=== PATIENT | female | born 1960 | race Caucasian/White ===

== ENCOUNTER → 2018-01-02 16:53 | Outpatient (CLI) | payer OTHER, SELFPAY | PROVIDERS: Family Provider Family Medicine; PCP Family Medicine; Visit Provider Physician Assistant Surgical | DX: R50.9 Fever, unspecified (principal) | CPT/HCPCS: 87081 ==

== ENCOUNTER → 2018-04-03 06:07 | Outpatient (CLI) | payer OTHER, SELFPAY ==
[2018-04-03 07:14] LABS: Hemoglobin A1c 5.9 % (4.2-6.3)
[2018-04-03 07:26] LABS: T4 Free Direct 1.14 ng/dL (0.76-1.46); Thyroid Stim Hormone (TSH) 2.07 uIU/mL (0.358-3.74)
== END ==
PROVIDERS: Family Provider Family Medicine; PCP Family Medicine; Visit Provider Family Medicine
DX: Z00.01 Encounter for general adult medical examination with abnormal findings (principal); E03.9 Hypothyroidism, unspecified; E78.5 Hyperlipidemia, unspecified; R73.01 Impaired fasting glucose
CPT/HCPCS: 36415; 83036; 84439; 84443

== ENCOUNTER 2018-04-16 18:30 | Outpatient (RCR) | payer OTHER, SELFPAY ==
--- NOTE | 2018-02-19 18:29 | HP.PTEVAL ---
Patient's Visit Information SUREKHA DOLAN is a 57 year old F referred to Physical Therapy by Brian Del Angel DO with a diagnosis of orthotics. Date of Evaluation: 02/19/18 Physical Therapist: Bk Phelps DPT, OC - Visit Plan Frequency: 2 visits total. Plan: Molded orthotics, call when they are in for dispensing. Pt does not want more therapy for knee or PFitis and not ordered. - Subjective Subjective: Has had orthotics in the past and now legs are cramping again as are feet. WEars a knee brace on R knee for OA. H/O plantarfasciitis whcih it helped with but that is getting worse again lately. Old orthotics are 3 yo and she wears them but does not have them on now. Has had orthotics for 15 years. R knee hurts daily to 7/10 with lots of WB anteriorly. Has bone spurs on R patella. 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 Has knee injections intermittently. B foot pain in am to 7/10 whcih gets better as the day goes on. Doing appropriate stretches and just needs orthotics. Cramps in the calves alot. Exercises. Sleep is OK except cramps. Basic ADLs are OK. Needs to exercise. Knows what to do, just wants orthotics. Nuclear meds on feet all day up and down. - Pain feet Pain Intensity (Out of 10): 1 Pain Intensity Range: 0, 7 R knee Pain Intensity (Out of 10): 2 Pain Intensity Range: 0, 8 - Objective Walks and transfers I, Tightness apparent in gastroc and soleus at 0 degrees DF. Otherwise Ankle aROM B WFL. Tender in R PF. Has moderate pes planus B, hindfoot are symmetrical. - Goals Goal 1:: Fit for and I in the use of custom orthotics. Goal Time Frame: 2-4 Weeks - Rehabilitation Potential Physical Therapy Diagnosis: orthotics. Rehabilitation Potential: Excellent - Anticipated Interventions Patient/Client Instruction: Educate patient on: Condition Comments: use orhtotics For the Purpose of:: To decrease pain Orthotics: Shoe insert For the Purpose of:: To decrease pain Thank you for the opportunity to evaluate your patient. For Medicare and Medicare HMO plans, please review the plan of care and approve it. It will need to be FAXED BACK to us at [phone] for Medicare purposes. Please let me know if there are questions or concerns regarding this plan of care. Physician Signature: Date:
--- NOTE | 2018-04-16 18:45 | HP.PTDCSUM ---
HP - PT D/C Summary It has been my pleasure to treat SUREKHA DOLAN under orders from Brian Del Angel DO, for the diagnosis of orthotics for a total of 2 visit(s). Discharge Date: 04/16/18 Please see the following information for a summary of their discharge status. - Subjective Subjective: Doing Ok. Ready for orthotics. - Pain feet Pain Intensity (Out of 10): 1 R knee Pain Intensity (Out of 10): 2 - Objective Objective/Function: good fit in shoe and patient walks comfortably in them today. - Goals Goal 1:: Fit for and I in the use of custom orthotics. Goal Progress: Goal Met - Plan Plan: D/C - D/C Information Discharge Comments: Patient orthotics fit well and will call if problems. If there are questions or concerns regarding this patient's physical therapy, please feel free to call me at [phone]. Thank you for the referral of this patient. Sincerely, Bk Phelps, DPT, OC
== END 2018-04-16 19:00 | disposition home or self-care (01) ==
LOC: PT 18:30
PROVIDERS: Family Provider Family Medicine; PCP Family Medicine; Visit Provider Family Medicine
DX: M72.2 Plantar fascial fibromatosis (principal)
CPT/HCPCS: 97161; 97760; 97763

== ENCOUNTER 2018-09-14 15:00 | Outpatient (RCR) | payer OTHER, SELFPAY ==
--- NOTE | 2018-08-21 15:56 | HP.PTEVAL_ITS ---
Patient's Visit Information SUREKHA DOLAN is a 57 year old F referred to Physical Therapy by Polo Herr MD with a diagnosis of OA RIGHT KNEE. Date of Evaluation: 08/21/18 Physical Therapist: Ekaterina Moore, PT, Cert MDT - Visit Plan Frequency: 2-3x /Week Duration: 4-6 Weeks Plan: *GETS DIZZINESS IN LYING*. AQUATIC THERAPY FOR PAIN RELEIF, POSTURE CORRECTION/STRENGTHENING, INSTRUCTION IN APPROPRIATE BODY MECHANICS AND ACTIVITY MODIFICATIONS. DLS STARTING WITH A NEUTRAL SPINE PROGRESSING ROM TOLERATED. THADDEUS LE ROM, STRETCHING AND STRENGTHENING. HEP INSTRUCTION. 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 HAS NOT TAKEN ANY TIME OFF WORK FOR THIS PER PATIENT REPORT. Disability: NO. Present symptoms: RIGHT KNEE PAIN. Present since: COUPLE OF YEARS. Pain Scale: WORST 10/10, LEAST 3/10. Currently: 5/10. Commenced as a result of: NO APPARENT REASON BUT SHE REPORTS SHE STOOD UP FROM A LOW CHAIR AT WORK BEGINNING OF JUNE AND HER RIGHT KNEE POPPED. SHE REPORTS HER KNEE GOT A LOT WORSE AFTER THAT. Symptoms at onset: KNEE CAP. Worse: PUSHING OFF RIGHT LEG, GOING UP AND DOWN STEPS IS MURDER, SQUATTING, GETTING IN/OUT OF CAR, GETTING OFF TOLIET, GETTING OUT OF A CHAIR, PROLONG STANDING. Better: RESTING IT WITH LEG ELEVATED, PRESCRIPTION CREAM, BRACE (MEDIAL TERRAZZO WORKER BRACE) BUT NO LONGER WEARING IT BECAUSE DR. HERR TOLD HER BEGINNING OF JUNE SHE DIDN'T KNEE IT. Disturbed sleep: YES. Previous history/Previous treatment: HISTORY OF RIGHT KNEE SURGERY IN LATE 70'S TO CLEAN THINGS OUT (BOTH KNEES ACTUALLY). THIS EPISODE SHE HAS HAD ABOUT [address] CLAYTON AND THEY HELPED SOME. DR. HERR ALSO GAVE HER A STEROID SHOT IN MAY 2018 AND ALSO RECEIVED A GEL SHOT BY DR. HERR BEGINNING OF JUN 2018 AND THAT SHOT DIDN'T HELP AND PATIENT THINKS IT MADE IT WORSE. NO PT FOR KNEE IN THE PAST. Gait: SINCE THE BEGINNING OF JUNE SHE HAS TO WALK VERY CAREFULLY AND WALKING IS VERY PAINFUL AND SHE LIMPS AND GIMPS SHE REPORTS SHE CAN NOT WALK FAST. Accidents: NO. NO FALLS. Unexplained weight loss: NO. Imaging: RIGHT KNEE X-RAY JUL 2017 - MILD DEGENERATIVE ARTHROSIS OF MEDIAL TIBIOFEMORAL COMPARTMENT. NO MRI. NO RECENT X-RAYS. STATES DR. HERR WILL NOT ORDER MRI. PMH: 2 BACK SURGERIES 2014 AND 1999. CERVICAL DISTONIA - TREATED WITH BOTOX, VESTIBULAR NEURITIS WITH VESTIBULAR SYSTEM DAMAGE AND BALANCE PROBLEMS. ALSO GETS DIZZINESS LYING DOWN. OTHER: LIVES UPSTAIRS SO HAS TO DO A LOT OF STEPS. PLOF (Prior Level of Function): PRIOR TO THE BEGINNING OF JUN 2018 SHE WAS ABLE TO DO EVERYTHING WITH LESS PAIN. - Objective Sitting/Standing Posture: POOR. Other Observations: INDEP ANTALGIC GAIT INTO PT WITHOUT ANY ASSISTIVE DEVICES WITH DECREASED CADANCE AND LIMPING ON RIGHT LE. Motor deficit: LLE STRENGTH 5/5 WITH MMT'ING EXCEPT HIP 4/5. RIGHT LE: HIP 4-/5, KNEE EXT 3-/5, KNEE FLEX 4-/5 IN AVAILABLE ROM, ANKLE 5/5. Sensory deficit: NO. ROM deficit: RIGHT KNE AROM IN SUPINE WITH A HEEL SLIDE -8 DEG EXT TO 106 DEG FLEX. Reflexes: NT. Dural Signs: NEGATIVE THADDEUS LE'S. Core strength: POOR. Palpation: RIGHT KNEE MILD EDEMA - LOCALIZED TO KNEE. HER RIGHT KNEE IS TENDER THROUGH OUT INCLUDING MEDIAL, LATERAL, ANTERIOR AND POSTERIOR. PATIENT IS EXPRESSING GREAT FRUSTRATION AND MAYBE EVEN DEPRESSION DUE TO THE PAIN AND NOT KNOWING WHAT IS CAUSEING IT - STATES SHE HAS BEEN PLANNING TO CALL DR. CLAYTON AND THIS PT ENCOURAGED HER TO DO SO AND TO TRY AQUATIC THERAPY. - Goals Goal 1:: DECREASE C/O RIGHT KNEE PAIN Goal Time Frame: 4-6 Weeks Goal 2:: IMPROVE ADL, STANDING, WALKING AND SLEEP FUNCTION Goal Time Frame: 4-6 Weeks Goal 3:: INDEP HEP Goal Time Frame: 4-6 Weeks - Rehabilitation Potential Rehabilitation Potential: Fair - Anticipated Interventions Patient/Client Instruction: Educate patient on: Condition, Plan of Care, Risk Factors, Benefits of Fitness Program For the Purpose of:: To improve self management Therapeutic Exercise to Include: Strength training, Body mechanics, Postural training, Flexibilty training, In an aquatic setting, Active ROM For the Purpose of:: To decrease pain, To increase ROM, To improve muscle performance and motor function, To increase tolerance to activity/condition/ position, To improve ability of physical actions for home/community/work/leisure TENS: Yes IF ES: Yes Cryotherapy (ice pack, ice massage): Yes Thermo therapy (hot pack): Yes Ultrasound (thermal/non thermal): Yes For the Purpose of:: To decrease pain, To decrease swelling/inflammation, To increase ROM, To improve nutrient delivery to tissue Thank you for the opportunity to evaluate your patient. For Medicare and Medicare HMO plans, please review the plan of care and approve it. It will need to be FAXED BACK to us at [phone] for Medicare purposes. For Medicare only, by signing this I certify the plan of care. Please let me know if there are questions or concerns regarding this plan of care. Physician Signature: Date:
--- NOTE | 2018-09-14 15:31 | HP.PTDCSUM ---
HP - PT D/C Summary It has been my pleasure to treat SUREKHA DOLAN under orders from Polo Herr MD, for the diagnosis of OA RIGHT KNEE for a total of 10 visit(s). Discharge Date: Please see the following information for a summary of their discharge status. - Subjective Subjective: PATIENT REPORTS SHE REALLY ISN'T BETTING BETTER BUT FOR THE MOST PART SHE COULD TOLERATED THE WATER EX'S. SHE REPORTS LIKING SOME INCREASED FREEDOM OF MVMT IN THE POOL THAT SHE DOESN'T HAVE ON LAND. STATES SHE DOESN'T THINK SHE CAN TOLERATED LAND EX'S. SHE REPORTS HER KNEE IS JUST SO SORE. JUST CAME FROM WORKING 7 HOURS. PATIENT REPORTS SHE JUST REALLY WANTS TO KNOW WHAT IS WRONG WITH HER KNEE AND SHE IS GOING TO GO BACK TO DR. CLAYTON NEXT WEEK. - Pain R knee Pain Intensity (Out of 10): 9 - Objective Objective/Function: PATIENT IS NOT MAKING SIGNIFICANT PROGRESS WITH HER KNEE HOWEVER SHE IS NOW INDEP WITH A POOL PROGRAM THAT SHE CAN TOLERATE WITHOUT INCREASED KNEE PAIN. INDEP ANTALGIC GAIT INTO PT WITHOUT ANY ASSISTIVE DEVICES WITH DECREASED CADANCE AND LIMPING ON RIGHT LE. Motor deficit: LLE STRENGTH 5/5 WITH MMT'ING EXCEPT HIP 4/5. RIGHT LE: HIP 4-/5, KNEE EXT 3-/5, KNEE FLEX 4-/5 IN AVAILABLE ROM, ANKLE 5/5. Sensory deficit: NO. ROM deficit: RIGHT KNEE AROM IN SUPINE WITH A HEEL SLIDE -7 DEG EXT TO 111 DEG FLEX. Reflexes: NT. Core strength: POOR. Palpation: RIGHT KNEE MILD EDEMA - LOCALIZED TO KNEE. HER RIGHT KNEE IS TENDER THROUGH OUT INCLUDING MEDIAL, LATERAL, ANTERIOR AND POSTERIOR. PATIENT IS AGAIN EXPRESSING GREAT FRUSTRATION WITH HER KNEE PAIN AND DYSFUNCTION LIMITING HER NORMAL ACTIVITES. APPOINTMENT WITH DR. CLAYTON PENDING SEP 23 2018. - Goals Goal 1:: DECREASE C/O RIGHT KNEE PAIN Goal Progress: Not Progressing Goal 2:: IMPROVE ADL, STANDING, WALKING AND SLEEP FUNCTION Goal Progress: Not Progressing Goal 3:: INDEP HEP Goal Progress: Not Progressing - Plan Plan: D/C DUE TO LACK OF IMPROVEMENT BUT ENCOURAGED PATIENT TO KEEP UP WITH THE POOL EX'S ON HER OWN TOLERATED. - D/C Information If there are questions or concerns regarding this patient's physical therapy, please feel free to call me at [phone]. Thank you for the referral of this patient. Sincerely, Ekaterina Moore, PT, Cert MDT
== END 2018-09-14 19:00 | disposition home or self-care (01) ==
LOC: PT 15:00
PROVIDERS: Family Provider Family Medicine; PCP Family Medicine; Referring Provider Orthopaedic Surgery; Visit Provider Orthopaedic Surgery
DX: M17.11 Unilateral primary osteoarthritis, right knee (principal)
CPT/HCPCS: 97110; 97113; 97162; 97530

== ENCOUNTER → 2018-10-08 12:04 | Outpatient (CLI) | payer OTHER, SELFPAY ==
--- NOTE | 2018-10-08 12:08 | MRI_ITS ---
STUDY: MRI RIGHT KNEE REASON FOR EXAM: Right knee pain increasing for 2 years, swelling, prior surgery. TECHNIQUE: Standardized fat and water weighted pulse sequences were obtained in all 3 orthogonal planes. COMPARISON: Radiographs 08/15/2017. FINDINGS: Normal medial meniscus. There is mild arthrosis of the medial femorotibial compartment with mild chondral thinning (T2 sagittal image 18). There is very mild subchondral bone edema of the medial tibial plateau (T2 sagittal images 16, 17), a stress phenomenon. Normal medial collateral ligamentous complex (MCL). Normal distal semimembranosus, gracilis and semitendinosus tendons. Normal lateral meniscus. Normal hyaline cartilage of the lateral femorotibial compartment. Normal lateral femoral condyle and tibial plateau. Normal proximal tibiofibular articulation. Normal lateral collateral (fibular) ligament. Normal popliteus tendon. Normal biceps femoris tendon. Normal anterior cruciate ligament (ACL). Normal posterior cruciate ligament (PCL). Normal congruent patellofemoral articulation. There is intermediate to high-grade chondromalacia of the medial patellar facet (T2 axial image 8) with very mild subchondral cystic change. Normal medial and lateral patellar retinaculum. There is distal quadriceps tendinosis and an intrasubstance partial tear of the distal quadriceps tendon measuring 0.6 cm in length (T2 sagittal image 13; T2 coronal image 28). Normal patellar tendon. Normal Hoffa's fat pad. There is no joint effusion. There is a small popliteal cyst (T2 sagittal images 18-22). There is edema in the anterior subcutis adipose space. The otherwise visualized osseous structures are unremarkable. MRI/Lower Ext Joint Only (Routine) IMPRESSION: Mild arthrosis of the medial femorotibial compartment. Chondromalacia patellae. Intrasubstance partial tear and tendinosis of the distal quadriceps tendon. Very mild subchondral bone edema of the medial tibial plateau, a stress phenomenon. Small popliteal cyst. Electronically Signed: José Miguel Irizarry MD at 14:14 EST Tel , Service support ,
== END ==
PROVIDERS: Family Provider Family Medicine; PCP Family Medicine; Referring Provider Family Medicine; Visit Provider Family Medicine
DX: M25.561 Pain in right knee (principal)
CPT/HCPCS: 73721

== ENCOUNTER 2018-12-18 19:04 | Inpatient (IN) | payer OTHER, SELFPAY ==
[2018-12-18 19:08] VITALS: BP 127/73; PULSE 86; RESP 18; TEMP 36.5; O2SAT 95
--- NOTE | 2018-12-18 19:38 | NURSING ---
Patient arrived from [facility], oriented to room and call light.
--- NOTE | 2018-12-18 19:45 | PCM.HP.STD ---
Problem List (1) Osteoarthritis of right knee Status: Chronic (2) Anxiety Status: Chronic (3) Muscle spasm Status: Chronic (4) Hypertension Status: Chronic (5) Allergic rhinitis Status: Chronic (6) Sleep apnea Status: Chronic (7) Coronary artery disease Status: Chronic (8) GERD (gastroesophageal reflux disease) Status: Chronic (9) Herpes zoster Status: Chronic (10) Carotid stenosis Status: Chronic (11) Depression Status: Chronic (12) Hypothyroidism Status: Chronic History of Present Illness Date of Admission: 12/18/18 Chief Complaint: Here for rehabilitation, strengthening, prior to discharge home with family. The patient is a 58 year old Female with below past medical history hospitalized at [facility] for right total knee replacement 12/16/[address] Polo Herr. Post-operative course uncomplicated. 12/18/2018 Hemoglobin 14.2. 12/18/2018 Admit to TCU with debility here for rehabilitation, strengthening, prior to discharge home with family. Past Medical History Past Medical History (Chronic Problems): Chronic Problems (Last Reviewed 01/02/18 @ 10:33 by Ara Merritt) Osteoarthritis of right knee (Chronic) Anxiety (Chronic) Muscle spasm (Chronic) Hypertension (Chronic) Allergic rhinitis (Chronic) Sleep apnea (Chronic) Coronary artery disease (Chronic) GERD (gastroesophageal reflux disease) (Chronic) Herpes zoster (Chronic) Carotid stenosis (Chronic) Depression (Chronic) Hypothyroidism (Chronic) Allergies atenolol Allergy (Verified 01/02/18 10:33) Other neuropathy in my legs butorphanol tartrate [From Stadol] Allergy (Verified 01/02/18 10:33) Anaphylaxis doxycycline Allergy (Verified 01/02/18 10:33) Unknown prochlorperazine edisylate [From Compazine] Allergy (Verified 01/02/18 10:33) Swelling prochlorperazine maleate [From Compazine] Allergy (Verified 01/02/18 10:33) Swelling tetracycline Allergy (Verified 01/02/18 10:33) Unknown Home Medications: Ambulatory Orders Medication Instructions Recorded Levothyroxine [Synthroid] 75 mcg PO DAILY 07/09/13 Amlodipine [Norvasc] 5 mg PO QHS 04/26/15 Esomeprazole Mag Trihydrate 40 mg PO QHS 04/28/15 [Nexium] Diazepam [Valium] 5 mg PO DAILY PRN PRN 09/25/16 Lorazepam [Ativan] 1 mg PO DAILY PRN PRN 09/25/16 Mometasone Furoate [Nasonex] 2 spray NASAL DAILY PRN 09/25/16 Surgical History: cholecystectomy, - - Breast reduction, BLTL, L wrist ganglion cyst removal, back surgery, knee arthroscopy, lumpectomy, bladder suspension. 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 Lives: With Family Smoking Status: Former smoker Tobacco Use: Non-smoker Alcohol: Occasional Drugs: None - *Family History Maternal History Items: No pertinent history Paternal History Items: No pertinent history Review of Systems Constitutional: Denies: Chills, Fever, Weight Change HEENT: Denies: Head Aches, Sinus Congestion, Sinus Drainage Cardiovascular: Denies: Chest Pain, Palpitations Respiratory: Denies: Cough, Shortness of breath at rest, Sputum production Gastrointestinal: Denies: Abdominal Pain, Nausea, Vomiting Genitourinary: Denies: Dysuria Musculoskeletal: Denies: Joint Pain, Joint Tenderness Skin: Denies: Rash, Wounds Neurological: Denies: Numbness, Tingling, Focal weakness Psychiatric: Denies: Anxiety, Depression, Homicidal Ideations, Suicidal Ideations Hematologic/ Lymphatic: Denies: Easy Bruising, Easy Bleeding VTE Information - Inpt Only VTE Present on Admission: No VTE Mechan Device Prophylaxis: Knee High MOR Hose VTE Pharm Prophylaxis ordered?: Yes - Physical Exam General: Alert, Oriented x3, Cooperative HEENT: Atraumatic, PERRLA, EOMI, Normocephalic Neck: Supple, No JVD, Negative Carotid Bruits Lungs: Clear to auscultation, Normal air movement Cardiovascular: Regular rate, No murmurs Abdomen: Bowel Sounds Present, Soft, Non Tender Extremities: No edema, Capillary Refill Less than 3 Seconds Skin: No rashes, No breakdown Musculoskeletal: No Tenderness to Palpation of Joints or Extremities Neurological: Cranial nerves II-XII grossly intact Psych/Mental Status: Normal Affect, Appropriate Vital Signs Temp Pulse Resp BP Pulse Ox 97.7 F L 86 18 127/73 H 95 12/18/18 19:08 12/18/18 19:08 12/18/18 19:08 12/18/18 19:08 12/18/18 19:08 Oxygen Delivery Method Room Air Assessment/Plan All Active Problems (Last Reviewed 01/02/18 @ 10:33 by Ara Merritt) Nausea (Acute) Otitis media (Acute) Sinusitis (Acute) Vestibular neuritis (Acute) Vertigo (Acute) 58 year old female with below past medical history hospitalized for right total knee replacement 12/16/[address] Polo Herr, postoperative course uncomplicated, admitted to TCU with debility, here for rehabilitation, strengthening, prior to discharge home with family. Debility - PT/OT. Pain - Tylenol 1000MG Q8H, Tramadol 50MG Q4H PRN moderate pain, Oxycodone 5MG Q4H PRN severe pain. Bowel - Miralax 17GM daily, Senokot 2 tablets BID, Dulcolax 10MG daily PRN. Pneumonia vaccination - Administer Prevnar 13 and/or Pneumovax 23 as necessary. DVT prophylaxis - Lovenox 40MG SC daily thru 01/02/2019. Hypertension - Amlodipine 5MG QHS. Vitamin D deficiency - D3 1000IU daily. Anxiety - Diazepam 5MG daily PRN. Allergic Rhinitis - Flonase 2 spray daily PRN. Hypothyroidism - Levothyroxine 75MCG daily. Dizziness - Meclizine 12.5MG TID PRN, Ativan 1MG daily PRN. Insomnia - Melatonin 5MG QHS. Nutrition - MVI daily. GERD - Pantoprazole 40MG QHS.
--- NOTE | 2018-12-18 20:01 | HP.PCM_ITS ---
Problem List (1) Osteoarthritis of right knee Status: Chronic (2) Anxiety Status: Chronic (3) Muscle spasm Status: Chronic (4) Hypertension Status: Chronic (5) Allergic rhinitis Status: Chronic (6) Sleep apnea Status: Chronic (7) Coronary artery disease Status: Chronic (8) GERD (gastroesophageal reflux disease) Status: Chronic (9) Herpes zoster Status: Chronic (10) Carotid stenosis Status: Chronic (11) Depression Status: Chronic (12) Hypothyroidism Status: Chronic History of Present Illness Date of Admission: 12/18/18 Chief Complaint: Here for rehabilitation, strengthening, prior to discharge home with family. The patient is a 58 year old Female with below past medical history hospitalized at [facility] for right total knee replacement 12/16/[address] Polo Herr. Post-operative course uncomplicated. 12/18/2018 Hemoglobin 14.2. 12/18/2018 Admit to TCU with debility here for rehabilitation, strengthening, prior to discharge home with family. Past Medical History Past Medical History (Chronic Problems): Chronic Problems (Last Reviewed 01/02/18 @ 10:33 by Ara Merritt) Osteoarthritis of right knee (Chronic) Anxiety (Chronic) Muscle spasm (Chronic) Hypertension (Chronic) Allergic rhinitis (Chronic) Sleep apnea (Chronic) Coronary artery disease (Chronic) GERD (gastroesophageal reflux disease) (Chronic) Herpes zoster (Chronic) Carotid stenosis (Chronic) Depression (Chronic) Hypothyroidism (Chronic) Allergies atenolol Allergy (Verified 01/02/18 10:33) Other neuropathy in my legs butorphanol tartrate [From Stadol] Allergy (Verified 01/02/18 10:33) Anaphylaxis doxycycline Allergy (Verified 01/02/18 10:33) Unknown prochlorperazine edisylate [From Compazine] Allergy (Verified 01/02/18 10:33) Swelling prochlorperazine maleate [From Compazine] Allergy (Verified 01/02/18 10:33) Swelling tetracycline Allergy (Verified 01/02/18 10:33) Unknown Home Medications: Ambulatory Orders Medication Instructions Recorded Levothyroxine [Synthroid] 75 mcg PO DAILY 07/09/13 Amlodipine [Norvasc] 5 mg PO QHS 04/26/15 Esomeprazole Mag Trihydrate 40 mg PO QHS 04/28/15 [Nexium] Diazepam [Valium] 5 mg PO DAILY PRN PRN 09/25/16 Lorazepam [Ativan] 1 mg PO DAILY PRN PRN 09/25/16 Mometasone Furoate [Nasonex] 2 spray NASAL DAILY PRN 09/25/16 Surgical History: cholecystectomy, - - Breast reduction, BLTL, L wrist ganglion cyst removal, back surgery, knee arthroscopy, lumpectomy, bladder suspension. 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 Lives: With Family Smoking Status: Former smoker Tobacco Use: Non-smoker Alcohol: Occasional Drugs: None - *Family History Maternal History Items: No pertinent history Paternal History Items: No pertinent history Review of Systems Constitutional: Denies: Chills, Fever, Weight Change HEENT: Denies: Head Aches, Sinus Congestion, Sinus Drainage Cardiovascular: Denies: Chest Pain, Palpitations Respiratory: Denies: Cough, Shortness of breath at rest, Sputum production Gastrointestinal: Denies: Abdominal Pain, Nausea, Vomiting Genitourinary: Denies: Dysuria Musculoskeletal: Denies: Joint Pain, Joint Tenderness Skin: Denies: Rash, Wounds Neurological: Denies: Numbness, Tingling, Focal weakness Psychiatric: Denies: Anxiety, Depression, Homicidal Ideations, Suicidal Ideations Hematologic/ Lymphatic: Denies: Easy Bruising, Easy Bleeding VTE Information - Inpt Only VTE Present on Admission: No VTE Mechan Device Prophylaxis: Knee High MOR Hose VTE Pharm Prophylaxis ordered?: Yes - Physical Exam General: Alert, Oriented x3, Cooperative HEENT: Atraumatic, PERRLA, EOMI, Normocephalic Neck: Supple, No JVD, Negative Carotid Bruits Lungs: Clear to auscultation, Normal air movement Cardiovascular: Regular rate, No murmurs Abdomen: Bowel Sounds Present, Soft, Non Tender Extremities: No edema, Capillary Refill Less than 3 Seconds Skin: No rashes, No breakdown Musculoskeletal: No Tenderness to Palpation of Joints or Extremities Neurological: Cranial nerves II-XII grossly intact Psych/Mental Status: Normal Affect, Appropriate Vital Signs Temp Pulse Resp BP Pulse Ox 97.7 F L 86 18 127/73 H 95 12/18/18 19:08 12/18/18 19:08 12/18/18 19:08 12/18/18 19:08 12/18/18 19:08 Oxygen Delivery Method Room Air Assessment/Plan All Active Problems (Last Reviewed 01/02/18 @ 10:33 by Ara Merritt) Nausea (Acute) Otitis media (Acute) Sinusitis (Acute) Vestibular neuritis (Acute) Vertigo (Acute) 58 year old female with below past medical history hospitalized for right total knee replacement 12/16/[address] Polo Herr, postoperative course uncomplicated, admitted to TCU with debility, here for rehabilitation, strengthening, prior to discharge home with family. * Debility - PT/OT. * Pain - Tylenol 1000MG Q8H, Tramadol 50MG Q4H PRN moderate pain, Oxycodone 5MG Q4H PRN severe pain. * Bowel - Miralax 17GM daily, Senokot 2 tablets BID, Dulcolax 10MG daily PRN. * Pneumonia vaccination - Administer Prevnar 13 and/or Pneumovax 23 as nec essary. * DVT prophylaxis - Lovenox 40MG SC daily thru 01/02/2019. * Hypertension - Amlodipine 5MG QHS. * Vitamin D deficiency - D3 1000IU daily. * Anxiety - Diazepam 5MG daily PRN. * Allergic Rhinitis - Flonase 2 spray daily PRN. * Hypothyroidism - Levothyroxine 75MCG daily. * Dizziness - Meclizine 12.5MG TID PRN, Ativan 1MG daily PRN. * Insomnia - Melatonin 5MG QHS. * Nutrition - MVI daily. * GERD - Pantoprazole 40MG QHS.
[2018-12-18 21:07] VITALS: BMI 41.9
[2018-12-18 21:12] VITALS: BMI 42.0
[2018-12-18] MEDS: traMADol 50 MG Tablet PO (21:21)
[2018-12-18] MEDS: LORazepam 1 MG Tablet PO (21:21)
[2018-12-18] MEDS: Pantoprazole Sodium 40 MG Tablet PO (21:23)
[2018-12-18] MEDS: amLODIPine 5 MG Tablet PO (21:23)
[2018-12-18] MEDS: MELATONIN 10 MG TABLET 5 MG PO (21:23)
[2018-12-19] MEDS: Acetaminophen 500 MG Tablet 1000 MG PO ×2 (05:15→13:24)
[2018-12-19] MEDS: Enoxaparin 40 MG/0.4 ML Syringe SC (05:16)
[2018-12-19] MEDS: Levothyroxine 75 MCG Tablet PO (05:16)
[2018-12-19] MEDS: Polyethylene Glycol 3350 17 GM PACKET PO (05:17)
[2018-12-19] MEDS: Senna Tablet 2 TABLET PO (05:17)
[2018-12-19] MEDS: Multivitamins,Therapeutic Tablet 1 TABLET PO (08:11)
[2018-12-19 08:45] LABS: Absolute Lymphocyte Count 2.02 X10^3/ul (0.83-4.51); Absolute Neutrophil Count 7.1 X10^3/uL (2.0-7.7); Basophil# 0.05 X10^3/uL; Basophil% 0.5 % (0-1); Eosinophil# 0.34 X10^3/uL; Eosinophils% 3.3 % (0-5); Hematocrit 41.9 % (37-47); Hemoglobin 13.9 g/dl (12.0-15.0); Lymphocyte # 2.02 X10^3/ul (4.0); Lymphocyte % 19.7 % (19-41); Mean Corp Hgb Conc 33.2 g/gl (32-36); Mean Corpuscular Hgb 28.1 pg (27.0-32.0); Mean Corpuscular Volume 84.8 fL (81-99); Mean Platelet Vol. 8.6 fl (6.2-12.0); Monocyte% 6.8 % (0-10); Neutrophil # 7.12 X10^3/uL (2.7-7.7); Neutrophil % 69.3 % (47-70); Platelet Count 378 K/mm3 (150-450); RBC Distribution Width CV 13.7 % (11.6-14.6); RBC Distribution Width SD 41.9 fl (35.1-43.9); Red Blood Count 4.94 M/mm3 (4.2-5.4); White Blood Count 10.3 K/mm3 (4.4-11.0)
[2018-12-19 08:47] LABS: POSITIVE COUNT NO; POSITIVE DIFFERENTIAL NO; POSITIVE MORPHOLOGY NO
[2018-12-19 08:55] LABS: Anion Gap 8 (5-15); BUN 13 mg/dL (7-18); BUN/Creat Ratio 18.7 RATIO (10-20); Calcium,Total 8.4 mg/dL (8.5-10.1); Chloride 98 mmol/L (98-107); EST Glomerular Filtration Rate 92 mL/min (>60); Est Glom Filt Rate - Afr Amer 111 mL/min (>60); Estimated Creatinine Clearance 68.44 ml/min; Glucose 178 mg/dL (74-106); Potassium 3.2 mmol/L (3.5-5.1); Sodium Level 136 mmol/L (136-145)
[2018-12-19] MEDS: traMADol 50 MG Tablet PO ×2 (09:15→13:26)
[2018-12-19] MEDS: Tuberculin,Purif.prot.deriv. 50 TU/ML Vial 5 ML ID (11:38)
--- NOTE | 2018-12-19 13:17 | NURSING ---
Dr. Le updated on potassium level, new order for KCL 40mEq x1 now then 20mEq daily, recheck BMP in AM.
[2018-12-19 15:58] VITALS: BP 155/96; PULSE 76; RESP 18; TEMP 36.8; O2SAT 93
[2018-12-19] MEDS: MELATONIN 10 MG TABLET 5 MG PO (20:51)
[2018-12-19] MEDS: Pantoprazole Sodium 40 MG Tablet PO (20:52)
[2018-12-19] MEDS: amLODIPine 5 MG Tablet PO (20:52)
[2018-12-20] MEDS: LORazepam 1 MG Tablet PO (01:05)
[2018-12-20] MEDS: Levothyroxine 75 MCG Tablet PO (05:22)
[2018-12-20] MEDS: Enoxaparin 40 MG/0.4 ML Syringe SC (05:22)
[2018-12-20] MEDS: Polyethylene Glycol 3350 17 GM PACKET PO (05:24)
[2018-12-20 07:49] LABS: Anion Gap 9 (5-15); BUN 11 mg/dL (7-18); BUN/Creat Ratio 20.5 RATIO (10-20); Calcium,Total 8.4 mg/dL (8.5-10.1); Chloride 100 mmol/L (98-107); Creatinine, Serum 0.54 mg/dL (0.55-1.02); EST Glomerular Filtration Rate 124 mL/min (>60); Est Glom Filt Rate - Afr Amer 150 mL/min (>60); Estimated Creatinine Clearance 88.72 ml/min; Glucose 145 mg/dL (74-106); Sodium Level 138 mmol/L (136-145)
[2018-12-20] MEDS: Multivitamins,Therapeutic Tablet 1 TABLET PO (07:53)
[2018-12-20] MEDS: Bisacodyl 5 MG Tablet 10 MG PO (07:57)
--- NOTE | 2018-12-20 10:48 | NURSING ---
Dr. Le reviewed labs, new order to increase KCL to 40mEq BID and recheck BMP Friday. Tylenol made PRN.
[2018-12-20] MEDS: traMADol 50 MG Tablet PO ×2 (13:03→18:21)
[2018-12-20 16:00] VITALS: BP 138/74; PULSE 90; RESP 16; TEMP 36.9; O2SAT 95
[2018-12-20] MEDS: Senna Tablet 2 TABLET PO (16:54)
[2018-12-20] MEDS: Acetaminophen 500 MG Tablet 1000 MG PO (19:44)
[2018-12-20] MEDS: Pantoprazole Sodium 40 MG Tablet PO (21:10)
[2018-12-20] MEDS: amLODIPine 5 MG Tablet PO (21:10)
[2018-12-20] MEDS: MELATONIN 10 MG TABLET 5 MG PO (21:10)
[2018-12-21] MEDS: Levothyroxine 75 MCG Tablet PO (05:27)
[2018-12-21] MEDS: Enoxaparin 40 MG/0.4 ML Syringe SC (05:27)
[2018-12-21] MEDS: Polyethylene Glycol 3350 17 GM PACKET PO (05:27)
[2018-12-21] MEDS: Senna Tablet 2 TABLET PO ×2 (05:27→16:32)
[2018-12-21] MEDS: Multivitamins,Therapeutic Tablet 1 TABLET PO (08:16)
[2018-12-21] MEDS: traMADol 50 MG Tablet PO ×2 (08:59→12:56)
[2018-12-21] MEDS: Acetaminophen 500 MG Tablet 1000 MG PO (09:03)
--- NOTE | 2018-12-21 13:38 | CASEMGMT ---
Insurance Clinical updates faxed. Will await continued stay determination. Auth #[id number] BRENDA Mccloud
[2018-12-21 15:18] VITALS: BP 134/81; PULSE 80; RESP 16; TEMP 37.3; O2SAT 94
[2018-12-21] MEDS: MELATONIN 10 MG TABLET 5 MG PO (20:22)
[2018-12-21] MEDS: amLODIPine 5 MG Tablet PO (20:22)
[2018-12-21] MEDS: Pantoprazole Sodium 40 MG Tablet PO (20:22)
[2018-12-21] MEDS: LORazepam 1 MG Tablet PO (21:44)
[2018-12-22] MEDS: Acetaminophen 500 MG Tablet 1000 MG PO ×2 (02:49→11:47)
[2018-12-22 06:26] LABS: Anion Gap 8 (5-15); BUN 10 mg/dL (7-18); Calcium,Total 8.7 mg/dL (8.5-10.1); Chloride 102 mmol/L (98-107); Creatinine, Serum 0.56 mg/dL (0.55-1.02); EST Glomerular Filtration Rate 119 mL/min (>60); Est Glom Filt Rate - Afr Amer 144 mL/min (>60); Estimated Creatinine Clearance 85.55 ml/min; Glucose 127 mg/dL (74-106); Sodium Level 138 mmol/L (136-145)
[2018-12-22] MEDS: Levothyroxine 75 MCG Tablet PO (06:26)
[2018-12-22] MEDS: Enoxaparin 40 MG/0.4 ML Syringe SC (06:26)
[2018-12-22] MEDS: Multivitamins,Therapeutic Tablet 1 TABLET PO (08:53)
--- NOTE | 2018-12-22 11:03 | PHA.CONS_ITS ---
<ZulmaWaiTobias D - Last Filed: 12/22/18 10:57> Progress Note - Pharmacy Subjective: [] Objective: Allergies atenolol Allergy (Verified 01/02/18 10:33) Other neuropathy in my legs butorphanol tartrate [From Stadol] Allergy (Verified 01/02/18 10:33) Anaphylaxis doxycycline Allergy (Verified 01/02/18 10:33) Unknown prochlorperazine edisylate [From Compazine] Allergy (Verified 01/02/18 10:33) Swelling prochlorperazine maleate [From Compazine] Allergy (Verified 01/02/18 10:33) Swelling tetracycline Allergy (Verified 01/02/18 10:33) Unknown Current Medications Generic Name Dose Route Start Last Admin Trade Name Freq PRN Reason Stop Dose Admin Acetaminophen 1,000 mg 12/20/18 10:49 12/22/18 02:49 Tylenol PO 1,000 mg Q8H PRN Administration MILD PAIN (1-3/10) Amlodipine Besylate 5 mg 12/18/18 22:00 12/21/18 20:22 Norvasc PO 5 mg QHS ANIVAL Administration Bisacodyl 10 mg 12/18/18 21:35 12/20/18 07:57 Dulcolax PO 10 mg DAILY PRN Administration Constipation Cholecalciferol 1,000 unit 12/19/18 06:00 12/22/18 06:26 Vitamin D PO 1,000 unit DAILY ANIVAL Administration Diazepam 5 mg 12/18/18 19:53 Valium PO DAILY PRN PRN ANXIETY Enoxaparin Sodium 40 mg 12/19/18 06:00 12/22/18 06:26 Lovenox SC 01/02/19 06:01 40 mg DAILY@0600 ANIVAL Administration Fluticasone Propionate 2 spray 12/18/18 19:53 Flonase Nasal [place] NASAL DAILY PRN NASAL CONGESTION Levothyroxine Sodium 75 mcg 12/19/18 06:00 12/22/18 06:26 Synthroid PO 75 mcg DAILY ANIVAL Administration Lorazepam 1 mg 12/18/18 19:53 12/21/18 21:44 Ativan PO 1 mg DAILY PRN PRN Administration Vertigo Meclizine HCl 12.5 mg 12/18/18 19:55 Antivert PO TID PRN PRN DIZZINESS Melatonin 5 mg 12/18/18 22:00 12/21/18 20:22 Melatonin PO 5 mg QHS ANIVAL Administration Multivitamins 1 tablet 12/19/18 08:00 12/22/18 08:53 Multivitamin PO 1 tablet DAILYCM [facility] Administration Oxycodone HCl 5 mg 12/18/18 21:35 Oxyir PO Q4H PRN PRN SEVERE PAIN (6-10/10) Pantoprazole Sodium 40 mg 12/18/18 22:00 12/21/18 20:22 Protonix PO 40 mg QHS ANIVAL Administration Polyethylene Glycol 17 gm 12/19/18 06:00 12/22/18 06:28 Miralax PO Not Given DAILY ANIVAL Potassium Chloride 40 meq 12/20/18 17:00 12/22/18 08:53 K-Dur PO 40 meq BIDCM ANIVAL Administration Senna 2 tablet 12/19/18 06:00 12/22/18 06:28 Senokot PO Not Given BID ANIVAL Tramadol HCl 50 mg 12/18/18 20:01 12/21/18 12:56 Ultram PO 50 mg Q4H PRN PRN Administration MODERATE PAIN (4-5/10) Tuberculin PPD 5 tu 12/26/18 10:00 Tubersol, Aplisol, Ppd ID 12/26/18 10:01 X1 ONE Problem List (Last Reviewed 01/02/18 @ 10:33 by Ara Merritt) Osteoarthritis of right knee (Chronic) Anxiety (Chronic) Muscle spasm (Chronic) Hypertension (Chronic) Allergic rhinitis (Chronic) Sleep apnea (Chronic) Coronary artery disease (Chronic) GERD (gastroesophageal reflux disease) (Chronic) Herpes zoster (Chronic) Carotid stenosis (Chronic) Depression (Chronic) Vital Signs Temp Pulse Resp BP Pulse Ox 99.1 F 80 16 134/81 H 94 12/21/18 15:18 12/21/18 15:18 12/21/18 15:18 12/21/18 15:18 12/21/18 15:18 Oxygen Delivery Method Room Air Weight: 104.014 kg Body Mass Index (BMI) 41.9 Sodium 138 mmol/L (136-145) 12/22/18 05:20 Potassium 4.0 mmol/L (3.5-5.1) 12/22/18 05:20 Chloride 102 mmol/L (98-107) 12/22/18 05:20 Carbon Dioxide 28.0 mmol/L (21.0-32.0) 12/22/18 05:20 Anion Gap 8 (5-15) 12/22/18 05:20 BUN 10 mg/dL (7-18) 12/22/18 05:20 Creatinine 0.56 mg/dL (0.55-1.02) 12/22/18 05:20 Est GFR (MDRD) Af Amer 144 mL/min (>60) 12/22/18 05:20 Est GFR (MDRD) Non-Af 119 mL/min (>60) 12/22/18 05:20 BUN/Creatinine Ratio 18.0 RATIO (10-20) 12/22/18 05:20 Glucose 127 mg/dL (74-106) H 12/22/18 05:20 Assessment/Plan: 1) Pain APAP for mild pain, tramadol for moderate pain, oxycodone for severe pain. Continue to monitor daily pain scores, prn medication use. 2) HTN Amlodipine. Continue to monitor BP/HR. 3) Hypothyroidism Levothyroxine. Continue to monitor s/s hyper/hypothyroidism. 4) GI Pantoprazole. Continue to monitor s/s GI distress. 5) Nutrition KCL, D. Continue to monitor electrolytes. 6) Sleep Melatonin at HS. Continue to monitor for insomnia. 7) DVT PPx Enoxaparin thru 01/02. Continue to monitor s/s bleeding/clot. Psychotropic Medications: * 8) Anxiety/Vertigo Diazepam for anxiety, lorazepam for vertigo, meclizine for dizziness. Continue to monitor prn medication use, for s/s anxiety. * Please evaluate the need for having 2 prn benzodiazepines available for use in addition for meclizine when considering vertigo. Consider dc one. Please also clarify instructions. Typically, diazepam is used for vertigo and lorazepam is used for anxiety. Unnecessary Medications: None Bowel Regimen: 9) Senna, PEG, prn bisacodyl. Continue to monitor prn medication use, for constipation/diarrhea. Date of Note:: 12/22/18 - Provider Comments Provider responsibility: Provider responsible to enter orders to implement recommendations <Anup Le Chi - Last Filed: 12/22/18 17:29> Progress Note - Pharmacy Subjective: [] Objective: Allergies atenolol Allergy (Verified 01/02/18 10:33) Other neuropathy in my legs butorphanol tartrate [From Stadol] Allergy (Verified 01/02/18 10:33) Anaphylaxis doxycycline Allergy (Verified 01/02/18 10:33) Unknown prochlorperazine edisylate [From Compazine] Allergy (Verified 01/02/18 10:33) Swelling prochlorperazine maleate [From Compazine] Allergy (Verified 01/02/18 10:33) Swelling tetracycline Allergy (Verified 01/02/18 10:33) Unknown Current Medications Generic Name Dose Route Start Last Admin Trade Name Freq PRN Reason Stop Dose Admin Acetaminophen 1,000 mg 12/20/18 10:49 12/22/18 11:47 Tylenol PO 1,000 mg Q8H PRN Administration MILD PAIN (1-310) Amlodipine Besylate 5 mg 12/18/18 22:00 12/21/18 20:22 Norvasc PO 5 mg QHS ANIVAL Administration Bisacodyl 10 mg 12/18/18 21:35 12/20/18 07:57 Dulcolax PO 10 mg DAILY PRN Administration Constipation Cholecalciferol 1,000 unit 12/19/18 06:00 12/22/18 06:26 Vitamin D PO 1,000 unit DAILY ANIVAL Administration Diazepam 5 mg 12/18/18 19:53 Valium PO DAILY PRN PRN ANXIETY Enoxaparin Sodium 40 mg 12/19/18 06:00 12/22/18 06:26 Lovenox SC 01/02/19 06:01 40 mg DAILY@0600 ANIVAL Administration Fluticasone Propionate 2 spray 12/18/18 19:53 Flonase Nasal [place] NASAL DAILY PRN NASAL CONGESTION Levothyroxine Sodium 75 mcg 12/19/18 06:00 12/22/18 06:26 Synthroid PO 75 mcg DAILY ANIVAL Administration Lorazepam 1 mg 12/18/18 19:53 12/21/18 21:44 Ativan PO 1 mg DAILY PRN PRN Administration Vertigo Meclizine HCl 12.5 mg 12/18/18 19:55 Antivert PO TID PRN PRN DIZZINESS Melatonin 5 mg 12/18/18 22:00 12/21/18 20:22 Melatonin PO 5 mg QHS ANIVAL Administration Multivitamins 1 tablet 12/19/18 08:00 12/22/18 08:53 Multivitamin PO 1 tablet DAILYCM ANIVAL Administration Oxycodone HCl 5 mg 12/18/18 21:35 Oxyir PO Q4H PRN PRN SEVERE PAIN (6-10/10) Pantoprazole Sodium 40 mg 12/18/18 22:00 12/21/18 20:22 Protonix PO 40 mg QHS ANIVAL Administration Polyethylene Glycol 17 gm 12/19/18 06:00 12/22/18 06:28 Miralax PO Not Given DAILY ANIVAL Potassium Chloride 40 meq 12/20/18 17:00 12/22/18 16:38 K-Dur PO 40 meq BIDCM ANIVAL Administration Senna 2 tablet 12/19/18 06:00 12/22/18 16:38 Senokot PO Not Given BID ANIVAL Tramadol HCl 50 mg 12/18/18 20:01 12/21/18 12:56 Ultram PO 50 mg Q4H PRN PRN Administration MODERATE PAIN (4-5/10) Tuberculin PPD 5 tu 12/26/18 10:00 Tubersol, Aplisol, Ppd ID 12/26/18 10:01 X1 ONE Problem List (Last Reviewed 01/02/18 @ 10:33 by Ara Merritt) Osteoarthritis of right knee (Chronic) Anxiety (Chronic) Muscle spasm (Chronic) Hypertension (Chronic) Allergic rhinitis (Chronic) Sleep apnea (Chronic) Coronary artery disease (Chronic) GERD (gastroesophageal reflux disease) (Chronic) Herpes zoster (Chronic) Carotid stenosis (Chronic) Depression (Chronic) Vital Signs Temp Pulse Resp BP Pulse Ox 99.1 F 80 16 134/81 H 94 12/21/18 15:18 12/21/18 15:18 12/21/18 15:18 12/21/18 15:18 12/21/18 15:18 Oxygen Delivery Method Room Air Weight: 104.014 kg Body Mass Index (BMI) 41.9 Sodium 138 mmol/L (136-145) 12/22/18 05:20 Potassium 4.0 mmol/L (3.5-5.1) 12/22/18 05:20 Chloride 102 mmol/L (98-107) 12/22/18 05:20 Carbon Dioxide 28.0 mmol/L (21.0-32.0) 12/22/18 05:20 Anion Gap 8 (5-15) 12/22/18 05:20 BUN 10 mg/dL (7-18) 12/22/18 05:20 Creatinine 0.56 mg/dL (0.55-1.02) 12/22/18 05:20 Est GFR (MDRD) Af Amer 144 mL/min (>60) 12/22/18 05:20 Est GFR (MDRD) Non-Af 119 mL/min (>60) 12/22/18 05:20 BUN/Creatinine Ratio 18.0 RATIO (10-20) 12/22/18 05:20 Glucose 127 mg/dL (74-106) H 12/22/18 05:20 Assessment/Plan: Psychotropic Medications: Unnecessary Medications: Bowel Regimen: - Provider Comments Provider responsibility: Provider responsible to enter orders to implement recommendations Provider Comments to Recommendations by Pharmacy: Agree
[2018-12-22 16:00] VITALS: BP 132/74; PULSE 89; RESP 16; TEMP 36.7; O2SAT 94
[2018-12-22] MEDS: traMADol 50 MG Tablet PO (18:26)
[2018-12-22] MEDS: oxyCODONE 5 MG Tablet PO (20:19)
[2018-12-22] MEDS: MELATONIN 10 MG TABLET 5 MG PO (20:21)
[2018-12-22] MEDS: amLODIPine 5 MG Tablet PO (20:22)
[2018-12-22] MEDS: Pantoprazole Sodium 40 MG Tablet PO (20:22)
[2018-12-22] MEDS: Ondansetron ODT 4 MG Tablet PO (20:24)
[2018-12-22 20:25] VITALS: PULSE 89; O2SAT 99
[2018-12-23] MEDS: Enoxaparin 40 MG/0.4 ML Syringe SC (06:08)
[2018-12-23] MEDS: Levothyroxine 75 MCG Tablet PO (06:08)
--- NOTE | 2018-12-23 06:10 | NURSING ---
[place] drsg removed at this time. 23 timmy intact to incision, angel. No drng noted.
[2018-12-23] MEDS: Multivitamins,Therapeutic Tablet 1 TABLET PO (09:00)
[2018-12-23] MEDS: traMADol 50 MG Tablet PO ×2 (09:03→14:17)
--- NOTE | 2018-12-23 10:35 | CASEMGMT ---
Plan of care meeting held with pt and daughter present. PT is participating in PT and OT and progressing well. PT does have flight of stairs to enter home and is working on stair training with therapy. No d/c date is set at this time. Upon d/c pt will be returning to her home alone. Her daughter lives next door and can provide some assistance but does work during the day. Pt would prefer [facility] PT/OT at time of d/c. Will continue with treatment plan at this time. BRENDA Mccloud
[2018-12-23 16:00] VITALS: BP 132/69; PULSE 88; RESP 16; TEMP 36.8; O2SAT 95
[2018-12-23] MEDS: Pantoprazole Sodium 40 MG Tablet PO (20:07)
[2018-12-23] MEDS: amLODIPine 5 MG Tablet PO (20:07)
[2018-12-23] MEDS: MELATONIN 10 MG TABLET 5 MG PO (20:07)
[2018-12-23] MEDS: LORazepam 1 MG Tablet PO (23:14)
[2018-12-23] MEDS: Acetaminophen 500 MG Tablet 1000 MG PO (23:14)
[2018-12-24] MEDS: Enoxaparin 40 MG/0.4 ML Syringe SC (06:45)
[2018-12-24] MEDS: Levothyroxine 75 MCG Tablet PO (06:45)
[2018-12-24] MEDS: Multivitamins,Therapeutic Tablet 1 TABLET PO (08:35)
[2018-12-24] MEDS: Acetaminophen 500 MG Tablet 1000 MG PO ×2 (11:41→20:29)
[2018-12-24] MEDS: traMADol 50 MG Tablet PO ×2 (12:39→20:29)
--- NOTE | 2018-12-24 14:48 | MDS.RN ---
Pain interview for brigette 12/25/18 completed.
[2018-12-24 15:21] VITALS: BP 147/71; PULSE 80; RESP 16; TEMP 36.9; O2SAT 94
[2018-12-24] MEDS: amLODIPine 5 MG Tablet PO (20:30)
[2018-12-24] MEDS: MELATONIN 10 MG TABLET 5 MG PO (20:30)
[2018-12-24] MEDS: Pantoprazole Sodium 40 MG Tablet PO (20:30)
[2018-12-25] MEDS: Enoxaparin 40 MG/0.4 ML Syringe SC (06:44)
[2018-12-25] MEDS: Levothyroxine 75 MCG Tablet PO (06:44)
[2018-12-25] MEDS: Multivitamins,Therapeutic Tablet 1 TABLET PO (08:52)
[2018-12-25] MEDS: Acetaminophen 500 MG Tablet 1000 MG PO (10:41)
--- NOTE | 2018-12-25 15:44 | CASEMGMT ---
Insurance: Received fax from insurance that update due today. Clinical update faxed. Auth# [id number] BRENDA Mccloud
[2018-12-25 16:00] VITALS: BP 126/90; PULSE 88; RESP 16; TEMP 37; O2SAT 96
[2018-12-25] MEDS: traMADol 50 MG Tablet PO ×2 (17:41→21:57)
[2018-12-25] MEDS: amLODIPine 5 MG Tablet PO (21:25)
[2018-12-25] MEDS: Pantoprazole Sodium 40 MG Tablet PO (21:25)
[2018-12-25] MEDS: MELATONIN 10 MG TABLET 5 MG PO (21:25)
[2018-12-25] MEDS: Ondansetron ODT 4 MG Tablet PO (21:30)
[2018-12-26] MEDS: Enoxaparin 40 MG/0.4 ML Syringe SC (06:39)
[2018-12-26] MEDS: Levothyroxine 75 MCG Tablet PO (06:39)
[2018-12-26 07:29] LABS: Absolute Lymphocyte Count 1.84 X10^3/ul (0.83-4.51); Basophil# 0.03 X10^3/uL; Basophil% 0.4 % (0-1); Eosinophil# 0.48 X10^3/uL; Hematocrit 39.5 % (37-47); Hemoglobin 12.9 g/dl (12.0-15.0); Lymphocyte # 1.84 X10^3/ul (4.0); Lymphocyte % 22.9 % (19-41); Mean Corp Hgb Conc 32.7 g/gl (32-36); Mean Corpuscular Hgb 28.5 pg (27.0-32.0); Mean Corpuscular Volume 87.4 fL (81-99); Mean Platelet Vol. 8.4 fl (6.2-12.0); Monocyte# 0.64 X10^3/uL; Neutrophil # 5.03 X10^3/uL (2.7-7.7); Neutrophil % 62.5 % (47-70); Platelet Count 306 K/mm3 (150-450); RBC Distribution Width CV 13.8 % (11.6-14.6); RBC Distribution Width SD 43.5 fl (35.1-43.9); Red Blood Count 4.52 M/mm3 (4.2-5.4)
[2018-12-26 07:30] LABS: POSITIVE COUNT NO; POSITIVE DIFFERENTIAL NO; POSITIVE MORPHOLOGY NO
[2018-12-26 07:35] LABS: Anion Gap 9 (5-15); BUN 11 mg/dL (7-18); BUN/Creat Ratio 19.3 RATIO (10-20); Calcium,Total 8.3 mg/dL (8.5-10.1); Chloride 103 mmol/L (98-107); Creatinine, Serum 0.57 mg/dL (0.55-1.02); EST Glomerular Filtration Rate 116 mL/min (>60); Est Glom Filt Rate - Afr Amer 140 mL/min (>60); Estimated Creatinine Clearance 84.05 ml/min; Glucose 120 mg/dL (74-106); Potassium 3.6 mmol/L (3.5-5.1); Sodium Level 140 mmol/L (136-145)
[2018-12-26] MEDS: Multivitamins,Therapeutic Tablet 1 TABLET PO (08:51)
[2018-12-26] MEDS: traMADol 50 MG Tablet PO ×2 (12:21→20:42)
[2018-12-26] MEDS: Tuberculin,Purif.prot.deriv. 50 TU/ML Vial 5 ML ID (12:21)
[2018-12-26 17:00] VITALS: BP 149/78; PULSE 85; RESP 18; TEMP 37.1; O2SAT 97
[2018-12-26] MEDS: MELATONIN 10 MG TABLET 5 MG PO (20:45)
[2018-12-26] MEDS: amLODIPine 5 MG Tablet PO (20:45)
[2018-12-26] MEDS: Pantoprazole Sodium 40 MG Tablet PO (20:45)
[2018-12-27] MEDS: Levothyroxine 75 MCG Tablet PO (06:31)
[2018-12-27] MEDS: Enoxaparin 40 MG/0.4 ML Syringe SC (06:31)
[2018-12-27] MEDS: Multivitamins,Therapeutic Tablet 1 TABLET PO (08:13)
[2018-12-27 14:20] VITALS: BP 155/83; PULSE 85; RESP 16; TEMP 37.2; O2SAT 97
[2018-12-27] MEDS: Acetaminophen 500 MG Tablet 1000 MG PO (16:19)
[2018-12-27] MEDS: Pantoprazole Sodium 40 MG Tablet PO (20:17)
[2018-12-27] MEDS: MELATONIN 10 MG TABLET 5 MG PO (20:17)
[2018-12-27] MEDS: traMADol 50 MG Tablet PO (20:17)
[2018-12-27] MEDS: amLODIPine 5 MG Tablet PO (20:17)
[2018-12-28] MEDS: Levothyroxine 75 MCG Tablet PO (05:41)
[2018-12-28] MEDS: Enoxaparin 40 MG/0.4 ML Syringe SC (05:42)
[2018-12-28] MEDS: Ondansetron ODT 4 MG Tablet PO (07:44)
[2018-12-28] MEDS: Acetaminophen 500 MG Tablet 1000 MG PO (07:44)
--- NOTE | 2018-12-28 10:58 | NURSING ---
Per report, left for doctors appt at 0800 this AM. Remains off unit at this time.
--- NOTE | 2018-12-28 11:22 | NURSING ---
Resident reports last BM was 12/27/18. No questions or concerns at this time. Voicing her desires to go home. Will update social media job titles.
--- NOTE | 2018-12-28 12:39 | CASEMGMT ---
Social Work Pt returning from appointment with orthopedic appointment and requesting to return home on this date. SW spoke with team and all are agreeable pt is ready to d/c home today. Pt is able to ambulate with ww and complete 16 steps which she has into her home. Therapy is recommending home health PT/OT and pt is agreeable and would like to use [facility] [place]. Pt has wheeled walker and dgt will obtain other needed DME. Referral made to Ayaka at [facility] [place] for PT/OT. Plan: d/c home alone 12/28/18. Pt dgt to assist as needed. [facility] PT/OT BRENDA Mccloud
--- NOTE | 2018-12-28 13:18 | NURSING ---
Patient returned from appointment with Dr. Kase. [place] for patient to discharge home with outpatient therapy. WBAT, f/u in 4 weeks. [place] removed. Patient wishes to go home today, Dr. eL notified.
--- NOTE | 2018-12-28 13:42 | CASEMGMT ---
Insurance Continued stay approved to 01/01 with update due 01/02. Auth # [id number] BRENDA Mccloud
[2018-12-28 15:42] VITALS: BP 170/87; PULSE 87; RESP 16; TEMP 36.9; O2SAT 98
[2018-12-28] MEDS: traMADol 50 MG Tablet PO (16:15)
[2018-12-28 17:28] VITALS: BP 156/78; PULSE 66; RESP 14; TEMP 36.8; O2SAT 97
--- NOTE | 2018-12-28 17:28 | DCINST_ITS ---
- Discharge Diagnoses Current Active Problems: Current Active and Chronic Problems (Last Reviewed 01/02/18 @ 10:33 by Ara Merritt) Osteoarthritis of right knee (Chronic) Anxiety (Chronic) Muscle spasm (Chronic) Hypertension (Chronic) Allergic rhinitis (Chronic) Sleep apnea (Chronic) Coronary artery disease (Chronic) GERD (gastroesophageal reflux disease) (Chronic) Herpes zoster (Chronic) Carotid stenosis (Chronic) Depression (Chronic) You will use the following diet at home:: No restrictions, Regular Your food should be the consistency of: Regular Your liquids should be the consistency of: Regular/Thin Discharge Activity: Return to Normal Activity, May Shower, Use Walker Weight Bearing Status: Weight bearing as tolerated Call your doctor if you observe: Fever of 101 or Higher, Inability to urinate, Inability to have a bowel movement, Shortness of breath, Chest pain, Uncontrolled pain Allergies/Adverse Reactions: Allergies atenolol Allergy (Verified 01/02/18 10:33) Other neuropathy in my legs butorphanol tartrate [From Stadol] Allergy (Verified 01/02/18 10:33) Anaphylaxis doxycycline Allergy (Verified 01/02/18 10:33) Unknown prochlorperazine edisylate [From Compazine] Allergy (Verified 01/02/18 10:33) Swelling prochlorperazine maleate [From Compazine] Allergy (Verified 01/02/18 10:33) Swelling tetracycline Allergy (Verified 01/02/18 10:33) Unknown Medications to take at Discharge Levothyroxine [Synthroid] 75 mcg PO DAILY 07/09/13 Amlodipine [Norvasc] 5 mg PO QHS 04/26/15 Esomeprazole Mag Trihydrate [Nexium] 40 mg PO QHS 04/28/15 Lorazepam [Ativan] 1 mg PO DAILY PRN PRN 09/25/16 Mometasone Furoate [Nasonex] 2 spray NASAL DAILY PRN 09/25/16 Acetaminophen [Tylenol] 1,000 mg PO Q8H PRN tablet 12/28/18 Cholecalciferol (VIT D3) [Vitamin D3] 1,000 unit PO DAILY tablet 12/28/18 Enoxaparin [Lovenox] 40 mg SC DAILY@0600 #5 syringe 12/28/18 Meclizine HCl [Antivert] 12.5 mg PO TID PRN PRN tablet 12/28/18 Melatonin 5 mg PO QHS tablet 12/28/18 Multivitamins,Therapeutic [Multivitamin] 1 tablet PO DAILYCM tablet 12/28/18 Potassium Chloride [K-Dur] 40 meq PO BIDCM tablet 12/28/18 traMADol [Ultram] 50 mg PO Q4H PRN PRN 7 Days #30 tab 12/28/18 The following prescriptions were given: traMADol [Ultram] 50 mg PO Q4H PRN PRN 7 Days #30 tab PRN Reason: Moderate Pain (4-5/10) Enoxaparin [Lovenox] 40 mg SC DAILY@0600 #5 syringe Primary Care Physician: Brian Del Angel DO [Primary Care Provider] - Please follow up with your Primary Care Physician in: 1 week. Test Results: Test results from this visit will be discussed in further detail at your follow- up appointment, if applicable. Please Follow Up With: Polo Herr MD When: As scheduled. Please Follow Up With: [facility] Physical [facility] Occupational Therapy When: they will call you to set up a time to come to your home Proposed Discharge Date: 12/28/18
--- NOTE | 2018-12-28 17:28 | PCM.DC.SUM ---
Discharge Date and Diagnosis Date of Admission: 12/18/18 Date of Discharge: 12/28/18 - Secondary Discharge Diagnosis Chronic Problems (Last Reviewed 01/02/18 @ 10:33 by Ara Merritt) Osteoarthritis of right knee (Chronic) Anxiety (Chronic) Muscle spasm (Chronic) Hypertension (Chronic) Allergic rhinitis (Chronic) Sleep apnea (Chronic) Coronary artery disease (Chronic) GERD (gastroesophageal reflux disease) (Chronic) Herpes zoster (Chronic) Carotid stenosis (Chronic) Depression (Chronic) Hypothyroidism (Chronic) Hospital Course and Treatment Imaging Results: 12/21/18 10:59 Diet: Cardiac/Low Cholesterol Is pt able to select menu?: Yes Operations: None Procedures: None Summary of Care Provided: The patient is a 58 year old Female with below past medical history hospitalized for right total knee replacement 12/16/[address] Polo Herr, postoperative course uncomplicated, admitted to TCU with debility, here for rehabilitation, strengthening, prior to discharge home with family. Discharge home alone, patient daughter to assist as needed, [facility] for PT/OT. - Physical Exam Vital Signs Temp Pulse Resp BP Pulse Ox 98.4 F 87 16 170/87 H 98 12/28/18 15:42 12/28/18 15:42 12/28/18 15:42 12/28/18 15:42 12/28/18 15:42 Oxygen Delivery Method Room Air Weight: 104.014 kg Body Mass Index (BMI) 41.9 Intake and Output for Last 24 Hours 12/26/18 12/27/18 12/28/18 23:59 23:59 23:59 Intake Total 840 / 840 600 / 600 360 / 360 Balance 840 / 840 600 / 600 360 / 360 Discharge Diet: No Restrictions Discharge Activity: Return to Normal Activity, May Shower, Use Walker Weight Bearing Status: Weight bearing as tolerated Call your doctor if you observe: Fever of 101 or Higher, Inability to urinate, Inability to have a bowel movement, Shortness of breath, Chest pain, Uncontrolled pain Home Medications: Medications to take at Discharge Levothyroxine [Synthroid] 75 mcg PO DAILY 07/09/13 Amlodipine [Norvasc] 5 mg PO QHS 04/26/15 Esomeprazole Mag Trihydrate [Nexium] 40 mg PO QHS 04/28/15 Lorazepam [Ativan] 1 mg PO DAILY PRN PRN 09/25/16 Mometasone Furoate [Nasonex] 2 spray NASAL DAILY PRN 09/25/16 Acetaminophen [Tylenol] 1,000 mg PO Q8H PRN tablet 12/28/18 Cholecalciferol (VIT D3) [Vitamin D3] 1,000 unit PO DAILY tablet 12/28/18 Enoxaparin [Lovenox] 40 mg [place] DAILY@0600 #5 syringe 12/28/18 Meclizine HCl [Antivert] 12.5 mg PO TID PRN PRN tablet 12/28/18 Melatonin 5 mg PO QHS tablet 12/28/18 Multivitamins,Therapeutic [Multivitamin] 1 tablet PO DAILYCM tablet 12/28/18 Potassium Chloride [K-Dur] 40 meq PO BIDCM tablet 12/28/18 traMADol [Ultram] 50 mg PO Q4H PRN PRN 7 Days #30 tab 12/28/18 Following Prescrptions Were Given to Patient: traMADol [Ultram] 50 mg PO Q4H PRN PRN 7 Days #30 tab PRN Reason: Moderate Pain (4-5/10) Enoxaparin [Lovenox] 40 mg SC DAILY@0600 #5 syringe Primary Care Physician: Brian Del Angel DO [Primary Care Provider] - Please follow up with your Primary Care Physician in: 1 week. Please Follow Up With: Polo Herr MD When: As scheduled. Please Follow Up With: [facility] Physical [facility] Occupational Therapy When: they will call you to set up a time to come to your home Disposition: Home with Home Health Minutes spent on discharge:: 35 Patient Condition:: Good Medical Necessity - Tobacco Use Smoking Status: Former smoker Tobacco Use: Non-smoker Meaningful Use Info Meaningful Use Diagnoses (Choose all that apply): None applicable
--- NOTE | 2018-12-28 17:30 | PCM.PN.HH ---
Home Health Note - Plan Overview of reason of hospitalization: The patient is a 58 year old Female with below past medical history hospitalized for right total knee replacement 12/16/[address] Polo Herr, postoperative course uncomplicated, admitted to TCU with debility, here for rehabilitation, strengthening, prior to discharge home with family. Discharge home alone, patient daughter to assist as needed, [facility] for PT/OT. Problems: Patient was seen for (Last Reviewed 01/02/18 @ 10:33 by Ara Merritt) Osteoarthritis of right knee (Chronic) Anxiety (Chronic) Muscle spasm (Chronic) Hypertension (Chronic) Allergic rhinitis (Chronic) Sleep apnea (Chronic) Coronary artery disease (Chronic) GERD (gastroesophageal reflux disease) (Chronic) Herpes zoster (Chronic) Carotid stenosis (Chronic) Depression (Chronic) Complete List of Medical Problems (Last Reviewed 01/02/18 @ 10:33 by Ara Merritt) Osteoarthritis of right knee (Chronic) Anxiety (Chronic) Muscle spasm (Chronic) Hypertension (Chronic) Allergic rhinitis (Chronic) Sleep apnea (Chronic) Coronary artery disease (Chronic) GERD (gastroesophageal reflux disease) (Chronic) Herpes zoster (Chronic) Carotid stenosis (Chronic) Depression (Chronic) Nausea (Acute) Otitis media (Acute) Sinusitis (Acute) Vestibular neuritis (Acute) Hypothyroidism (Chronic) Vertigo (Acute) - Requirements and Reasons Disciplines Needed/Ordered: Physical Therapy Reason for Disciplines: Gait Training, Stair Training, Fall Prevention, Home Safety/Equipment Instruction, Balance and/or Posture Training, Transfer Training Related To: Change in Medical Treatment Plan, Limited/Poor Endurance, Physical Impairments, Unsteady Gait/Balance, Fall Risk Patient is unable to leave the home: Without Aid of Supportive Devices (crutches, cane, wheelchair, walker), Without the assistance of another person - Additional Disciplines Additional Disciplines Needed/Ordered: Occupational Therapy
--- NOTE | 2018-12-29 09:41 | CASEMGMT ---
Insurance left regarding d/c on 12/28/18 home with [facility] PT/OT. Auth# [id number] BRENDA Mccloud
--- NOTE | 2018-12-30 07:52 | MDS.RN ---
Information for the mds was obtained from review of the clinical record, interview of resident, staff, and direct observation of resident's care.
== END 2018-12-28 18:00 | disposition home health service (06) | DRG 560 ==
PROVIDERS: Admitting Provider Family Medicine Geriatric Medicine; Family Provider Family Medicine; PCP Family Medicine; Visit Provider Family Medicine Geriatric Medicine
DX: Z47.1 Aftercare following joint replacement surgery (principal); I51.0 Cardiac septal defect, acquired; Z96.651 Presence of right artificial knee joint; E03.9 Hypothyroidism, unspecified; F32.9 Major depressive disorder, single episode, unspecified; K21.9 Gastro-esophageal reflux disease without esophagitis; G47.30 Sleep apnea, unspecified; I10 Essential (primary) hypertension; F41.9 Anxiety disorder, unspecified; Z87.891 Personal history of nicotine dependence; E55.9 Vitamin D deficiency, unspecified
CPT/HCPCS: 36415; 80048; 85025; 97110; 97116; 97162; 97166; 97530; 97535; 97802

== ENCOUNTER 2019-03-02 10:00 | Outpatient (RCR) | payer OTHER, SELFPAY ==
--- NOTE | 2019-01-29 13:28 | HP.PTEVAL_ITS ---
Patient's Visit Information SUREKHA DOLAN is a 58 year old F referred to Physical Therapy by Polo Herr MD with a diagnosis of UNILATERAL PRIMARY OSTEOARTHRITIS RIGHT KNEE. Date of Evaluation: 01/29/19 Physical Therapist: Solis Mao PT, Cert MDT, OCS - Visit Plan Frequency: 2x /Week Duration: 5WEEKS Plan: PRECAUTION: UNABLE TO LAY FLAT DUE TO VERTIGO ISSUES. PT INTERVENTION ROM,SCAR MASSAGE,PRE'S QUADS/HAMS/HIP.BALANCE PROGRAM,NUSTEP,BIKE,CP - Subjective Findings: This 58 y/o female ppresents to physical therapy with right TKA done by DR Herr at [facility] on December 16 2018. Patient transferred to [facility] TCU on December 18 then d/c to home December 28. Patient had home PT for 4weeks . Patient started to use cane ,seen DR Friday okay to use cane and start driving. C/O parathesia lateral knee. HOME SITUATION: Apartment with 16 steps with rail. Patient able to perform simple ADL'S. Unable to do housework and RTW. Patient condition affects ability to ADLS' and RTW.Ten[employer]ive RTW date March 09. S OCIAL: single. 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 GAIT: ambulates with cane 2 point gait with min loss swing phase. BALANCE: good - with cane. INSCION: well approximate. EDEMA: mild effusion. NEURO: intact. AROM: 0-105 SUPINE KNEE flexion. FLEXABLITY: min tight. MMT: quads/hams 4-/5 ,hip flexion/abd 4/5. STAIRS: one step at time with cane. AROM: 0- - Goals Goal 1:: Independant with Hep Goal Time Frame: 4-6 Weeks Goal 2:: Ambulate with improve swing phase reciprocal pattern at community distance Goal Time Frame: 4-6 Weeks Goal 3:: Asecend/descend 12 steps alteranting with rail. Goal Time Frame: 4-6 Weeks Goal 4:: Patient to increase AROM 0-115 degrees or greater to improve function. Goal Time Frame: 4-6 Weeks Goal 5:: Patient increase strength of quads/hams 4/5 to improve function. Goal Time Frame: 4-6 Weeks Goal 6:: Patient to improve LFES score by 10 points or greater to improve QOL. Goal Time Frame: 4-6 Weeks - Rehabilitation Potential Physical Therapy Diagnosis: This patient had underwent s/p TKA with ROM ,strength,impairs with gait balance and stairs impairs ability to RTW Rehabilitation Potential: Good - Anticipated Interventions Patient/Client Instruction: Educate patient on: Condition, Plan of Care For the Purpose of:: To decrease pain, To increase ROM, To improve muscle performance and motor function, To improve ability to perform ADL's, To increase tolerance to activity/condition/position, To improve ability of physical actions for home/community/work/leisure, To improve health of tissue, To decrease soft tissue restriction, To increase flexibility/ROM, To improve balance, To reduce risk of recurrence, To improve ability to perform tasks related to life management Therapeutic Exercise to Include: Strength training, Balance training, Flexibilty training, Gait and locomotor training, Passive ROM, Active ROM Comment: KNEE /HIP For the Purpose of:: To decrease pain, To increase ROM, To improve muscle performance and motor function, To improve ability to perform ADL's, To increase tolerance to activity/condition/position, To improve ability of physical actions for home/community/work/leisure, To improve health of tissue, To decrease soft tissue restriction, To increase flexibility/ROM, To improve balance, To improve safety with gait, To improve ability to perform tasks related to life management Cryotherapy (ice pack, ice massage): Yes Vasopneumatic device: Yes For the Purpose of:: To decrease swelling/inflammation, To improve health of tissue, To decrease soft tissue restriction Thank you for the opportunity to evaluate your patient. For Medicare and Medicare HMO plans, please review the plan of care and approve it. It will need to be FAXED BACK to us at [phone] for Medicare purposes. For Medicare only, by signing this I certify the plan of care. Please let me know if there are questions or concerns regarding this plan of care. Physician Signature: Date:
--- NOTE | 2019-01-29 13:29 | HP.PTEVAL_ITS ---
Patient's Visit Information SUREKHA DOLAN is a 58 year old F referred to Physical Therapy by Polo Herr MD with a diagnosis of UNILATERAL PRIMARY OSTEOARTHRITIS RIGHT KNEE. Date of Evaluation: 01/29/19 Physical Therapist: Solis Mao PT, Cert MDT, OCS - Visit Plan Frequency: 2x /Week Duration: 5WEEKS Plan: PRECAUTION: UNABLE TO LAY FLAT DUE TO VERTIGO ISSUES. PT INTERVENTION ROM,SCAR MASSAGE,PRE'S QUADS/HAMS/HIP.BALANCE PROGRAM,NUSTEP,BIKE,CP - Subjective Findings: This 58 y/o female ppresents to physical therapy with right TKA done by DR Herr at [facility] on December 16 2018. Patient transferred to [facility] TCU on December 18 then d/c to home December 28. Patient had home PT for 4weeks . Patient started to use cane ,seen DR Friday okay to use cane and start driving. C/O parathesia lateral knee. HOME SITUATION: Apartment with 16 steps with rail. Patient able to perform simple ADL'S. Unable to do housework and RTW. Patient condition affects ability to ADLS' and RTW.Ten[employer] RTW date March 09. S OCIAL: single. 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 - Pain Right Knee Pain Intensity (Out of 10): 3 Pain Intensity Range: 10 - Objective POSTURE: mild foward posture. GAIT: ambulates with cane 2 point gait with min loss swing phase. BALANCE: good - with cane. INSCION: well approximate. EDEMA: mild effusion. NEURO: intact. AROM: 0-105 SUPINE KNEE flexion. FLEXABLITY: min tight. MMT: quads/hams 4-/5 ,hip flexion/abd 4/5. STAIRS: one step at time with cane - Goals Goal 1:: Independant with Hep Goal Time Frame: 4-6 Weeks Goal 2:: Ambulate with improve swing phase reciprocal pattern at community di stance Goal Time Frame: 4-6 Weeks Goal 3:: Asecend/descend 12 steps alteranting with rail. Goal Time Frame: 4-6 Weeks Goal 4:: Patient to increase AROM 0-115 degrees or greater to improve function. Goal Time Frame: 4-6 Weeks Goal 5:: Patient increase strength of quads/hams 4/5 to improve function. Goal Time Frame: 4-6 Weeks Goal 6:: Patient to improve LFES score by 10 points or greater to improve QOL. Goal Time Frame: 4-6 Weeks - Rehabilitation Potential Physical Therapy Diagnosis: This patient had underwent s/p TKA with ROM ,stre ngth,impairs with gait balance and stairs impairs ability to RTW Rehabilitation Potential: Good - Anticipated Interventions Patient/Client Instruction: Educate patient on: Condition, Plan of Care For the Purpose of:: To decrease pain, To increase ROM, To improve muscle performance and motor function, To improve ability to perform ADL's, To increase tolerance to activity/condition/position, To improve ability of physical actions for home/community/work/leisure, To improve health of tissue, To decrease soft tissue restriction, To increase flexibility/ROM, To improve balance, To reduce risk of recurrence, To improve ability to perform tasks related to life management Therapeutic Exercise to Include: Strength training, Balance training, Flexibilty training, Gait and locomotor training, Passive ROM, Active ROM Comment: KNEE /HIP For the Purpose of:: To decrease pain, To increase ROM, To improve muscle performance and motor function, To improve ability to perform ADL's, To increase tolerance to activity/condition/position, To improve ability of physical actions for home/community/work/leisure, To improve health of tissue, To decrease soft tissue restriction, To increase flexibility/ROM, To improve balance, To improve safety with gait, To improve ability to perform tasks related to life management Cryotherapy (ice pack, ice massage): Yes Vasopneumatic device: Yes For the Purpose of:: To decrease swelling/inflammation, To improve health of tissue, To decrease soft tissue restriction Thank you for the opportunity to evaluate your patient. For Medicare and Medicare HMO plans, please review the plan of care and approve it. It will need to be FAXED BACK to us at [phone] for Medicare purposes. For Medicare only, by signing this I certify the plan of care. Please let me know if there are questions or concerns regarding this plan of care. Physician Signature: Date:
--- NOTE | 2019-03-02 11:16 | HP.PTDCSUM ---
HP - PT D/C Summary It has been my pleasure to treat SUREKHA DOLAN under orders from Polo Herr MD, for the diagnosis of UNILATERAL PRIMARY OSTEOARTHRITIS RIGHT KNEE for a total of 10 visit(s). Discharge Date: Please see the following information for a summary of their discharge status. - Subjective Subjective: Doing well ..walking without cane. Able to ascend/descend sterps. RTW 03/10 - Pain Right Knee Pain Intensity (Out of 10): 0 - Objective Objective/Function: POSTURE: WFL. GAIT: RECPROCAL PATTERN. BALANCE: NORMAL. MMT: QUADS/HAMS 4/5. STAIRS: ALTERANTING STEP AT TIME WITH RAIL. AROM: 3-110 SUPINE KNEE FLEXION - Goals Goal 1:: Independant with Hep Goal 2:: Ambulate with improve swing phase reciprocal pattern at community distance Goal 3:: Asecend/descend 12 steps alteranting with rail. Goal 4:: Patient to increase AROM 0-115 degrees or greater to improve function. Goal 5:: Patient increase strength of quads/hams 4/5 to improve function. Goal 6:: Patient to improve LFES score by 10 points or greater to improve QOL. - Plan Plan: D/C TO HEP - D/C Information If there are questions or concerns regarding this patient's physical therapy, please feel free to call me at [phone]. Thank you for the referral of this patient. Sincerely, Solis Mao, PT, Cert MDT, OCS
--- NOTE | 2019-03-02 11:17 | HP.PTDCSUM ---
HP - PT D/C Summary It has been my pleasure to treat SUREKHA DOLAN under orders from Polo Herr MD, for the diagnosis of UNILATERAL PRIMARY OSTEOARTHRITIS RIGHT KNEE for a total of 10 visit(s). Discharge Date: Please see the following information for a summary of their discharge status. - Subjective Subjective: Doing well ..walking without cane. Able to ascend/descend sterps. RTW 03/10 - Pain Right Knee Pain Intensity (Out of 10): 0 - Overall Improvement % Improvement: 100 - Objective Objective/Function: POSTURE: WFL. GAIT: RECPROCAL PATTERN. BALANCE: NORMAL. MMT: QUADS/HAMS 4/5. STAIRS: ALTERANTING STEP AT TIME WITH RAIL. AROM: 3-110 SUPINE KNEE FLEXION - Goals Goal 1:: Independant with Hep Goal 2:: Ambulate with improve swing phase reciprocal pattern at community distance Goal 3:: Asecend/descend 12 steps alteranting with rail. Goal 4:: Patient to increase AROM 0-115 degrees or greater to improve function. Goal 5:: Patient increase strength of quads/hams 4/5 to improve function. Goal 6:: Patient to improve LFES score by 10 points or greater to improve QOL. - Plan Plan: D/C TO HEP - D/C Information If there are questions or concerns regarding this patient's physical therapy, please feel free to call me at [phone]. Thank you for the referral of this patient. Sincerely, Solis Mao, PT, Cert MDT, OCS
== END 2019-03-02 19:00 | disposition home or self-care (01) ==
LOC: PT 10:00
PROVIDERS: Family Provider Family Medicine; PCP Family Medicine; Referring Provider Orthopaedic Surgery; Visit Provider Orthopaedic Surgery
DX: M17.11 Unilateral primary osteoarthritis, right knee (principal)
CPT/HCPCS: 97110; 97162

== ENCOUNTER → 2019-04-28 14:25 | Outpatient (CLI) | payer OTHER, SELFPAY ==
[2019-04-28 14:45] LABS: Bacteria 0 SEEN /hpf (None Seen)
[2019-04-28 15:51] LABS: Color, Urine Yellow (Yellow); Glucose, Dipstick Normal (Normal); Ketone-Dipstick Negative (Negative); Leukocyte Esterase-Dipstick 100 /ul (Negative); Nitrite-Dipstick Negative (Negative); Occult Blood-Urine 25 /ul (Negative); Protein-Dipstick 15 mg/dl (Negative); Specific Gravity, Urine 1.015 (1.002-1.030); Urine Bilirubin Dipstick Negative (Negative); Urine Clarity Clear (Clear); Urine Urobilinogen Normal (Normal)
[2019-04-28 16:04] LABS: Mucous, Urine 1+ /hpf (<or=2+); Red Blood Cells-Urine 0-5 SEEN /hpf (0-5); Squamous Epithelial Cells - UA 0-5 SEEN /hpf (5-10); Transitional Epithelial - Ur 0 SEEN /hpf (0-5); White Blood Cells 0-5 SEEN /hpf (0-5)
== END ==
LOC: LAB.FUTURE 14:28 → BFHLAB 09-24 10:13
PROVIDERS: Family Provider Family Medicine; PCP Family Medicine; Referring Provider Family Medicine; Visit Provider Family Medicine
DX: R35.0 Frequency of micturition (principal); R30.0 Dysuria
CPT/HCPCS: 81001

== ENCOUNTER → 2019-06-16 13:06 | Outpatient (CLI) | payer OTHER, SELFPAY ==
--- NOTE | 2019-06-16 13:09 | BI_ITS ---
MAMMOGRAPHY - BILATERAL SCREENING REASON FOR EXAM: Female, 58 years old. Routine annual screening examination. PERTINENT HISTORY: Grandmother with breast cancer. Excisional right breast biopsy. Prior bilateral breast reduction surgery. TECHNIQUE: Digital bilateral breast yusef (3D mammographic acquisition) in the CC and MLO projections. 2-D mediolateral oblique (MLO) and craniocaudad (CC) views of both breasts were obtained. CAD: Full Field Digital Mammography with Computer Added Detection was performed. COMPARISON: Comparison is made with prior study June 04, 2017 and February 21, 2016. FINDINGS: Breast Composition: There are scattered areas of fibroglandular density. There are no dominant masses or suspicious calcifications. Stable 6.5 mm well-defined nodule in the inferior medial aspect of the left breast. Stable benign-appearing bilateral axillary lymph nodes. No other significant abnormalities are identified. There has been no significant change since the prior study. BI/SCREEN MAMM (CAD) W/YUSEF BILAT IMPRESSION: Stable bilateral screening mammogram. Yearly follow-up mammogram recommended. (A) ASSESSMENT CATEGORY: BIRADS Category 2: Benign. A letter regarding these results will be sent to the patient by the facility within 30 days. Approximately 10% of breast cancers are not detected by mammography. A normal mammogram should not delay biopsy of a clinically suspicious abnormality. [id number] Electronically Signed: Daniel Torres, at 14:35 EDT , Service support ,
== END ==
PROVIDERS: Family Provider Family Medicine; PCP Family Medicine; Referring Provider Family Medicine; Visit Provider Family Medicine
DX: Z12.31 Encounter for screening mammogram for malignant neoplasm of breast (principal)
CPT/HCPCS: 77063; 77067

== ENCOUNTER → 2019-06-23 05:58 | Outpatient (CLI) | payer OTHER, SELFPAY ==
[2019-06-23 08:49] LABS: Hemoglobin A1c 6.5 % (4.2-6.3)
[2019-06-25 12:07] LABS: CHOLESTEROL TOTAL 209 mg/dL (100-199); HDL-C 34 mg/dL (>39); HDL-P TOTAL 29.9 umol/L (>=30.5); SMALL LDL-P 1848 nmol/L (<=527); TRIGLYCERIDES 240 mg/dL (0-149)
[2019-06-25 12:42] LABS: INSULIN RESISTANCE SCORE 82 (<=45); LDL SIZE 19.8 nm (>20.5); LDL-C 127 mg/dL (0-99); LDL-P 2312 nmol/L (<1000)
== END ==
LOC: LAB.FUTURE 05:59 → LAB 06:06
PROVIDERS: Family Provider Family Medicine; PCP Family Medicine; Referring Provider Family Medicine; Visit Provider Family Medicine
DX: E78.5 Hyperlipidemia, unspecified (principal); R73.03 Prediabetes
CPT/HCPCS: 36415; 80061; 83036; 83704

== ENCOUNTER → 2019-09-28 06:45 | Outpatient (CLI) | payer OTHER, SELFPAY ==
[2019-09-28 08:13] LABS: Hemoglobin A1c 6.7 % (4.2-6.3)
[2019-09-30 12:07] LABS: CHOLESTEROL TOTAL 219 mg/dL (100-199); HDL-C 35 mg/dL (>39); HDL-P TOTAL 34.2 umol/L (>=30.5); SMALL LDL-P 1290 nmol/L (<=527); TRIGLYCERIDES 286 mg/dL (0-149)
[2019-09-30 14:36] LABS: INSULIN RESISTANCE SCORE 91 (<=45); LDL SIZE 20.2 nm (>20.5); LDL-C 127 mg/dL (0-99); LDL-P 2104 nmol/L (<1000)
== END ==
LOC: LAB.FUTURE 06:47 → BFHLAB 10-11 08:03
PROVIDERS: PCP Family Medicine; Referring Provider Family Medicine; Visit Provider Family Medicine
DX: E11.9 Type 2 diabetes mellitus without complications (principal); E78.5 Hyperlipidemia, unspecified
CPT/HCPCS: 36415; 80061; 83036; 83704

== ENCOUNTER 2019-12-03 10:30 | Outpatient (RCR) | payer OTHER, SELFPAY ==
--- NOTE | 2019-09-23 16:48 | HP.PTEVAL_ITS ---
Patient's Visit Information SUREKHA DOLAN is a 58 year old F referred to Physical Therapy by Gin Sutherland with a diagnosis of PLANTAR FASCIA FIBROMATOSIS. Date of Evaluation: 09/23/19 Physical Therapist: Solis Mao PT, Cert MDT, OCS - Visit Plan Frequency: 1VISIT Plan: SEE ONE VISIT AND PROVIDE ORTHOTICS AND ENSUREPROPER FITTING - Subjective Findings: This 58 y/o female presents to hysical therapy with plantarfascitis. Pateint has had plantarfascia pain since March . Patient had pain planter aspect of foot . Worse with walking and standing affecting ADLS'. Denies parathesia/tinglng. Patient seen DR recommended fabricated orthotics. Patient pain affects QOL and function with job demands. VOCATION: [employer]. SOCIAL: - Pain Bilateral Foot Pain Intensity (Out of 10): 2 Pain Intensity Range: 10 - Objective POSTURE: mild pes planus. PALPATION: tender palapation planterfascia. NEURO: intact. ANKLE AROM: dorsiflexion 5 degrees,inversion 45,eversion 10 degrees,planterflexion 65 degrees,. MMT: ankle dorsiflexion 4/5,eversion/inversion 4/5. GAIT: reciprocal pattern - Goals Goal 1:: PROVIDE FABRIACTED ORTHOTICS AND FIT TO ESURE PROPER FITTING. - Rehabilitation Potential Physical Therapy Diagnosis: This poatient has plantarfascitis pain will benifit from orthotiocs Rehabilitation Potential: Good - Anticipated Interventions Patient/Client Instruction: Educate patient on: Condition, Plan of Care For the Purpose of:: To decrease pain, Other Other: PROVIDE ORTHOTICS Thank you for the opportunity to evaluate your patient. For Medicare and Medicare HMO plans, please review the plan of care and approve it. It will need to be FAXED BACK to us at [phone] for Medicare purposes. For Medicare only, by signing this I certify the plan of care. Please let me know if there are questions or concerns regarding this plan of care. Physician Signature: Date:
--- NOTE | 2019-12-03 10:55 | HP.PTDCSUM ---
It has been my pleasure to treat SUREKHA DOLAN referred by Gin Sutherland, with the diagnosis of PLANTAR FASCIA FIBROMATOSIS for a total of 2 visit(s). Discharge Date: 12/03/19 Please see the following information for a summary of their discharge status. Subjective: SAME SORENSS Bilateral Foot Pain Intensity (Out of 10): 2 Objective/Function: PROVIDED ORTHOTICS TO ENSURE PROPER FITTING Goal 1:: PROVIDE FABRIACTED ORTHOTICS AND FIT TO ESURE PROPER FITTING. Goal Progress: Goal Met Plan: D/C If there are questions or concerns regarding this patient's physical therapy, please feel free to call me at [phone]. Thank you for the referral of this patient. Sincerely, Solis Mao, PT, Cert MDT, OCS
== END 2019-12-03 19:00 | disposition home or self-care (01) ==
LOC: PT 10:30
PROVIDERS: PCP Family Medicine; Visit Provider Podiatrist
DX: M72.2 Plantar fascial fibromatosis (principal)
CPT/HCPCS: 97162; 97530; 97760

== ENCOUNTER → 2020-01-15 08:40 | Outpatient (CLI) | payer OTHER, SELFPAY ==
[2020-01-15 09:22] LABS: Hemoglobin A1c 5.8 % (3.8-5.6)
[2020-01-18 12:07] LABS: CHOLESTEROL TOTAL 228 mg/dL (100-199); HDL-C 38 mg/dL (>39); HDL-P TOTAL 30.4 umol/L (>=30.5); SMALL LDL-P 1465 nmol/L (<=527); TRIGLYCERIDES 260 mg/dL (0-149)
[2020-01-18 15:40] LABS: INSULIN RESISTANCE SCORE 92 (<=45); LDL SIZE 20.2 nm (>20.5); LDL-C 138 mg/dL (0-99); LDL-P 2289 nmol/L (<1000)
== END ==
PROVIDERS: PCP Family Medicine; Referring Provider Family Medicine; Visit Provider Family Medicine
DX: E11.9 Type 2 diabetes mellitus without complications (principal); E78.5 Hyperlipidemia, unspecified
CPT/HCPCS: 36415; 80061; 83036; 83704

== ENCOUNTER → 2020-04-06 09:38 | Outpatient (CLI) | payer OTHER, SELFPAY ==
--- NOTE | 2020-04-06 09:53 | RAD_ITS ---
STUDY: X-RAY - RIGHT FOOT CLINICAL: Female, 59 years old. Pain, calcaneous spur check pain into achilles TECHNIQUE: 3 view(s) of the foot. COMPARISON: None. FINDINGS: There is an enthesophyte involving the posterior superior calcaneus at the site of insertion of the Achilles tendon. Calcaneal spur. Normal visualized subtalar, talonavicular, calcaneocuboid, tarsal and tarsometatarsal articulations. Normal metatarsi. Normal metatarsophalangeal joint of the great toe. Normal tibial and fibular sesamoid bones. Normal interphalangeal joint of the great toe. Normal phalanges of the great toe. Normal second through fifth metatarsophalangeal joints. Normal interphalangeal joints and phalanges of the lesser toes. The soft tissue structures are unremarkable. RAD/Foot min 3 Views IMPRESSION: Calcaneal spurs. Electronically Signed: Daniel Torres, at 10:10 EDT , Service support ,
== END ==
PROVIDERS: PCP Family Medicine; Referring Provider Podiatrist; Visit Provider Podiatrist
DX: M77.31 Calcaneal spur, right foot (principal)
CPT/HCPCS: 73630

== ENCOUNTER → 2020-04-25 07:40 | Outpatient (CLI) | payer OTHER, SELFPAY ==
[2020-04-25 09:15] LABS: AST(SGOT) 14 U/L (15-37); Alanine Aminotransfer ALT/SGPT 18 U/L (13-61); Albumin, Serum 3.7 g/dL (3.2-5.0); Alkaline Phosphatase 98 U/L (45-117); Anion Gap 8 (5-15); BUN 9 mg/dL (7-18); BUN/Creat Ratio 14.2 RATIO (10-20); Calcium,Total 8.7 mg/dL (8.5-10.1); Chloride 102 mmol/L (98-107); Creatinine, Serum 0.63 mg/dL (0.55-1.30); EST Glomerular Filtration Rate 102 mL/min (>60); Est Glom Filt Rate - Afr Amer 123 mL/min (>60); Globulin 3.7 g/dL (2.2-4.2); Glucose 103 mg/dL (74-106); Potassium 3.6 mmol/L (3.5-5.1); Protein, Total 7.4 g/dL (6.4-8.2); Sodium Level 138 mmol/L (136-145); T4 Free Direct 1.17 ng/dL (0.76-1.46)
[2020-04-25 09:18] LABS: Hemoglobin A1c 6.1 % (3.8-5.6)
== END ==
PROVIDERS: PCP Family Medicine; Referring Provider Family Medicine; Visit Provider Family Medicine
DX: E11.9 Type 2 diabetes mellitus without complications (principal); I10 Essential (primary) hypertension; E78.5 Hyperlipidemia, unspecified; E03.9 Hypothyroidism, unspecified
CPT/HCPCS: 36415; 80053; 80061; 83036; 83704; 84439; 84443

== ENCOUNTER 2020-08-05 11:00 | Outpatient (RCR) | payer OTHER, SELFPAY | END 2020-08-05 19:00 | disposition home or self-care (01) | LOC: MASS 11:00 | PROVIDERS: PCP Family Medicine; Referring Provider Family Medicine; Visit Provider Family Medicine | DX: M19.90 Unspecified osteoarthritis, unspecified site (principal); M54.2 Cervicalgia | CPT/HCPCS: 97124 ==

== ENCOUNTER → 2020-08-11 09:13 | Outpatient (CLI) | payer OTHER, SELFPAY | PROVIDERS: PCP Family Medicine; Referring Provider Family Medicine; Visit Provider Family Medicine | DX: R00.2 Palpitations (principal) | CPT/HCPCS: 93225; 93226 ==

== ENCOUNTER → 2020-09-13 10:40 | Outpatient (CLI) | payer OTHER, SELFPAY ==
--- NOTE | 2020-09-13 10:42 | BI_ITS ---
MAMMOGRAPHY - BILATERAL SCREENING REASON FOR EXAM: Female, 59 years old. Routine annual screening examination. PERTINENT HISTORY: Grandmother with breast cancer. Remote right excisional breast biopsy and bilateral breast reduction surgery. TECHNIQUE: Digital bilateral breast yusef (3D mammographic acquisition) in the CC and MLO projections. 2-D mediolateral oblique (MLO) and craniocaudad (CC) views of both breasts were obtained. CAD: Full Field Digital Mammography with Computer Added Detection was performed. COMPARISON: Comparison is made with prior study 06/16/2019 and 06/04/2017. FINDINGS: Breast Composition: There are scattered areas of fibroglandular density. There are no dominant masses or suspicious calcifications. There is an 8.5 mm x 1 cm nodular density in the slightly upper deep lateral portion of the left breast. Correlation with ultrasound is recommended. Stable 6.5 mm well-defined nodule in the inferior medial aspect of the left breast. Stable benign-appearing bilateral axillary lymph nodes. No other significant abnormalities are identified. BI/SCRN MAMM (CAD)W/YUSEF BILAT IMPRESSION: 8.5 mm x 1 cm nodular density in the slightly upper deep lateral portion left breast. Correlation with ultrasound is recommended. ASSESSMENT CATEGORY: BIRADS Category 0: Incomplete. Need additional imaging evaluation. A letter regarding these results will be sent to the patient by the facility within 30 days. Approximately 10% of breast cancers are not detected by mammography. A normal mammogram should not delay biopsy of a clinically suspicious abnormality. [id number] Electronically Signed: Daniel Torres MD at 12:13 EST , Service support ,
== END ==
PROVIDERS: PCP Family Medicine; Referring Provider Family Medicine; Visit Provider Family Medicine
DX: Z12.31 Encounter for screening mammogram for malignant neoplasm of breast (principal)
CPT/HCPCS: 77063; 77067

== ENCOUNTER → 2020-09-14 10:20 | Outpatient (CLI) | payer OTHER, SELFPAY ==
--- NOTE | 2020-09-14 10:23 | US_ITS ---
STUDY: ULTRASOUND BREAST - LEFT REASON FOR EXAM: Female, 59 years old. Abnormal screening mammogram. TECHNIQUE: Axial and longitudinal images of the LEFT breast were performed with a high resolution ultrasound transducer. # OF IMAGES: 60 COMPARISON: Comparison is made with prior mammogram dated 09/13/2020. FINDINGS: LEFT Breast: The mammographic abnormality corresponds to 9 mm x 9 mm x 9 mm well-defined hypoechoic nodule with a central fatty hilum. This is at the 1 o''clock position of the breast is 6 cm from nipple. This represents a benign-appearing lymph node. US/Breast Limited Unilateral IMPRESSION: The mammographic abnormality corresponds to a 9 mm x 9 mm x 9 mm benign appearing lymph node. ASSESSMENT CATEGORY: BIRADS Category 2: Benign. A letter regarding these results will be sent to the patient by the facility within 30 days. Electronically Signed: Daniel Torres MD at 11:57 EST , Service support ,
== END ==
PROVIDERS: PCP Family Medicine; Referring Provider Family Medicine; Visit Provider Family Medicine
DX: R92.8 Other abnormal and inconclusive findings on diagnostic imaging of breast (principal)
CPT/HCPCS: 76642

== ENCOUNTER → 2021-03-05 | Outpatient (CLI) | payer OTHER, SELFPAY ==
[2021-03-05 14:57] VITALS: BMI 41.9
[2021-03-09 08:18] LABS: HPV APTIMA, High Risk Negative (Negative)
== END | disposition home or self-care (01) ==
LOC: LABSPEC 17:12
PROVIDERS: PCP Family Medicine; Referring Provider Obstetrics & Gynecology; Visit Provider Obstetrics & Gynecology
DX: Z12.4 Encounter for screening for malignant neoplasm of cervix (principal)
CPT/HCPCS: 87624; 88175; G0145

== ENCOUNTER → 2021-04-11 09:30 | Outpatient (CLI) | payer OTHER, SELFPAY ==
[2021-03-05 14:57] VITALS: BMI 41.9
--- NOTE | 2021-04-11 09:37 | MRI_ITS ---
STUDY: MRI LUMBAR SPINE WITH AND WITHOUT CONTRAST REASON FOR EXAM: Female, 60 years old. SCIATICA PAIN WITH 2 PREV LAMINECTOMIES TECHNIQUE: Standardized fat and water weighted pulse sequences were obtained in the sagittal and axial planes. IV dotarem 20ml was administered for the contrast portion of the examination. COMPARISON: 07/26/2015 FINDINGS: T12-L1: Normal endplates. Normal disc height, hydration and morphology. Normal bilateral facet joints. Normal central canal and bilateral lateral recesses. Normal bilateral intervertebral neural foramina. Normal lumbar lordosis. There is no substantial scoliosis. Normal conus medullaris that terminates at the L1. L1-2: Normal endplates. Normal disc height, hydration and morphology. Normal bilateral facet joints. Normal central canal and bilateral lateral recesses. Normal bilateral intervertebral neural foramina. L2-3: Interval left laminectomy. Recurrent mild bilobed disc protrusion asymmetric to the left produces mild spinal stenosis with mild bilateral lateral recess stenosis with abutment of the L3 nerve roots bilaterally and moderate bilateral neural foraminal stenosis with abutment of the exiting L2 nerve roots bilaterally. L3-4: Interval left laminectomy. Moderate bilateral facet hypertrophy and ligament flavum hypertrophy. Mild bilobed disc protrusion produces mild spinal stenosis with mild bilateral lateral recess stenosis and mild bilateral neural foraminal stenosis. L4-5: Moderate bilateral facet hypertrophy and ligament flavum hypertrophy. No change in the mild broad disc protrusion which produces mild spinal stenosis with mild bilateral lateral recess stenosis and mild bilateral neural foraminal stenosis. L5-S1: Mild bilateral facet hypertrophy and ligament flavum hypertrophy. No change in the mild broad disc protrusion which produces mild spinal stenosis and mild bilateral neural foraminal stenosis. Normal visualized sacral ala. Normal visualized paraspinous soft tissue structures. There is no demonstrated abnormal enhancement. MRI/Spine Lumbar W/WO Contrast IMPRESSION: Postsurgical changes with degenerative disc disease as described above. Electronically Signed: Jona Reyna MD at 11:53 EDT Tel , Service support ,
== END ==
PROVIDERS: PCP Family Medicine; Referring Provider Family Medicine; Visit Provider Family Medicine
DX: M54.9 Dorsalgia, unspecified (principal); M54.30 Sciatica, unspecified side
CPT/HCPCS: 72158; A9575

== ENCOUNTER 2021-05-23 16:00 | Outpatient (RCR) | payer OTHER, SELFPAY ==
--- NOTE | 2021-04-19 16:42 | HP.PTEVAL_ITS ---
Patient's Visit Information SUREKHA DOLAN is a 60 year old F referred to Physical Therapy by MADISON Lorenz with a diagnosis of Lumbar stenosis. Date of Evaluation: 04/19/21 Physical Therapist: Bk Phelps DPT, OCS, CSCS - Visit Plan Frequency: 2-3x /Week Duration: 4-6 Weeks Plan: 2-3x/week for 3-4 weeks for: AT to address core and LE strength, ITB and quad stretching, progress to EHP. - Subjective Had a couple back surgeries and thought sciatica flared up and saw Bean. Saw Dr. Sheppard seeking epidural. Had MRI and stenosis is worse than it was , needs L MAYCO. Leaving for [place] in 10 months. Shooting for mid May hip replacement. Saw Dr. Herr on Friday and does not need a hip replacement. Wants therapy and Celebrex. Most of pain was posterior L leg and could hradly walk, that has gotten better. Takes naproxen and elevates leg. Uses some cream which seems to help. 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 Sitting made her worse. Currently hips still hurts and is tender. No back pin today. LB aches at times. Down L leg to knee. No numbness. 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 Has 18 steps to apartment and needs to rest when gets home. Sleep is not great as pain is worse at night, hip uncomfortable. Basic ADLs are getting done. No hobbies. No regular exercises - Pain LB and left leg Pain Intensity (Out of 10): 5 Pain Intensity Range: 0, 7 - Objective L antalgia and turns L pelvis BW to avoid ext at hip. Transfers I with UE. Steps prefers R but able reciprocal with railings. LB AROM ext mod limited, flexion mod limited, SB mod limited, stretchy flexion and slight discomfort ext. LE AROM WFL, no obviosu asymmetries at hips about 45 ext rotation, 15 IR, 110 flexion without excessive pain. 5 ext. Wekness apparent trunk 3+, hip abd/ext 3+, flexion 3+ No real pain. Knees 4/5 ext adn flexion. Ankles 4/5 in all directions. Sensation in LE WNL to gross light touch. reflexes 1/3 patella and achilles. - hip scour . Very tender L ITB and GT region. - slump and - SLR. - Balance/Special Test Scores Oswestry Low Back Score: 16 - Goals Goal 1:: Pain 0-1/10 at all times an 99% back to normal Goal Time Frame: 4-6 Weeks Goal 2:: Sleep without interruption at night Goal Time Frame: 4-6 Weeks Goal 3:: I approp HEP pool vs home to manage symptoms and maintain improvements. Goal Time Frame: 4-6 Weeks Goal 4:: Work without incrased pain. Goal Time Frame: 4-6 Weeks - Rehabilitation Potential Physical Therapy Diagnosis: Leg adn hip pain from LB vs hip bursitis with resulting deficits in mobility. Rehabilitation Potential: Fair - Anticipated Interventions Patient/Client Instruction: Educate patient on: Condition, Plan of Care For the Purpose of:: To decrease pain, To increase ROM, To improve muscle performance and motor function, To improve ability of physical actions for home/community/work/leisure Therapeutic Exercise to Include: Strength training, Postural training, Flexibilty training, Passive ROM, Active ROM, Dynamic Lumbar Stabilization For the Purpose of:: To decrease pain, To improve nutrient delivery to tissue, To increase oxygenation perfusion, To increase tolerance to activity/condition/position, To improve gait and locomotor functions Thank you for the opportunity to evaluate your patient. For Medicare and Medicare HMO plans, please review the plan of care and approve it. It will need to be FAXED BACK to us at [phone] for Medicare purposes. For Medicare only, by signing this I certify the plan of care. Please let me know if there are questions or concerns regarding this plan of car e. Physician Signature: Date:
--- NOTE | 2021-05-23 16:20 | HP.PTDCSUM ---
It has been my pleasure to treat SUREKHA DOLAN referred by Tyra Campos NP-C, with the diagnosis of Lumbar stenosis for a total of 7 visit(s). Discharge Date: 05/23/21 Please see the following information for a summary of their discharge status. Subjective: Been doing great. Today back and hip are killing her. Not sure why. Maybe ate too much sugar. Will start hydroblast class May 29. Will do ex classes. Not following up with doctor. Sleeping was going well. Confident that she can continue herself in the water. LB and left leg Pain Intensity (Out of 10): 6 % Improvement: 90 Objective/Function: LB AROM ext tight, flexion is good. SB are minimal deficits and slight discomfort. Walks normal without antalgia. Moving well but burning in L butt anad slight back pain. Pt wants to cotninue on her own via membership Goal 1:: Pain 0-1/10 at all times an 99% back to normal Goal Progress: 95% Goal 2:: Sleep without interruption at night Goal Progress: Goal Met Goal 3:: I approp HEP pool vs home to manage symptoms and maintain improvements. Goal Progress: pool class Goal 4:: Work without incrased pain. Goal Progress: most days. Plan: d/c to water ex. Discharge Comments: Will continue via membership in pool and contact doctor if situation worsens. If there are questions or concerns regarding this patient's physical therapy, please feel free to call me at [phone]. Thank you for the referral of this patient. Sincerely, Bk Phelps, DPT, OCS, CSCS Balance/Gait/Functional tests - Balance/Special Test Scores Oswestry Low Back Score: 13
== END 2021-05-23 19:00 | disposition home or self-care (01) ==
LOC: PT 16:00
PROVIDERS: PCP Family Medicine; Referring Provider Nurse Practitioner Acute Care; Visit Provider Nurse Practitioner Acute Care
DX: M48.061 Spinal stenosis, lumbar region without neurogenic claudication (principal)
CPT/HCPCS: 97113; 97162; 97530

== ENCOUNTER → 2021-06-06 08:55 | Outpatient (CLI) | payer OTHER, SELFPAY ==
[2021-06-06 09:38] LABS: Hematocrit 42.4 % (37-47); Hemoglobin 14.2 g/dL (12.0-15.0); Mean Corp Hgb Conc 33.5 g/dL (32-36); Mean Corpuscular Hgb 29.1 pg (27.0-32.0); Mean Corpuscular Volume 86.9 fL (81-99); Mean Platelet Vol. 8.6 fl (6.2-12.0); Platelet Count 330 K/mm3 (150-450); RBC Distribution Width CV 12.8 % (11.6-14.6); RBC Distribution Width SD 40.4 fl (35.1-43.9); Red Blood Count 4.88 M/mm3 (4.2-5.4); White Blood Count 7.3 K/mm3 (4.4-11.0)
[2021-06-06 09:58] LABS: Hemoglobin A1c 6.1 % (3.8-5.6)
[2021-06-06 10:14] LABS: Insulin 24.6 mU/L (2.6-37.6); Vitamin B12 282 pg/mL (211-911); Vitamin D,25 Hydroxy 25.2 ng/mL
[2021-06-06 11:43] LABS: AST(SGOT) 14 U/L (15-37); Alanine Aminotransfer ALT/SGPT 18 U/L (13-56); Albumin, Serum 3.6 g/dL (3.2-5.0); Alkaline Phosphatase 98 U/L (45-117); Anion Gap 9 (5-15); BUN 11 mg/dL (7-18); BUN/Creat Ratio 18.7 RATIO (10-20); CRP, High Sensitivity Cardiac 8.61 mg/L; Calcium,Total 8.7 mg/dL (8.5-10.1); Chloride 102 mmol/L (98-107); Cholesterol 221 mg/dL (200); Creatinine, Serum 0.59 mg/dL (0.55-1.02); EST Glomerular Filtration Rate 110 mL/min (>60); Est Glom Filt Rate - Afr Amer 134 mL/min (>60); Estradiol 28.1 pg/mL; Ferritin 79 ng/mL (8-252); Follicle Stimulating Hormone 34.8 mIU/mL; Free T3 2.8 pg/mL (2.18-3.98); GGTP 45 U/L (5-55); Globulin 3.6 g/dL (2.2-4.2); Glucose 104 mg/dL (74-106); High Density Lipoprotein 37 mg/dL; Potassium 3.5 mmol/L (3.5-5.1); Protein, Total 7.2 g/dL (6.4-8.2); Sodium Level 139 mmol/L (136-145); T4 Free Direct 1.05 ng/dL (0.76-1.46); Thyroid Stim Hormone (TSH) 2.84 uIU/mL (0.358-3.74); Triglycerides 297 mg/dL; Very Low Density Lipoprotein 59 mg/dL (5-40)
[2021-06-10 19:07] LABS: Testosterone, % Free 2.09 % (0.50-2.80); Testosterone, Free 0.56 ng/dL (0.10-0.85); Testosterone, Total 27 ng/dL (3-67)
[2021-06-11 09:06] LABS: DHEA Sulfate 41.7 ug/dL (29.4-220.5)
== END ==
PROVIDERS: PCP Family Medicine
DX: E03.9 Hypothyroidism, unspecified (principal); R63.5 Abnormal weight gain; G47.9 Sleep disorder, unspecified; I10 Essential (primary) hypertension; F41.9 Anxiety disorder, unspecified; N32.81 Overactive bladder; M15.0 Primary generalized (osteo)arthritis; E11.9 Type 2 diabetes mellitus without complications; L70.9 Acne, unspecified
CPT/HCPCS: 36415; 80053; 80061; 82306; 82607; 82627; 82670; 82728; 82977; 83001; 83036; 83525; 84402; 84403; 84439; 84443; 84481; 85027; 86141; 82626

== ENCOUNTER 2021-07-07 11:00 | Outpatient (RCR) | payer OTHER, SELFPAY ==
--- NOTE | 2020-09-26 14:08 | MASS.EVAL ---
Massage Therapy Evaluation: Initial Evaluation Date: 09/22/2020 SUBJECTIVE: Nirmala Bergman is a 59 year old female who was referred to the [facility] for a massotherapy evaluation by Dr. Del Angel with the diagnosis of cervical dystonia and osteoarthritis. She presents today with the symptoms of pain, stiffness and tension in the neck, mid back, and low back. 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 She reports having minimal improvement with exercise and stretching over the last few months. OBJECTIVE: Upon observation Nirmala Bergman has some posture issues with her head and shoulders forward from the neutral position in sitting and standing. After examination and palpation, I found Nirmala Bergman to have high muscle tension with tenderness and myofascial restrictions in her sub occipitals, levator scapulae, trapezius, rhomboids, scalenes, and thoracic paraspinals. Her QL?s, lumbar paraspinals, piriformis, glute medius and minimus all were very tight with fascial restrictions, tender points and trigger points. The first treatment consisted of a one hour massage to her upper body with myofascial release, muscle stripping, trigger point compression techniques, and cervical manual traction. ASSESSMENT: I feel that Nirmala Bergman is a good candidate for massotherapy at this time. She had a favorable response to the first treatment with reduction in her muscle aches, pain and tension. She also had improvement in her cervical flexibility and low back flexibility. PLAN: The plan of care was reviewed with the patient. The patient is to be seen on an as needed basis for a total of ten sessions with the recommendation of once every month for a one hour treatment.
--- NOTE | 2021-08-14 12:57 | DS.PCM_ITS ---
Massage Therapy Discharge Summary: Discharge date 08/14/21 Nirmala Bergman was seen for a massotherapy evaluation on September 22, 2020, with the diagnosis of osteoarthritis. The patient was seen for nine one hour visits. The patient responded well to treatments ans it helped her throughout the year 2020. At this time i am discharging this patient from out care at the [facility].
== END 2021-09-26 09:28 | disposition home or self-care (01) ==
LOC: MASS 11:00
PROVIDERS: PCP Family Medicine; Referring Provider Family Medicine; Visit Provider Family Medicine
DX: G24.9 Dystonia, unspecified (principal); G43.909 Migraine, unspecified, not intractable, without status migrainosus
CPT/HCPCS: 97124

== ENCOUNTER → 2021-07-10 15:44 | Outpatient (CLI) | payer OTHER, SELFPAY ==
--- NOTE | 2021-07-10 11:15 | LES_PTH ---
PATIENT: SUREKHA DOLAN LOC: [facility] U#:[id number] AGE/SX: 64/F ROOM: RE07/10/[address]: Dr. Brian Del Angel DO : 1960 BED: DIS: SPEC #: [id number] RECD: 07/10/21 11:15 STATUS: LUIS FELIPE MIRYAM #: [id number] UZMA: 07/10/21 11:[address]: Brian Del Angel DEPT: SURGICAL PATHOLOGY RECD BY: Ina David Tissues: Skin of back, NOS Procedures: Special Stain Group I Surgery Specimen Level IV AFB Stain (control) HEADER OPERATION: Punch biopsy skin of back PRE-OP DIAGNOSIS: Relapsing itchy rash right back TISSUE SUBMITTED: 5 mm punch biopsy MICROSCOPIC DIAGNOSIS Skin, back, punch biopsy: Minimal dermal chronic inflammation. Negative for malignancy. See comment. KRISTI:yusef 07/12/2021 COMMENT Special stain for fungi is negative for organisms; matched control is appropriate. Clinical correlation and appropriate follow up are necessary. Case has been reviewed in consultation with Dr. Izquierdo who concurs with the above diagnosis. IDC:AM MICROSCOPIC DESCRIPTION Slides are reviewed. GROSS DESCRIPTION Received is one container labeled with the patient's name and not further designated. The specimen consists of a single, irregular fragment of tineo tissue measuring 0.3 x 0.2 x 0.1 mm. The specimen is totally submitted in one cassette. / ADELE:yusef 07/11/21 TC:3 CPT: 92297, 65972
== END ==
PROVIDERS: PCP Family Medicine; Visit Provider Family Medicine
DX: R21 Rash and other nonspecific skin eruption (principal)
CPT/HCPCS: 88305; 88312

== ENCOUNTER 2021-08-28 13:35 | Outpatient (CLI) | payer OTHER, SELFPAY ==
[2021-08-28 14:10] VITALS: BP 187/85; PULSE 89; RESP 16; TEMP 36.9; O2SAT 96; BMI 42.0
[2021-08-28] MEDS: 0.9% Saline Lock 10 ML Syringe IV (14:11)
[2021-08-28 14:53] VITALS: BP 149/81; PULSE 77; RESP 16; TEMP 36.6; O2SAT 98
[2021-08-28 15:40] VITALS: BP 142/87; PULSE 80; RESP 16; TEMP 36.6; O2SAT 99
== END 2021-08-28 23:59 | disposition home or self-care (01) ==
LOC: MS3OUT 13:35 → MS3 13:36
PROVIDERS: PCP Family Medicine; Referring Provider Nurse Practitioner Adult Health; Visit Provider Nurse Practitioner Adult Health
DX: Z23 Encounter for immunization (principal); U07.1 COVID-19
CPT/HCPCS: J7050; M0243; A4216; Q0240

== ENCOUNTER → 2021-12-31 | Outpatient (CLI) | payer OTHER, SELFPAY | END | disposition home or self-care (01) | LOC: LAB 10:55 | PROVIDERS: PCP Family Medicine; Visit Provider Family Medicine | DX: E11.9 Type 2 diabetes mellitus without complications (principal) | CPT/HCPCS: 83036 ==

== ENCOUNTER → 2022-01-15 | Outpatient (CLI) | payer OTHER, SELFPAY ==
[2022-01-16 13:34] LABS: H.Pylori Breath Test Negative (Negative)
== END | disposition home or self-care (01) ==
LOC: LABSPEC 10:13
PROVIDERS: PCP Family Medicine; Visit Provider Family Medicine
DX: R10.13 Epigastric pain (principal)
CPT/HCPCS: 83013

== ENCOUNTER → 2022-03-18 | Outpatient (CLI) | payer OTHER, SELFPAY ==
--- NOTE | 2022-03-18 10:39 | BI_ITS ---
MAMMOGRAPHY - BILATERAL SCREENING REASON FOR EXAM: Female, 61 years old. Routine annual screening examination. PERTINENT HISTORY: Grandmother with breast cancer. Remote right excisional breast biopsy and bilateral breast reduction surgery. TECHNIQUE: Digital bilateral breast yusef (3D mammographic acquisition) in the CC and MLO projections. 2-D mediolateral oblique (MLO) and craniocaudad (CC) views of both breasts were obtained. CAD: Full Field Digital Mammography with Computer Added Detection was performed. COMPARISON: Comparison is made with prior study dated 09/13/2020 and 06/16/2019. FINDINGS: Breast Composition: The breasts are almost entirely fatty. There are no dominant masses or suspicious calcifications. The previously seen 8.5 mm x 10 mm nodule in the upper lateral aspect of the left breast has almost completely resolved. Stable benign-appearing bilateral axillary lymph nodes. No other significant abnormalities are identified. There has been no significant change since the prior study. BI/SCRN MAMM (CAD)W/YUSEF BILAT IMPRESSION: Stable bilateral screening mammogram. Yearly follow-up mammogram recommended. (A) ASSESSMENT CATEGORY: BIRADS Category 2: Benign. A letter regarding these results will be sent to the patient by the facility within 30 days. Approximately 10% of breast cancers are not detected by mammography. A normal mammogram should not delay biopsy of a clinically suspicious abnormality. [id number] Electronically Signed: Daniel Torres MD at 11:25 EDT ,
== END | disposition home or self-care (01) ==
LOC: OPBI 10:35
PROVIDERS: PCP Family Medicine; Visit Provider Family Medicine
DX: Z12.31 Encounter for screening mammogram for malignant neoplasm of breast (principal)
CPT/HCPCS: 77063; 77067

== ENCOUNTER → 2022-04-15 | Outpatient (CLI) | payer OTHER, SELFPAY ==
[2022-04-15 09:18] LABS: Erythrocyte Sedimentation Rate 32 mm/hr (0-30)
[2022-04-15 09:56] LABS: Rheumatoid Factor < 10.0 IU/mL (<15)
[2022-04-16 13:25] LABS: ANTINUCLEAR ANTIBODIES DIRECT Negative (Negative)
[2022-04-18 09:35] LABS: CCP IgG Antibodies 10 units (0-19)
== END | disposition home or self-care (01) ==
LOC: LAB 08:27
PROVIDERS: PCP Family Medicine; Referring Provider Family Medicine; Visit Provider Family Medicine
DX: M13.0 Polyarthritis, unspecified (principal)
CPT/HCPCS: 36415; 85652; 86038; 86140; 86200; 86225; 86235; 86431

== ENCOUNTER → 2022-05-14 | Outpatient (CLI) | payer OTHER, SELFPAY | END | disposition home or self-care (01) | LOC: SL 19:59 | PROVIDERS: PCP Family Medicine; Referring Provider Family Medicine; Visit Provider Family Medicine | DX: G47.33 Obstructive sleep apnea (adult) (pediatric) (principal) | CPT/HCPCS: 95810 ==

== ENCOUNTER → 2022-06-26 | Outpatient (CLI) | payer OTHER, SELFPAY ==
[2022-06-26 12:50] LABS: Base Excess 1 mmol/L (-2 to +2); Bicarbonate 24.7 mmol/L (22-26); Blood Gas Specimen Type ART; FI02 21; PO2 116 mmHG (75-100); SITE R Brach; SO2 99 % (95-99); Total Carbon Dioxide 26 mmol/L; pCO2 32.1 mmHg (35-45); pH 7.49 (7.35-7.45)
== END | disposition home or self-care (01) ==
PROVIDERS: PCP Family Medicine; Referring Provider Nurse Practitioner Acute Care; Visit Provider Nurse Practitioner Acute Care
DX: E66.2 Morbid (severe) obesity with alveolar hypoventilation (principal)
CPT/HCPCS: 36600; 82803

== ENCOUNTER → 2022-09-06 | Outpatient (CLI) | payer OTHER, SELFPAY ==
--- NOTE | 2022-09-06 06:55 | RAD_ITS ---
STUDY: X-RAY - PELVIS AND LEFT HIP REASON FOR EXAM: Female, 61 years old. Pain. TECHNIQUE: 3 views of the pelvis and hip. COMPARISON: None. FINDINGS: There is a non-specific bowel gas pattern. Phleboliths. Mild arthrosis of the sacroiliac joints. Normal bilateral superior and inferior pubic rami. Mild arthrosis of the symphysis pubis. Normal bilateral ischial tuberosities. Mild arthrosis of both hips, left greater than right. RAD/HIP, UNI W/ Pelvis 2-3 Views IMPRESSION: Mild arthrosis of the sacroiliac joints, the symphysis pubis and both hips, left greater than right. No acute abnormality, evidence of erosive changes or fusion. Electronically Signed: Vish Javier, at 13:59 EST ,
--- NOTE | 2022-09-06 08:05 | RAD_ITS ---
STUDY: X-RAY - RIGHT SHOULDER REASON FOR EXAM: Female, 61 years old. Shoulder pain. No known injury. TECHNIQUE: 4 view(s) of the shoulder. COMPARISON: None. FINDINGS: Normal glenohumeral articulation. There is mild degenerative arthrosis of the acromioclavicular joint without inferior osseous spur formation. Normal acromion. Normal humeral head and visualized proximal humerus. The soft tissue structures are unremarkable. Normal visualized pulmonary apex. RAD/Shoulder min 2 Views IMPRESSION: Mild degenerative arthrosis of the acromioclavicular joint. Electronically Signed: Daniel Torres MD at 10:31 EST ,
== END | disposition home or self-care (01) ==
PROVIDERS: PCP Family Medicine; Visit Provider Family Medicine
DX: M19.011 Primary osteoarthritis, right shoulder (principal); M25.511 Pain in right shoulder; M16.12 Unilateral primary osteoarthritis, left hip
CPT/HCPCS: 73030; 73502

== ENCOUNTER → 2022-10-18 | Outpatient (CLI) | payer OTHER, SELFPAY ==
--- NOTE | 2022-10-18 13:34 | BI_ITS ---
MAMMOGRAPHY - UNILATERAL DIAGNOSTIC: RIGHT BREAST REASON FOR EXAM: Female, 61 years old. Right breast pain. PERTINENT HISTORY: Grandmother with breast cancer. Prior bilateral breast reduction surgery. TECHNIQUE: Digital unilateral breast mitzy (3D mammographic acquisition) in the CC and MLO projections. 2-D mediolateral oblique (MLO) and craniocaudad (CC) views of both breasts were obtained. CAD: Full Field Digital Mammography with Computer Added Detection was performed. COMPARISON: Comparison is made with prior study dated 03/18/2022 and 09/13/2020. FINDINGS: Breast Composition: The breasts are almost entirely fatty. There are no dominant masses or suspicious calcifications. No other significant abnormalities are identified. There has been no significant change since the prior study. BI/DIAG MAMM W/CAD, UNILAT IMPRESSION: Stable unilateral diagnostic mammogram. With the patient''s history of pain in the right breast, targeted ultrasound correlation is recommended. ASSESSMENT CATEGORY: BIRADS Category 0: Incomplete. Need additional imaging evaluation. A letter regarding these results will be sent to the patient by the facility within 30 days. Approximately 10% of breast cancers are not detected by mammography. A normal mammogram should not delay biopsy of a clinically suspicious abnormality. Electronically Signed: Daniel Torres MD at 14:45 EST ,
--- NOTE | 2022-10-18 13:34 | US_ITS ---
STUDY: ULTRASOUND BREAST - RIGHT REASON FOR EXAM: Female, 61 years old. Pain in the right breast. TECHNIQUE: Axial and longitudinal images of the RIGHT breast were performed with a high resolution ultrasound transducer. # OF IMAGES: 65 COMPARISON: Comparison is made with prior mammogram done earlier in the day. FINDINGS: RIGHT Breast: The entire right breast was examined with ultrasound. No sonographic abnormality is seen. US/Breast Limited Unilateral IMPRESSION: No sonographic abnormality is seen. ASSESSMENT CATEGORY: BIRADS Category 1: Negative. A letter regarding these results will be sent to the patient by the facility within 30 days. Electronically Signed: Daniel Torres MD at 15:17 EST ,
== END | disposition home or self-care (01) ==
LOC: OPBI 13:31
PROVIDERS: PCP Family Medicine; Visit Provider Family Medicine
DX: N64.4 Mastodynia (principal)
CPT/HCPCS: 76642; 77061; 77065; G0279

== ENCOUNTER → 2023-01-14 | Outpatient (CLI) | payer OTHER, SELFPAY ==
[2023-01-14 20:31] LABS: Hemoglobin A1c 6.8 % (3.8-5.6)
== END | disposition home or self-care (01) ==
LOC: MTLAB 10:57
PROVIDERS: PCP Family Medicine; Referring Provider Family Medicine; Visit Provider Family Medicine
DX: E11.9 Type 2 diabetes mellitus without complications (principal)
CPT/HCPCS: 36415; 83036

== ENCOUNTER → 2023-04-16 | Outpatient (CLI) | payer OTHER, SELFPAY ==
--- NOTE | 2023-04-16 12:14 | BI_ITS ---
MAMMOGRAPHY - BILATERAL SCREENING REASON FOR EXAM: Female, 62 years old. Routine annual screening examination. PERTINENT HISTORY: Grandmother with breast cancer. Right excisional breast biopsy and bilateral breast reduction surgery. TECHNIQUE: Digital bilateral breast yusef (3D mammographic acquisition) in the CC and MLO projections. 2-D mediolateral oblique (MLO) and craniocaudad (CC) views of both breasts were obtained. CAD: Full Field Digital Mammography with Computer Added Detection was performed. COMPARISON: Right breast diagnostic mammogram from 10/18/2022. Screening mammogram from 03/18/2022, 09/13/2020. FINDINGS: Breast Composition: There are scattered areas of fibroglandular density. There are no dominant masses or suspicious calcifications. Benign-appearing bilateral breast calcifications. Benign-appearing stable small bilateral axillary lymph nodes. No other significant abnormalities are identified. There has been no significant change since the prior study. BI/SCRN MAMM (CAD)W/YUSEF BILAT IMPRESSION: Stable bilateral screening mammogram. Yearly follow-up mammogram recommended. (A) ASSESSMENT CATEGORY: BIRADS Category 2: Benign. A letter regarding these results will be sent to the patient by the facility within 30 days. Approximately 10% of breast cancers are not detected by mammography. A normal mammogram should not delay biopsy of a clinically suspicious abnormality. Electronically Signed: Marvel Koehler DO at 12:22 EDT ,
== END | disposition home or self-care (01) ==
LOC: OPBI 12:12
PROVIDERS: PCP Family Medicine; Referring Provider Family Medicine; Visit Provider Family Medicine
DX: Z12.31 Encounter for screening mammogram for malignant neoplasm of breast (principal)
CPT/HCPCS: 77063; 77067

== ENCOUNTER → 2023-05-02 | Outpatient (CLI) | payer OTHER, SELFPAY ==
[2023-05-02 10:13] LABS: T4 Free Direct 0.96 ng/dL (0.76-1.46); Thyroid Stim Hormone (TSH) 4.46 uIU/mL (0.358-3.74)
[2023-05-03 23:47] LABS: Hemoglobin A1c 6.2 % (3.8-5.6)
== END | disposition home or self-care (01) ==
LOC: LAB 08:45
PROVIDERS: PCP Family Medicine; Visit Provider Family Medicine
DX: E03.9 Hypothyroidism, unspecified (principal)
CPT/HCPCS: 36415; 83036; 84439; 84443

== ENCOUNTER → 2023-05-03 | Outpatient (CLI) | payer OTHER, SELFPAY | END | disposition home or self-care (01) | LOC: LAB.FUTURE 22:42 | PROVIDERS: PCP Family Medicine; Visit Provider Family Medicine | DX: E11.9 Type 2 diabetes mellitus without complications (principal); R53.83 Other fatigue ==

== ENCOUNTER 2023-05-05 10:12 | Outpatient (CLI) | payer OTHER, SELFPAY ==
[2023-05-05 11:57] LABS: Microalbumin,Random Urine 57.5 mg/L (NO RANGE EST.)
[2023-05-05 11:59] LABS: Vitamin D,25 Hydroxy 33.8 ng/mL
== END 2023-05-05 23:59 | disposition home or self-care (01) ==
LOC: LAB 10:13
PROVIDERS: PCP Family Medicine; Referring Provider Family Medicine; Visit Provider Family Medicine
DX: R53.83 Other fatigue (principal)
CPT/HCPCS: 36415; 82043; 82306

== ENCOUNTER → 2023-06-26 | Outpatient (CLI) | payer OTHER, SELFPAY ==
--- NOTE | 2023-06-26 14:33 | CT_ITS ---
STUDY: CT CHEST WITHOUT CONTRAST REASON FOR EXAM: Female, 62 years old. FM HX OF GA. Cardiac over read examination. RADIATION DOSAGE (If Supplied By Facility): CTDIvol = ( 12.19 ) mGy, DLP = ( 195.04 ) mGycm TECHNIQUE: Transaxial imaging was performed without the administration of intravenous contrast material. Individualized dose optimization techniques were used for this CT. COMPARISON: No relevant priors. FINDINGS: CHEST Increased linear markings at the left lung base suggestive of linear atelectasis and/or scarring. There is no demonstrated pleural abnormality. Normal heart and pericardium. No coronary artery calcification is seen. There are small lymph nodes within the mediastinum, which are normal in size and morphology most compatible with reactive lymph hyperplasia. Normal hilar regions. Normal unenhanced pulmonary arteries. Mild degree of atherosclerotic plaque formation of the aortic arch. There are multi-level degenerative changes of the thoracic spine. Fatty infiltration of the liver. CT/Limited Chest CT Cardiac Only IMPRESSION: No evidence of coronary artery calcification Electronically Signed: Daniel Torres MD at 15:07 EDT ,
--- NOTE | 2023-07-14 15:53 | CA.SCORE ---
Calcium Scoring Date of Study:: 06/26/23 Indications Indications: FH Coronary Calcium Scoring: High-resolution Computed Tomographic imaging of the chest was performed on [ 06/26/23], with particular attention paid to the coronary arteries. Images from the examination were analyzed for the presence and extent of coronary artery calcification , using coronary calcium quantification software. The patient tolerated the procedure well and there were no complications. The results of the coronary calcification analysis are provided below. Findings Coronary Artery Left Main (LM): 0 Left Anterior Descending (LAD): 0 Left Circumflex (LCX): 0 Right Coronary Artery (RCA): 0 Total Agatston Score: 0 Percentile Rankin Calcium Scoring Interpretation: Different methods to categorize the overall amount of coronary plaque. Overall amount CAC SIS Visual of coronary plaque P1 Mild -100 <2 1-2 vessels with mild amount of plaque P2 Moderate 101-300 3-4 1-2 vessels with moderate amount, 3 vessels with mild amount of plaque P3 Severe 301-999 5-7 3 vessels with moderate amount, 1 vessel with severe amount of plaque P4 Extensive >1000 >8 2-3 vessels with severe amount of plaque Conclusion: No significant atherosclerotic plaquing noted.
== END | disposition home or self-care (01) ==
LOC: CT 14:32
PROVIDERS: PCP Family Medicine; Referring Provider Family Medicine; Visit Provider Family Medicine
DX: I10 Essential (primary) hypertension (principal); E11.9 Type 2 diabetes mellitus without complications; E78.5 Hyperlipidemia, unspecified; Z13.6 Encounter for screening for cardiovascular disorders
CPT/HCPCS: 75571; 76380

== ENCOUNTER → 2023-08-22 | Outpatient (CLI) | payer OTHER, SELFPAY ==
--- OUTSIDE RECORDS SUMMARY | 2023-08-22 06:58 | XMS RPT_ITS | CCD ---
Author Name Unknown Address [address] [place] [address] Organization [facility] Care Team Providers Care Arts Education Teacher Name Role Phone Rishi Tristan Unavailable Polo Herr Attending Unavailable PROVIDER, UNKNOWN Referring Unavailable Shira Del Angel Primary Care Unavailable SHIRA DEL ANGEL Primary Care Unavailable GRUPO MCFARLANE Attending Unavailable SHIRA DEL ANGEL Referring Unavailable SHIRA DEL ANGEL Primary Care Unavailable GRUPO MCFARLANE Referring Unavailable GRUPO MCFARLANE Attending Unavailable SHIRA DEL ANGEL Primary Care Unavailable Allergies Allergy Classification Reported Allergen(s) Allergy Type Date of Onset Reaction(s) Facility (2 sources) atenolol Drug Allergy [facility] Work Phone: (2 sources) butorphanol Drug Allergy 1 [facility] Work Phone: (2 sources) doxycycline Drug Allergy 1 [facility] Work Phone: (2 sources) prochlorperazine Drug Allergy [facility] Work Phone: (2 sources) tetracycline Drug Allergy [facility] Work Phone: Medications Completed/Discontinued Medications Medication Drug Class(es) Dates Sig (Normalized) Sig (Original) amLODIPine 5 mg oral tablet (2 sources) Dihydropyridine Calcium Channel [place] Start: 10-24-2015 NORVASC 5 MG TABS once per daily AMLODIPINE BESYLATE [id number] Shira Del Angel DO amoxicillin 500 mg oral tablet (4 sources) Penicillin-class Antibacterial Start: 07-26-2011 End: 10-24-2015 take 4 tablets by mouth every hour AMOXICILLIN 500 MG TABS 4 tablets by mouth 1 hr prior to procedure AMOXICILLIN [id number] Samreen Thompson aspirin 81 mg delayed release oral tablet (4 sources) Platelet Aggregation Inhibitor, Nonsteroidal Anti-inflammatory Drug Start: 07-26-2011 End: 10-24-2015 take 1 tablet by mouth once daily ECOTRIN LOW STRENGTH 81 MG TBEC One tablet by mouth daily ASPIRIN [id number] Shira Del Angel DO cetirizine hydrochloride 10 mg oral tablet (4 sources) Histamine-1 Receptor Antagonist End: 10-24-2015 take 1 tablet by mouth once daily ZYRTEC ALLERGY 10 MG TABS One tablet by mouth daily CETIRIZINE HCL [id number] Savanna Ashton LPN clopidogrel 75 mg oral tablet (4 sources) P2Y12 Platelet Inhibitor Start: 09-23-2016 PLAVIX 75 MG TABS four tablets by mouth today (300 mg) then 1 tablet by mouth daily CLOPIDOGREL BISULFATE [id number] Paddy Abernathy MD diazePAM 5 mg oral tablet (2 sources) Benzodiazepine Start: 10-24-2015 DIAZEPAM 5 MG TABS as needed up to 3 a day for muscle DIAZEPAM [id number] Shira Del Angel DO esomeprazole 40 mg delayed release oral capsule (2 sources) Proton Pump Inhibitor Start: 07-26-2011 take 1 tablet by mouth once daily NEXIUM 40 MG CPDR One tablet by mouth daily ESOMEPRAZOLE MAGNESIUM [id number] Shira Del Angel DO LEVONORGESTREL IUD (4 sources) Progestin, Progestin-containing Intrauterine Device MIRENA (52 MG) IUD LEVONORGESTREL IUD [id number] Savanna Ashton LPN Problems Active Problems Problem Classification Problem Date Documented Date Episodic/Chronic Anxiety disorders (4 sources) Anxiety disorder; Translations: [Anxiety disorder, unspecified] Onset: 10-24-2015 Resolved: 09-19-2016 10-24-2015 Chronic Disorders of lipid metabolism (2 sources) Hyperlipidemia; Translations: [Hyperlipidemia, unspecified] Onset: 10-24-2015 10-24-2015 Chronic Esophageal disorders (2 sources) Gastroesophageal reflux disease; Translations: [Gastro-esophageal reflux disease without esophagitis] Onset: 10-24-2015 10-24-2015 Chronic Heart valve disorders (4 sources) Mitral valve prolapse; Translations: [Nonrheumatic mitral (valve) prolapse] Onset: 07-26-2011 09-19-2016 Chronic Osteoarthritis (8 sources) Degenerative joint disease involving multiple joints; Translations: [Unilateral primary osteoarthritis, right knee] Onset: 10-24-2015 Resolved: 09-19-2016 09-19-2016 Chronic Other diseases of bladder and urethra (4 sources) Bladder muscle dysfunction - overactive; Translations: [Overactive bladder] Onset: 10-24-2015 Resolved: 09-19-2016 10-24-2015 Chronic Other hereditary and degenerative nervous system conditions (4 sources) Dystonia; Translations: [Dystonia, unspecified] Onset: 10-24-2015 Resolved: 09-19-2016 10-24-2015 Chronic Other nutritional; endocrine; and metabolic disorders (2 sources) Morbid (severe) obesity due to excess calories; Translations: [Morbid (severe) obesity due to excess calories] Onset: 12-22-2022 Chronic Other nutritional; endocrine; and metabolic disorders (2 sources) Morbid (severe) obesity with alveolar hypoventilation; Translations: [Morbid (severe) obesity with alveolar hypoventilation] Onset: 06-28-2022 Chronic Residual codes; unclassified (2 sources) Obstructive sleep apnea syndrome; Translations: [Obstructive sleep apnea (adult) (pediatric)] Onset: 10-24-2015 10-24-2015 Chronic Residual codes; unclassified (2 sources) Obstructive sleep apnea (adult) (pediatric); Translations: [Obstructive sleep apnea (adult) (pediatric)] Onset: 12-22-2022 Chronic Spondylosis; intervertebral disc disorders; other back problems (4 sources) Intervertebral disc disorder of lumbar region with myelopathy; Translations: [Intervertebral disc disorders with myelopathy, lumbar region] Onset: 10-24-2015 Resolved: 09-19-2016 10-24-2015 Chronic Thyroid disorders (6 sources) Hypothyroidism; Translations: [Hypothyroidism, unspecified] Onset: 08-01-2011 Resolved: 10-24-2015 10-24-2015 Chronic Past or Other Problems Problem Classification Problem Date Documented Date Episodic/Chronic Cardiac dysrhythmias (6 sources) Palpitations; Translations: [Palpitations] Onset: 07-26-2011 Resolved: 10-24-2015 07-26-2011 Episodic Disorders of teeth and jaw (2 sources) Jaw pain; Translations: [Jaw pain] Onset: 03-29-2016 03-29-2016 Episodic Genitourinary symptoms and ill-defined conditions (4 sources) Increased frequency of urination; Translations: [Dysuria] Onset: 06-17-2017 06-17-2017 Episodic Other circulatory disease (4 sources) Carotid bruit; Translations: [Other specified symptoms and signs involving the circulatory and respiratory systems] Onset: 07-26-2011 Resolved: 10-24-2015 10-24-2015 Episodic Other [employer] P[employer] infection and poliomyelitis (4 sources) Epidemic vertigo; Translations: [Vestibular neuronitis, unspecified ear] Onset: 11-17-2015 Resolved: 09-19-2016 11-17-2015 Episodic Other lower respiratory disease (10 sources) Dyspnea; Translations: [Dyspnea, unspecified] Onset: 07-26-2011 Resolved: 10-24-2015 10-24-2015 Episodic Other screening for suspected conditions (not mental disorders or infectious disease) (2 sources) Cardiovascular stress test abnormal; Translations: [Abnormal result of other cardiovascular function study] Onset: 09-23-2016 09-23-2016 Episodic Other skin disorders (4 sources) Disorder of skin; Translations: [Disorder of the skin and subcutaneous tissue, unspecified] Resolved: 09-19-2016 09-25-2009 Episodic Residual codes; unclassified (2 sources) Family history of ischemic heart disease and other diseases of the circulatory system; Translations: [Family history of ischemic heart disease and other diseases of the circulatory system] Onset: 09-19-2016 09-19-2016 Episodic Urinary tract infections (4 sources) Urinary tract infectious disease; Translations: [Urinary tract infection, site not specified] Onset: 03-29-2016 Resolved: 09-19-2016 09-19-2016 Episodic Results Test Name Value Interpretation Reference Range Facil ity Vital Signs Date Time Vital Sign Value Performing Clinician Iman cox 06-17-2017 14:29-0400 BMI (Body Mass Index) 42.77 kg/m2 Rishi ADAMS [facility] Work Phone: 06-17-2017 14:29-0400 Body Temperature 98.4 [degF] Rishi ADAMS [facility] Work Phone: 06-17-2017 14:29-0400 BP Diastolic 86 mm[Hg] Rishi Wisdom PA [facility] Work Phone: 06-17-2017 14:29-0400 BP Systolic 134 mm[Hg] Rishi ADAMS [facility] Work Phone: 06-17-2017 14:29-0400 Height 152.4 cm Rishi Wisdom BRYAN [facility] Work Phone: 06-17-2017 14:29-0400 Pulse (Heart Rate) 100 /min Rishi ADAMS [facility] Work Phone: 06-17-2017 14:29-0400 Respiratory Rate 16 /min Rishi ADAMS [facility] Work Phone: 06-17-2017 14:29-0400 Weight 99.34 kg Rishi ADAMS [facility] Work Phone: 09-20-2016 11:42-0500 Heart rate 77 /min Rishi ADAMS [facility] Work Phone: 09-20-2016 11:32-0500 BSA (Body Surface Area) 1.94 m2 Rishi ADAMS [facility] Work Phone: 10-11-2008 10:28-0500 Height 157.48 cm Rishi ADAMS [facility] Work Phone: 10-11-2008 10:28-0500 Weight 83.64 kg Rishi ADAMS [facility] Work Phone: Encounters Encounter Date Encounter Type Care Provider Facility Start: 06-04-2023 ambulatory SHIRA A MATILDE Facilit y: Start: 12-18-2022 ambulatory SHIRA A MATILDE Facilit y: Start: 06-28-2022 ambulatory SHIRA A MATILDE Facilit y: Start: 11-04-2018 Patient encounter procedure [facility] Procedures Date Procedure Procedure Detail Performing Clinician Start: 06-17-2017 End: 06-19-2017 Urinalysis complete panel - Urine Rishi Wisdom BRYAN Work Phone: Start: 06-17-2017 End: 06-17-2017 Urnls dip stick/tablet rgnt non-auto w/o micrscp Rishi ADAMS Work Phone: Start: 09-30-2016 End: 10-03-2016 *PATRICIA Abernathy MD Start: 09-26-2016 End: 09-30-2016 Left Heart Cath Paddy Abernathy MD Start: 09-23-2016 End: 09-23-2016 Nurse, Teaching, Wound Check (no charge) Paddy Abernathy MD Start: 09-20-2016 End: 09-23-2016 *PATRICIA Abernathy MD Start: 09-20-2016 End: 09-23-2016 *Hepatic Function Panel Lluvia Luo Start: 09-20-2016 End: 09-23-2016 CBC W Auto Differential panel - Blood Paddy Abernathy MD Start: 09-20-2016 End: 09-30-2016 Chest x-ray Paddy Abernathy MD Start: 09-20-2016 End: 09-23-2016 Ecg routine ecg w/least 12 lds w/i&r Paddy Abernathy MD Start: 09-20-2016 End: 09-23-2016 Lipid 1996 panel - Serum or Plasma Paddy Abernathy MD Start: 09-20-2016 End: 09-23-2016 Natriuretic peptide B [Mass/volume] in Blood Paddy Abernathy MD Start: 09-20-2016 End: 09-23-2016 Stress Echocardiogram (treadmill) Paddy Abernathy MD Start: 04-11-2016 End: 04-11-2016 Urinalysis Rishi ADAMS Start: 04-10-2016 End: 04-11-2016 Urinalysis complete panel - Urine Shira Del Angel DO Work Phone: Start: 08-01-2011 End: 08-01-2011 Follow Up Appt Allison fernando MD Plan of Treatment Date Care Activity Detail Author Start: 06-17-2017 End: 06-17-2017 Appointment Appointment [facility] Work Phone: Start: 06-17-2017 End: 06-19-2017 Urinalysis complete panel - Urine *UAC- Urinalysis, Complete w/ Micro [facility] Work Phone: Start: 09-30-2016 End: 10-03-2016 *BMP *BMP [facility] Work Phone: Start: 09-30-2016 End: 09-30-2016 Ct angiography chest w/contrast/noncontrast CTA Chest, with contrast material(s) [facility] Work Phone: Start: 09-26-2016 End: 09-25-2016 Left Heart Cath Left Heart Cath [facility] Work Phone: Start: 09-20-2016 End: 09-23-2016 *BMP *BMP [facility] Work Phone: Start: 09-20-2016 End: 09-23-2016 *Hepatic Function Panel *Hepatic Function Panel [facility] Work Phone: Start: 09-20-2016 End: 09-23-2016 BNP *Brain Natriuretic Peptide BNP [facility] Work Phone: Start: 09-20-2016 End: 09-23-2016 CBC W Auto Differential panel - Blood *CBC without Diff [facility] Work Phone: Start: 09-20-2016 End: 09-30-2016 Chest x-ray X-Ray, Chest, PA & Lateral [facility] Work Phone: Start: 09-20-2016 End: 09-23-2016 Ecg routine ecg w/least 12 lds w/i&r EKG (In office) [facility] Work Phone: Start: 09-20-2016 End: 09-23-2016 Lipid panel [AGGREGATE] *Lipid Profile CC PCP [facility] Work Phone: Start: 09-20-2016 End: 09-23-2016 Stress Echocardiogram (treadmill) Stress Echocardiogram (treadmill) [facility] Work Phone: Start: 04-10-2016 End: 04-11-2016 Urinalysis complete panel - Urine *UAC- Urinalysis, Complete w/ Micro [facility] Work Phone: Start: 12-27-2015 End: 12-28-2015 Neurology Referral Neurology Referral BMS Provider, [place], [address] [facility] Work Phone: Start: 11-17-2015 End: 12-28-2015 Other Referral Other Referral BMS Provider, [id number] [place], [address] [facility] Work Phone: Start: 08-01-2011 End: 08-01-2011 Follow Up Appt Other Follow Up Appt Other [facility] Work Phone: Payers Date Payer Category Payer Private Health Insurance [id number] 2013 Unknown [id number] 1960 Unknown [id number] 1959 Unknown [id number] . [id number] 1959 Unknown [id number] 2.. [id number] 1959 Unknown [id number] 2 [id number] Unknown Summary Purpose Family History No Family History Records FoundNo Family History Records FoundNo Family History Records Found Advance Directives No Advanced Directives Records FoundNo Advanced Directives Records FoundNo Advanced Directives Records Found Additional Source Comments INFORMATION SOURCE (unrecogn ized section and content) DATE CREATED AUTHOR AUTHOR'S ORGANIZ ATION 11/09/2018 [facility] DATE CREATED AUTHOR AUTHOR'S ORGANIZ ATION 06/08/2023 [facility] FOR RECORDS PERTAINING TO PATIENTS WHO ARE OR HAVE BEEN ENROLLED IN A CHEMICAL DEPENDENCY/SUBSTANCEABUSE PROGRAM, SOME INFORMATION MAY BE OMITTED. This clinical summary was aggregated from multiple sources. Caution should be exercised in using it in the provision of clinical care. This summary normalizes information from multiple sources, and as a consequence, information in this document may materially change the coding, format and clinical context of patient data. In addition, data may be omitted in some cases. CLINICAL DECISIONS SHOULD BE BASED ON THE PRIMARY CLINICAL RECORDS. [employer] provides no warranty or guarantee of the accuracy or completeness of information in this document.
[2023-08-22 08:33] LABS: Cholesterol 245 mg/dL (200); High Density Lipoprotein 34 mg/dL; Triglycerides 274 mg/dL; Very Low Density Lipoprotein 55 mg/dL (5-40)
[2023-08-22 08:56] LABS: Hemoglobin A1c 6.5 % (3.8-5.6)
== END | disposition home or self-care (01) ==
LOC: LAB 06:56
PROVIDERS: PCP Family Medicine; Referring Provider Family Medicine; Visit Provider Family Medicine
DX: E11.9 Type 2 diabetes mellitus without complications (principal); E78.5 Hyperlipidemia, unspecified
CPT/HCPCS: 36415; 80061; 83036

== ENCOUNTER → 2023-10-10 | Outpatient (CLI) | payer OTHER, SELFPAY ==
--- NOTE | 2023-10-10 09:05 | RAD_ITS ---
PROCEDURE: Fluoroscopic guided right shoulder Injection DATE: October 10, 2023. INDICATION: Female, 62 years old. Chronic right shoulder pain. PHYSICIAN: Daniel Torres M.D. MEDICATIONS: 60 mg of Kenalog and 2 cc of 1% lidocaine. 2% lidocaine administered subcutaneously for local anesthesia. ACCESS SITE: Right shoulder. NEEDLE: 22-gauge spinal needle. FLUOROSCOPY TIME (if supplied): (0:42) minutes/seconds. 23.64 mGy. One image was obtained. FINDINGS: The risks, benefits, and alternatives to the procedure were explained to the patient. The specific risks of bleeding, infection, and neurovascular injury were detailed and accepted. Witnessed informed consent was obtained. A 22-gauge spinal needle was positioned under radiographic fluoroscopic localization. Approximately 2 cc of Isovue-300 instilled for localization purposes. Medication was then injected. The patient tolerated the procedure well without any immediate complications. RAD/Inj/Asp Jcarlos Jt Should/Hip/Knee IMPRESSION: 1. Successful fluoroscopic guided right shoulder injection. 2. The patient tolerated the procedure well. Electronically Signed: Daniel Torres MD at 9:47 EST ,
[2023-10-10] MEDS: Lidocaine 2% (5ml sdv) 5 ML VIAL.MPF INFILT (09:24)
[2023-10-10] MEDS: Triamcinolone Acetonide 40 MG/ML Vial 60 MG INTRAARTIC (09:26)
[2023-10-10] MEDS: Lidocaine 1% (5 ml sdv) 5 ML Vial 2 ML INFILT (09:26)
--- OUTSIDE RECORDS SUMMARY | 2023-10-10 09:31 | XMS RPT_ITS | CCD ---
Author Name Unknown Address [address] [place] [address] Organization [facility] Care Team Providers [employer] Name Role Phone Rishi Tristan Unavailable [...] Reaction(s) Facility (2 sources) atenolol Drug Allergy [facility] Work Phone: (2 sources) butorphanol Drug Allergy 1 [facility] Work Phone: (2 sources) doxycycline Drug Allergy 1 [facility] Work Phone: (2 sources) prochlorperazine Drug Allergy [facility] Work Phone: (2 sources) tetracycline Drug Allergy [facility] Work Phone: Medications Completed/Discontinued Medications Medication Drug Class(es) Dates Sig (Normalized) Sig (Original) amLODIPine 5 mg oral tablet (2 sources) Dihydropyridine Calcium Channel [place] Start: 10-24-2015 NORVASC 5 MG TABS once per daily AMLODIPINE BESYLATE [id number] Shira Del Angel DO amoxicillin 500 mg oral tablet (4 sources) Penicillin-class Antibacterial Start: 07-26-2011 End: 10-24-2015 take 4 tablets by mouth every hour AMOXICILLIN 500 MG TABS 4 tablets by mouth 1 hr prior to procedure AMOXICILLIN [id number] Samreen Thompson aspirin 81 mg delayed release oral tablet (4 sources) Platelet Aggregation Inhibitor, Nonsteroidal Anti-inflammatory Drug Start: 07-26-2011 End: 10-24-2015 take 1 tablet by mouth once daily ECOTRIN LOW STRENGTH 81 MG TBEC One tablet by mouth daily ASPIRIN [id number] Shira Del Angel DO cetirizine hydrochloride 10 mg oral tablet (4 sources) Histamine-1 Receptor Antagonist End: 10-24-2015 take 1 tablet by mouth once daily ZYRTEC ALLERGY 10 MG TABS One tablet by mouth daily CETIRIZINE HCL [id number] Savanna Ashton LPN clopidogrel 75 mg oral tablet (4 sources) P2Y12 Platelet Inhibitor Start: 09-23-2016 PLAVIX 75 MG TABS four tablets by mouth today (300 mg) then 1 tablet by mouth daily CLOPIDOGREL BISULFATE [id number] Paddy Abernathy MD diazePAM 5 mg oral tablet (2 sources) Benzodiazepine Start: 10-24-2015 DIAZEPAM 5 MG TABS as needed up to 3 a day for muscle DIAZEPAM [id number] Shira Del Angel DO esomeprazole 40 mg delayed release oral capsule (2 sources) Proton Pump Inhibitor Start: 07-26-2011 take 1 tablet by mouth once daily NEXIUM 40 MG CPDR One tablet by mouth daily ESOMEPRAZOLE MAGNESIUM [id number] Shira Del Angel DO LEVONORGESTREL IUD (4 sources) Progestin, Progestin-containing Intrauterine Device MIRENA (52 MG) IUD LEVONORGESTREL IUD [id number] Savanna Ashton LPN Problems Active Problems Problem [...] Onset: 07-26-2011 Resolved: 10-24-2015 10-24-2015 Episodic Other [employer] infection and poliomyelitis (4 sources) Epidemic vertigo; [...] (Body Mass Index) 42.77 kg/m2 Rishi ADAMS [facility] Work Phone: 06-17-2017 14:29-0400 Body Temperature 98.4 [degF] Rishi ADAMS [facility] Work Phone: 06-17-2017 14:29-0400 BP Diastolic 86 mm[Hg] Rishi Wisdom PA [facility] Work Phone: 06-17-2017 14:29-0400 BP Systolic 134 mm[Hg] Rishi ADAMS [facility] Work Phone: 06-17-2017 14:29-0400 Height 152.4 cm Rishi Wisdom BRYAN [facility] Work Phone: 06-17-2017 14:29-0400 Pulse (Heart Rate) 100 /min Rishi ADAMS [facility] Work Phone: 06-17-2017 14:29-0400 Respiratory Rate 16 /min Rishi ADAMS [facility] Work Phone: 06-17-2017 14:29-0400 Weight 99.34 kg Rishi ADAMS [facility] Work Phone: 09-20-2016 11:42-0500 Heart rate 77 /min Rishi ADAMS [facility] Work Phone: 09-20-2016 11:32-0500 BSA (Body Surface Area) 1.94 m2 Rishi ADAMS [facility] Work Phone: 10-11-2008 10:28-0500 Height 157.48 cm Rsihi ADAMS [facility] Work Phone: 10-11-2008 10:28-0500 Weight 83.64 kg Rishi ADAMS [facility] Work Phone: Encounters Encounter Date Encounter Type Care Provider Facility Start: 06-04-2023 ambulatory SHIRA A MATILDE Facilit y:[facility] Start: 12-18-2022 ambulatory SHIRA A MATILDE Facilit y:[facility] Start: 06-28-2022 ambulatory SHIRA A MATILDE Facilit y:[facility] Start: 11-04-2018 Patient encounter procedure [facility] Procedures Date Procedure Procedure Detail Performing [...] Author Start: 06-17-2017 End: 06-17-2017 Appointment Appointment [facility] Work Phone: Start: 06-17-2017 End: 06-19-2017 Urinalysis complete panel - Urine *UAC- Urinalysis, Complete w/ Micro [facility] Work Phone: Start: 09-30-2016 End: 10-03-2016 *BMP *BMP [facility] Work Phone: Start: 09-30-2016 End: 09-30-2016 Ct angiography chest w/contrast/noncontrast CTA Chest, with contrast material(s) [facility] Work Phone: Start: 09-26-2016 End: 09-25-2016 Left Heart Cath Left Heart Cath [facility] Work Phone: Start: 09-20-2016 End: 09-23-2016 *BMP *BMP [facility] Work Phone: Start: 09-20-2016 End: 09-23-2016 *Hepatic Function Panel *Hepatic Function Panel [facility] Work Phone: Start: 09-20-2016 End: 09-23-2016 BNP *Brain Natriuretic Peptide BNP [facility] Work Phone: Start: 09-20-2016 End: 09-23-2016 CBC W Auto Differential panel - Blood *CBC without Diff [facility] Work Phone: Start: 09-20-2016 End: 09-30-2016 Chest x-ray X-Ray, Chest, PA & Lateral [facility] Work Phone: Start: 09-20-2016 End: 09-23-2016 Ecg routine ecg w/least 12 lds w/i&r EKG (In office) [facility] Work Phone: Start: 09-20-2016 End: 09-23-2016 Lipid panel [AGGREGATE] *Lipid Profile CC PCP [facility] Work Phone: Start: 09-20-2016 End: 09-23-2016 Stress Echocardiogram (treadmill) Stress Echocardiogram (treadmill) [facility] Work Phone: Start: 04-10-2016 End: 04-11-2016 Urinalysis complete panel - Urine *UAC- Urinalysis, Complete w/ Micro [facility] Work Phone: Start: 12-27-2015 End: 12-28-2015 Neurology Referral Neurology Referral B[place] Provider, [place], [address] [facility] Work Phone: Start: 11-17-2015 End: 12-28-2015 Other Referral Other Referral BMS Provider, [address] [place], [address] [facility] Work Phone: Start: 08-01-2011 End: 08-01-2011 Follow Up Appt Other Follow Up Appt Other [facility] Work Phone: Payers Date Payer Category Payer Private Health Insurance [id number] 2013 Unknown [id number] 1960 Unknown [id number] 1959 Unknown [id number] . [id number] 1959 Unknown [id number] 2.. [id number] 1959 Unknown [id number] 2 [id number] Unknown Summary Purpose Family History No Family History Records FoundNo Family History Records FoundNo Family History Records Found Advance Directives No Advanced Directives Records FoundNo Advanced Directives Records FoundNo Advanced Directives Records Found Additional Source Comments INFORMATION SOURCE (unrecogn ized section and content) DATE CREATED AUTHOR AUTHOR'S ORGANIZ ATION 11/09/2018 [facility] DATE CREATED AUTHOR AUTHOR'S ORGANIZ ATION 06/08/2023 [facility] FOR RECORDS PERTAINING TO PATIENTS WHO ARE [...] BE BASED ON THE PRIMARY CLINICAL RECORDS. [employer] provides no warranty or guarantee of the accuracy or completeness of information in this document.
== END | disposition home or self-care (01) ==
LOC: RAD 09:00
PROVIDERS: PCP Family Medicine; Visit Provider Family Medicine
DX: M25.811 Other specified joint disorders, right shoulder (principal); G89.29 Other chronic pain
CPT/HCPCS: 20610; 77002

== ENCOUNTER → 2023-11-13 | Outpatient (CLI) | payer OTHER, SELFPAY ==
--- NOTE | 2023-11-13 14:20 | RAD_ITS ---
EXAM: XR LUMBOSACRAL SPINE, 4 OR 5 VIEWS CLINICAL INDICATION: LLE PAIN TECHNIQUE: 4 views, AP, lateral and bilateral oblique views. COMPARISON: No relevant prior studies available. FINDINGS: VERTEBRAE: Mild bilateral lateral spondylosis at L2-3 and L3-4, left spondylosis at L4-5. No visible pars defects. Mild levoscoliosis centered at T12-L1. Mild straightening of the usual lordotic curvature. Preserved vertebral body height. No fracture. No significant facet arthropathy. DISC SPACES: Marked disc space narrowing at L4-5 and at least moderate narrowing at L5-S1. GASTROINTESTINAL TRACT: Unremarkable as visualized. Included bowel gas pattern is non-obstructive. RAD/L/S Spine Min 4 Views IMPRESSION: Multilevel degenerative changes. No visible fracture or subluxation. Electronically Signed: Francy Juarez MD at 1:25 EDT ,
--- NOTE | 2023-11-13 14:20 | RAD_ITS ---
INDICATION: LLE PAIN EXAMINATION/TECHNIQUE: X-RAY - XR Hip Unilateral with Pelvis when performed; 2-3 Views COMPARISON: No relevant prior comparison study available FINDINGS: PELVIC BONES: No displaced fracture, destructive or sclerotic lesions. Note that overlapping bowel shadows may however obscure fine detail. Sacroiliac joints are unremarkable. No widening of the pubic symphysis. HIPS: Mild narrowing of the hip joints bilaterally. No displaced fracture seen in this frontal view. SOFT TISSUES: No soft tissue swelling or gas. RAD/HIP, UNI W/ Pelvis 2-3 Views IMPRESSION: Mild narrowing of the hip joints. Electronically Signed: Rui Dawson MD at 14:46 EDT ,
== END | disposition home or self-care (01) ==
LOC: RAD 14:08
PROVIDERS: PCP Family Medicine; Referring Provider Family Medicine; Visit Provider Family Medicine
DX: M54.9 Dorsalgia, unspecified (principal); M79.605 Pain in left leg
CPT/HCPCS: 72110; 73502

== ENCOUNTER 2023-11-18 15:30 | Outpatient (RCR) | payer OTHER, SELFPAY ==
--- NOTE | 2023-09-02 15:45 | HP.PTEVAL_ITS ---
Patient's Visit Information Visit Information Visit Information: SUREKHA DOLAN is a 62 year old F referred to Physical Therapy by Dr. Brian Del Angel DO with a diagnosis of R shoulder impingement adn vertigo. Date of Evaluation: 09/02/23 Physical Therapist: Bk Phelps, DPT, OCS, CSCS Visit Plan Frequency: 2x /Week Duration: 4-6 Weeks Plan: 2x/week for 4-6... 1. US nonthermal to R supra, STM to R UT neck area. Shoulder/neck A/PROM and RC/scap strength. Progress to I home program 2. EG treated with juan day one and should grab Bk for further testing/treat each session if still dizzy. Will do positional checks and treatments and further vestibular as needed. Subjective Subjective: Vertigo. Had it for [address] Nichols in [place]. Has R vestibular neuritis diagnosis long ago and has taken meds for 10 yrs(valtrix) Been doing OK and then worse 2 months ago for no reason. Feels dizzy much of time now. Feels nystagmus. 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 Sometimes also with rolling in bed. IT STAYS WORSE FOR SECONDS. Difficulty focussing for seconds. Not sure why it is worse but did have a borther in May and has been dealing with that, stressful. Sleep is not great as shoulder pain keeps her up. Shoulder: had Carpal tunnel surgery last summer and shoulder has been problematic for a year. Better for alittle bit but came back two months ago. R neck and R shoulder pain. Sore in anterior R shoulder. No numbness or tingling. Lifting and using arm hurts but still does it. Is R handed. Limits use if possible. 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 Hobbies: None. Basic aDLs, I. Does it all but not pleasant. Pain R shoulder: Pain Intensity (Out of 10): 1 Pain Intensity Range: 1, 5 and 9 Objective Objective: Walks slowly with slight wide [place]WN into PT I. Good balance. Transfers bed and chair I. Steps with one rail I. weaker on R(TKA). + L HD for quick up torsional nystagmus, - L HD. treated wtih L modified [place] d[place] instruct cervical AROM is 45 R rot with neck pain R. 55 L rotation, 30 extension no pain. = c/s compression. prominent R UT tighter than L and tender to touch. Also tender over R supraspinatus. + HK, + neer. cervical SB is symmetrical and B painful contralaterally. UE AROM WFL, slow end range of elevation B. elbow ad wrist AROM WFL. reflexes 2/3 bi and tri sensation UE WNL to gross light touch. strength flexion 3+ mild R pain, abd 3+ mild R pain, rotations 3+ R and 4- L, little pain R. IR 4 without pain. elbows 4/5 without apin flexion and extension thumb and wrsit ext 4/5 without pain. Balance/Special Test Scores Functional Gait Assessment Score: 27 % Disability: 10.0000 Quick DASH Score: 34.0900 Goals Goal 1:: Sleep without interruption from shoulder discomfort Goal Time Frame: 4-6 Weeks Goal 2:: Pt feel vertigo back to baseline and shoulder pain 2/10 pain at worst and 80% better Goal Time Frame: 4-6 Weeks Goal 3:: I* appropriate management exercises for impingement strengthening and vertigo as needed. Goal Time Frame: 4-6 Weeks Goal 4:: Work without noticing dizzyness or shoulder pain Goal Time Frame: 4-6 Weeks Goal 5:: 15 or less quick dash Goal Time Frame: 4-6 Weeks Rehabilitation Potential Physical Therapy Diagnosis: BPPV adn R shoulder impingement effecting neck ROM and comfort Rehabilitation Potential: Fair Anticipated Interventions Patient/Client Instruction: Educate patient on: Condition and Plan of Care For the Purpose of:: To decrease pain, To decrease swelling/inflammation, To increase ROM, To improve nutrient delivery to tissue, To improve muscle performance and motor function, To increase tolerance to activity/condition/position and To improve ability of physical actions for home/community/work/leisure Therapeutic Exercise to Include: Strength training, Postural training, Flexibilty training, Passive ROM and Active ROM Comment: vestibular treatments For the Purpose of:: To decrease pain, To decrease swelling/inflammation, To increase ROM, To improve nutrient delivery to tissue, To improve muscle performance and motor function, To increase tolerance to activity/condition/position and To improve ability of physical actions for home/community/work/leisure Manual Therapy Techniques to Include: Mobilization, Passive ROM and Soft tissue mobilization For the Purpose of:: To decrease pain, To decrease swelling/inflammation and To increase ROM Cryotherapy (ice pack, ice massage): Yes Ultrasound (thermal/non thermal): Yes (nonthermal) For the Purpose of:: To decrease pain and To decrease swelling/inflammation Text: Thank you for the opportunity to evaluate your patient. For Medicare and Medicare HMO plans, please review the plan of care and approve it. It will need to be FAXED BACK to us at [phone] for Medicare purposes. For Medicare only, by signing this I certify the plan of care. Please let me know if there are questions or concerns regarding this plan of care. Physician Signature: Date:
--- NOTE | 2023-10-07 16:01 | HP.PTREVAL ---
Re-Evaluation Intro: Dr. Brian Del Angel, DO, It has been my pleasure to treat SUREKHA DOLAN over the last 9 visits for R shoulder impingement adn vertigo. Please see the progress note below for an update on the physical therapy plan of care! Subjective Subjective: R shoulder is sore today. needed to lift heavy stuff at work and pushing heavier loads. This is abnormal lately. 3/10 constant lately otherwise when moving and better tahn it used to be. Neck feeling better. Had massage and MFR and it helped. Doing exercises at home YTB and can use weights at home. Shoulder is 60% better. Neck and clavicle much better. Dizzyness is real good and has been since she was treated , it is gone. Activities normal. Objective Objective/Function: Full aROM R and L shoulder. Strength rotations symmetri manjinder at 4- without pain and elevation at 4- with slight pain R. Tender max to touch R supraspinatus and min in R UT and deltoid. No dizzyness or balance deficits today. New POC and fair prognosis. Plan Plan Plan: weekly x 4 weeks for... 1. DN, US , manaual STM to R shoulder as needed(having injection Friday) monitor progression of strength via HEP adn give OTB. Balance/Gait/Functional tests Balance/Special Test Scores Functional Gait Assessment Score: 27 % Disability: 10.0000 Quick DASH Score: 27.5000 Goals Goals Goal 1:: Sleep without interruption from shoulder discomfort Goal Time Frame: 4-6 Weeks Goal Progress: Goal Met Goal 2:: Pt feel vertigo back to baseline and shoulder pain 2/10 pain at worst and 80% better Goal Time Frame: 4-6 Weeks Goal Progress: Goal Met Goal 3:: I* appropriate management exercises for impingement strengthening and vertigo as needed. Goal Time Frame: 4-6 Weeks Goal Progress: Goal Met Goal 4:: Work without noticing dizzyness or shoulder pain Goal Time Frame: 4-6 Weeks Goal Progress: dizzyness met Goal 5:: 15 or less quick dash Goal Time Frame: 4-6 Weeks Goal Progress: Progressing Goal 6:: Maintain 60% improvement and improve to 80% while progressing HEP stregnth for shoulder. Goal Time Frame: 2-4 Weeks Goal Progress: NEW GOAL Anticipated Interventions Anticipated Interventions Patient/Client Instruction: Educate patient on: Condition and Plan of Care For the Purpose of:: To decrease pain, To decrease swelling/inflammation, To increase ROM, To improve nutrient delivery to tissue, To improve muscle performance and motor function, To increase tolerance to activity/condition/position and To improve ability of physical actions for home/community/work/leisure Therapeutic Exercise to Include: Strength training, Postural training, Flexibilty training, Passive ROM and Active ROM Comment: vestibular treatments For the Purpose of:: To decrease pain, To decrease swelling/inflammation, To increase ROM, To improve nutrient delivery to tissue, To improve muscle performance and motor function, To increase tolerance to activity/condition/position and To improve ability of physical actions for home/community/work/leisure Manual Therapy Techniques to Include: Mobilization, Passive ROM and Soft tissue mobilization For the Purpose of:: To decrease pain, To decrease swelling/inflammation and To increase ROM Cryotherapy (ice pack, ice massage): Yes Ultrasound (thermal/non thermal): Yes (nonthermal) For the Purpose of:: To decrease pain and To decrease swelling/inflammation Re-Evaluation Ending Re-evaluation ending: Please do not hesitate to contact me at [phone] by phone or if you have questions or concerns regarding this new plan of care! Sincerely, Bk Phelps, DPT, OCS, CSCS
--- NOTE | 2023-11-24 10:26 | HP.PTDCSUM ---
Discharge Summary D/C summary: It has been my pleasure to treat SUREKHA DOLAN referred by Dr. Brian Del Angel DO, with the diagnosis of R shoulder impingement adn vertigo for a total of 13 visit(s). Discharge Date: 11/18/23 Please see the following information for a summary of their discharge status. Subjective Subjective: Pt. reports that her arm is just about all better. She is now having some increased pain in her back and leg. Vertigo is gone. Pain R shoulder: Pain Intensity (Out of 10): 0 Overall Improvement % Improvement: 95 Objective Objective/Function: Pt. is no longer having any pain in her neck or shoulder. ROM: Pt. has close to full R shoulder ROM without increase in symptoms. neck ROM is good without increase in symptoms. MMT: Pt. has pretty good strengthen throughout BUEs without increase in symptoms. Her back is bothering her with some pain going down her leg. She has a history of multiple surgeries of her lumbar spine as well. I talked to her about light exercises and to keep walking. Pt. consents. She is going to follow up with physician about her back to see next step with her back. Goals Goal 1:: Sleep without interruption from shoulder discomfort Goal Progress: Goal Met Goal 2:: Pt feel vertigo back to baseline and shoulder pain 2/10 pain at worst and 80% better Goal Progress: Goal Met Goal 3:: I* appropriate management exercises for impingement strengthening and vertigo as needed. Goal Progress: Goal Met Goal 4:: Work without noticing dizzyness or shoulder pain Goal Progress: Goal Met Goal 5:: 15 or less quick dash Goal Progress: Goal Met Goal 6:: Maintain 60% improvement and improve to 80% while progressing HEP stregnth for shoulder. Goal Progress: Goal Met Plan Plan: Pt. to be DC from PT for her neck and shoulder. D/C Information Discharge Comments: Pt. was treated for her dizziness, neck and shoulder. She is currently doing much better and will be DC from PT at this point in time. She is having some increased LBP with what appears to be some radiculopathy. I talked to her about following up with her physician for these symptoms to get evaluated. Pt. consents. d/c sentence: If there are questions or concerns regarding this patient's physical therapy, please feel free to call me at [phone]. Thank you for the referral of this patient. Sincerely, Larry Bhatia, DPT Balance/Gait/Functional tests Balance/Special Test Scores Functional Gait Assessment Score: 27 % Disability: 10.0000 Quick DASH Score: 0 Improvement % Improvement: 95
== END 2023-11-18 19:00 | disposition home or self-care (01) ==
LOC: PT 15:30
PROVIDERS: PCP Family Medicine; Referring Provider Family Medicine; Visit Provider Family Medicine
DX: H81.20 Vestibular neuronitis, unspecified ear (principal); M25.811 Other specified joint disorders, right shoulder
CPT/HCPCS: 97035; 97110; 97140; 97162; 97530

== ENCOUNTER → 2023-11-20 | Outpatient (CLI) | payer OTHER, SELFPAY ==
[2023-11-20 08:08] LABS: Cholesterol 243 mg/dL (200); High Density Lipoprotein 49 mg/dL; Triglycerides 213 mg/dL; Very Low Density Lipoprotein 43 mg/dL (5-40)
[2023-11-20 08:42] LABS: Hemoglobin A1c 6.5 % (3.8-5.6)
== END | disposition home or self-care (01) ==
LOC: LAB 06:57
PROVIDERS: PCP Family Medicine; Referring Provider Family Medicine; Visit Provider Family Medicine
DX: E11.9 Type 2 diabetes mellitus without complications (principal); E78.5 Hyperlipidemia, unspecified
CPT/HCPCS: 36415; 80061; 83036

== ENCOUNTER 2023-12-09 14:30 | Outpatient (RCR) | payer OTHER, SELFPAY ==
--- NOTE | 2024-03-29 13:21 | HP.PTDCNRP_ITS ---
Patient Information Patient Information: SUREKHA DOLAN was seen in my office for initial evaluation on 11/26/23. The following Plan of Care was established for this patient: POC Established Initial Frequency: 2x /Week Initial Duration: 4 Weeks Anticipated Interventions Patient/Client Instruction: Educate patient on: Condition and Plan of Care For the Purpose of:: To decrease pain, To increase ROM, To improve muscle performance and motor function, To improve ability to perform ADL's, To increase tolerance to activity/condition/position, To improve ability of physical actions for home/community/work/leisure, To improve gait and locomotor functions, To improve health of tissue, To decrease soft tissue restriction and To increase flexibility/ROM Therapeutic Exercise to Include: Strength training, Postural training, Flexibilty training, In an aquatic setting, Dynamic Lumbar Stabilization and Manny Exercises For the Purpose of:: To decrease pain, To increase ROM, To improve muscle performance and motor function, To increase tolerance to activity/condition/position, To improve ability of physical actions for mervat e/community/work/leisure, To improve gait and locomotor functions, To improve health of tissue, To decrease soft tissue restriction, To increase flexibility/ROM, To prevent re-injury and To improve tolerance to ADL's TENS: Yes IF ES: Yes Cryotherapy (ice pack, ice massage): Yes Thermo therapy (hot pack): Yes Ultrasound (thermal/non thermal): Yes For the Purpose of:: To decrease pain, To increase ROM, To improve nutrient delivery to tissue, To increase oxygenation perfusion, To improve health of tissue and To decrease soft tissue restriction Last Seen Last Seen: This patient was last seen in our office . Pertinent comments regarding their Physical therapy will appear below: Patient was seen for PT for lumbar radiculopathy with pain for modalities . Patient had MRI thus had MRI is d/c At this point I will be discontinuing this patient from physical therapy. I would be happy to see this patient again in the future if found appropriate by the physician. Thank you! Solis Mao, PT, Cert MDT, OCS Balance/Gait/Functional tests Balance/Special Test Scores Oswestry Low Back Score: 28
== END 2023-12-09 19:00 | disposition home or self-care (01) ==
LOC: PT 14:30
PROVIDERS: PCP Family Medicine; Referring Provider Family Medicine; Visit Provider Family Medicine
DX: M54.17 Radiculopathy, lumbosacral region (principal)
CPT/HCPCS: 97014; 97035; 97162; G0283

== ENCOUNTER → 2024-01-15 | Outpatient (CLI) | payer OTHER, SELFPAY ==
--- NOTE | 2024-01-15 07:36 | MRI_ITS ---
STUDY: MRI LUMBAR SPINE WITH AND WITHOUT CONTRAST REASON FOR EXAM: Female, 63 years old. STENOSIS, LEFT LEG PAIN, WEAKNESS, NUMBNESS TECHNIQUE: Standardized fat and water weighted pulse sequences were obtained in the sagittal and axial planes. IV 20 ml clariscan was administered for the contrast portion of the examination. COMPARISON: None FINDINGS: Normal lumbar lordosis. There is a dextroscoliosis of the lumbar spine. Normal conus medullaris that terminates at the T12-L1 level. No marrow edema or fracture or compression deformity is present. No lytic or blastic lesions are seen. There is no evidence of metastatic disease. T12-L1: Normal endplates. Minimal posterior disc space narrowing and slight annular bulging. Normal bilateral facet joints. Normal central canal and bilateral lateral recesses. Normal bilateral intervertebral neural foramina. L1-2: Diffuse disc desiccation with mild disc space narrowing and slight annular bulging and endplate spurring. Mild facet joint hypertrophy. Normal central canal and bilateral lateral recesses. Normal bilateral intervertebral neural foramina. L2-3: Moderate disc space narrowing with diffuse disc bulge/disc spur complex. Slight retrolisthesis of L2 on L3 of no more than 2 mm. Mild to moderate facet joint hypertrophy and mild central canal stenosis. Mild to moderate left foraminal stenosis with posterior nerve root impingement. Normal right neural foramen. L3-4: Moderate disc space narrowing with a diffuse disc spur complex. Mild central canal stenosis. Mild to moderate facet joint hypertrophy. Mild bilateral foraminal stenosis. Normal central canal and bilateral lateral recesses. Normal bilateral intervertebral neural foramina. L4-5: Diffuse disc desiccation with moderate disc space narrowing and diffuse disc bulging with minor endplate spurring. Mild to moderate facet joint hypertrophy contributing to bilateral lateral recess stenosis with mild compression of the descending nerve roots and mild central canal stenosis. Moderate left foraminal stenosis with nerve root compression. Mild right foraminal stenosis. Mild Modic endplate degenerative signal is present on both sides of the disc space. L5-S1: Diffuse disc desiccation with mild to moderate disc space narrowing and mild posterior annular bulging. Mild facet joint hypertrophy. Mild bilateral foraminal stenosis. Normal central canal and bilateral lateral recesses. Normal visualized sacral ala. Normal visualized paraspinous soft tissue structures. Postcontrast images: Mild Modic endplate degenerative reactive enhancement across the L4-L5 disc space. There are no enhancing lesions of the bony or soft tissue structures are distal spinal cord. No suspicious abnormalities are present. MRI/Spine Lumbar W/WO Contrast IMPRESSION: 1. Multilevel degenerative changes, as described above. 2. Moderate left foraminal stenosis with nerve root compression at L4-L5 Electronically Signed: Marek Fowler MD at 10:19 EDT ,
[2024-01-16 16:12] LABS: CREATININE FINGERSTICK < 1.0 mg/dL (0.55-1.02); EGFR FINGERSTICK > 60.0000 mL/min (>60)
== END | disposition home or self-care (01) ==
LOC: MRI 07:29
PROVIDERS: PCP Family Medicine; Referring Provider Nurse Practitioner; Visit Provider Nurse Practitioner
DX: M48.061 Spinal stenosis, lumbar region without neurogenic claudication (principal)
CPT/HCPCS: 72158; A9575; A4216

== ENCOUNTER → 2024-02-23 | Outpatient (CLI) | payer OTHER, SELFPAY ==
--- NOTE | 2024-02-23 13:20 | RAD_ITS ---
STUDY: X-RAY - RIGHT KNEE REASON FOR EXAM: Female, 63 years old. KNEE PAIN STATUS POST FALL TECHNIQUE: 4 views of the right knee. COMPARISON: None. FINDINGS: There is a right total knee arthroplasty with patellar resurfacing. The orthopedic hardware components are intact. There is no periprosthetic fracture. There is no knee joint effusion. Normal proximal tibiofibular articulation. RAD/Knee 4 or More Views IMPRESSION: Right total knee arthroplasty, with no periprosthetic fracture.. Electronically Signed: Wing Natarajan MD at 13:34 EDT ,
== END | disposition home or self-care (01) ==
LOC: RAD 13:15
PROVIDERS: PCP Family Medicine; Referring Provider Family Medicine; Visit Provider Family Medicine
DX: M25.561 Pain in right knee (principal)
CPT/HCPCS: 73564

== ENCOUNTER → 2024-03-17 | Outpatient (CLI) | payer OTHER, SELFPAY ==
--- NOTE | 2024-03-17 11:41 | NEURO ---
NCS and/or EMG Patient Report Ordering Doctor: Brian Del Angel DATE OF SERVICE: 03/17/24 Clinical Summary: 63 year old female patient with symptoms of pain that radiates from her back down the left leg to the foot. Nerve Conduction Studies Summary: Nerve conduction studies of the left lower extremity were normal. Needle Examination Summary: Needle examination of select muscles of the left lower extremity demonstrated a higher proportion of motor unit action potentials with reduced recruitment, increased amplitude, increased duration, and polyphasia in the left L5 myotome. Impression: There is electrodiagnostic evidence of the following - 1) Chronic, left L5 radiculopathy. Multi Select Codes Neurology Neurology Interp Codes: 71745-51 Musc test done w/n test comp (interp) (1) and 11462-51 Nrv cndj tst 3-4 studies (interp)
== END | disposition home or self-care (01) ==
LOC: PSN 09:57
PROVIDERS: PCP Family Medicine; Referring Provider Family Medicine; Visit Provider Family Medicine
DX: M79.605 Pain in left leg (principal); M48.062 Spinal stenosis, lumbar region with neurogenic claudication
CPT/HCPCS: 95886; 95909

== ENCOUNTER 2024-05-27 09:53 | Outpatient (RCR) | payer OTHER, SELFPAY | END 2024-06-24 23:59 | LOC: NS 09:53 | PROVIDERS: PCP Family Medicine; Referring Provider Family Medicine; Visit Provider Family Medicine | DX: Z71.3 Dietary counseling and surveillance (principal); E66.9 Obesity, unspecified; E11.9 Type 2 diabetes mellitus without complications; Z68.41 Body mass index [BMI] 40.0-44.9, adult | CPT/HCPCS: 97802 ==

== ENCOUNTER → 2024-06-21 | Outpatient (CLI) | payer OTHER, SELFPAY ==
--- NOTE | 2024-06-21 14:10 | RAD_ITS ---
PROCEDURE: Fluoroscopic right shoulder Injection DATE: June 21, 2024. INDICATION: Female, 63 years old. Chronic right shoulder pain. PHYSICIAN: Daniel Torres M.D. MEDICATIONS: 40 mg of Kenalog and 2 cc of 1% lidocaine. 2% lidocaine administered subcutaneously for local anesthesia. ACCESS SITE: Right shoulder. NEEDLE: 22-gauge spinal needle. FLUOROSCOPY TIME (if supplied): (0:44) minutes/seconds. 2 images were submitted. FINDINGS: The risks, benefits, and alternatives to the procedure were explained to the patient. The specific risks of bleeding, infection, and neurovascular injury were detailed and accepted. Witnessed informed consent was obtained. A 22-gauge spinal needle was positioned under radiographic fluoroscopic localization. Approximately 2 cc of Isovue-300 instilled for localization purposes. Medication was then injected. The patient tolerated the procedure well without any immediate complications. RAD/Inj/Asp Jcarlos Jt Should/Hip/Knee IMPRESSION: 1. Successful fluoroscopic guided right shoulder injection. Electronically Signed: Daniel Torres MD at 15:24 EDT ,
[2024-06-21] MEDS: Lidocaine 2% (5ml sdv) 5 ML VIAL.MPF INFILT (14:27)
[2024-06-21] MEDS: Lidocaine 1% (5 ml sdv) 5 ML Vial 2 ML INFILT ×2 (14:28→14:37)
[2024-06-21] MEDS: Triamcinolone Acetonide 40 MG/ML Vial INTRAARTIC ×2 (14:28→14:37)
--- NOTE | 2024-06-21 14:30 | RAD_ITS ---
PROCEDURE: Fluoroscopic guided left Hip Injection DATE: June 21, 2024. INDICATION: Female, 63 years old. Chronic hip pain. PHYSICIAN: Daniel Torres M.D. MEDICATIONS: 40 mg of Kenalog and 2 cc of 1% lidocaine. 2% Lidocaine administered subcutaneously for local anesthesia. ACCESS SITE: Left hip. NEEDLE: 22-gauge spinal needle. FLUOROSCOPY TIME (if supplied): (0:44) minutes/seconds. 28 mGy. One image was submitted. FINDINGS: The risks, benefits, and alternatives to the procedure were explained to the patient. The specific risks of bleeding, infection, and neurovascular injury were detailed and accepted. Witnessed informed consent was obtained. A 22-gauge spinal needle was positioned radiographically fluoroscopic localization. Approximately 2 cc of Isovue-300 instilled for localization purposes. Medication was then injected. The patient tolerated the procedure well without any immediate complications. RAD/Inj/Asp Jcarlos Jt Should/Hip/Knee IMPRESSION: 1. Successful fluoroscopic guided left hip injection. Electronically Signed: Daniel Torres MD at 15:25 EDT ,
[2024-06-21] MEDS: Lidocaine 2% (5ml sdv) 5 ML VIAL.MPF (14:35)
--- OUTSIDE RECORDS SUMMARY | 2024-06-21 17:14 | XMS RPT_ITS | CCD ---
Author Organization [facility] ion Partnership ASSISTANT ACCOUNT EXECUTIVE [facility] Care Team Providers Care Fish Technologist Name Role Phone Rishi Tristan Unavailable Polo [...] Reaction(s) Facility (2 sources) atenolol Drug Allergy [facility] Work Phone: (2 sources) butorphanol Drug Allergy 1 [facility] Work Phone: (2 sources) doxycycline Drug Allergy 1 [facility] Work Phone: (2 sources) prochlorperazine Drug Allergy [facility] Work Phone: (2 sources) tetracycline Drug Allergy [facility] Work Phone: Medications Completed/Discontinued Medications Medication Drug Class(es) Dates Sig (Normalized) Sig (Original) amLODIPine 5 mg oral tablet (2 sources) Dihydropyridine Calcium Channel [place] Start: 10-24-2015 NORVASC 5 MG TABS once per daily AMLODIPINE BESYLATE [id number] Shira Del Angel DO amoxicillin 500 mg oral tablet (4 sources) Penicillin-class Antibacterial Start: 07-26-2011 End: 10-24-2015 take 4 tablets by mouth every hour AMOXICILLIN 500 MG TABS 4 tablets by mouth 1 hr prior to procedure AMOXICILLIN [id number] Samreen Thompson aspirin 81 mg delayed release oral tablet (4 sources) Platelet Aggregation Inhibitor, Nonsteroidal Anti-inflammatory Drug Start: 07-26-2011 End: 10-24-2015 take 1 tablet by mouth once daily ECOTRIN LOW STRENGTH 81 MG TBEC One tablet by mouth daily ASPIRIN [id number] Shira Del Angel DO cetirizine hydrochloride 10 mg oral tablet (4 sources) Histamine-1 Receptor Antagonist End: 10-24-2015 take 1 tablet by mouth once daily ZYRTEC ALLERGY 10 MG TABS One tablet by mouth daily CETIRIZINE HCL [id number] Savanna Ashton LPN clopidogrel 75 mg oral tablet (4 sources) P2Y12 Platelet Inhibitor Start: 09-23-2016 PLAVIX 75 MG TABS four tablets by mouth today (300 mg) then 1 tablet by mouth daily CLOPIDOGREL BISULFATE [id number] Paddy Abernathy MD diazePAM 5 mg oral tablet (2 sources) Benzodiazepine Start: 10-24-2015 DIAZEPAM 5 MG TABS as needed up to 3 a day for muscle DIAZEPAM [id number] Shira Del Angel DO esomeprazole 40 mg delayed release oral capsule (2 sources) Proton Pump Inhibitor Start: 07-26-2011 take 1 tablet by mouth once daily NEXIUM 40 MG CPDR One tablet by mouth daily ESOMEPRAZOLE MAGNESIUM [id number] Shira Oxana Del Angel DO LEVONORGESTREL IUD (4 sources) Progestin, Progestin-containing Intrauterine Device MIRENA (52 MG) IUD LEVONORGESTREL IUD [id number] Savanna Ashton LPN End: 03-29-2016 MIRENA (52 MG) IUD 5 LEVONORGESTREL IUD [id number] Glory Phelps NP levothyroxine sodium 0.075 mg oral tablet (6 sources) l-Thyroxine Start: 2015 take 1 tablet by mouth once daily LEVOTHYROXINE SODIUM 75 MCG TABS One tablet by mouth daily LEVOTHYROXINE SODIUM [id number] Shira Del Angel DO Start: 08-01-2011 take 1 tablet by glenn once daily LEVOTHROID 75 MCG TABS One tablet by mouth daily LEVOTHYROXINE SODIUM Romana Mauricio RN Start: 08-01-2011 End: 2015 take 1 tablet by mouth once daily LEVOTHROID 75 MCG TABS One tablet by mouth daily LEVOTHYROXINE SODIUM Shira Del Angel DO LORazepam 0.5 mg oral tablet (2 sources) Benzodiazepine Start: 07-26-2011 ATIVAN 0.5 MG TABS As needed LORAZEPAM [id number] Samreen Thompson metaxalone 800 mg oral tablet (4 sources) Start: 07-26-2011 End: 10-24-2015 SKELAXIN 800 MG TABS As needed METAXALONE [id number] Samreen Jonasward mometasone furoate 0.05 mg/actuat metered dose nasal spray (4 sources) Corticosteroid Start: 09-19-2016 take 2 spray(s) nasal route once daily as needed MOMETASONE FUROATE 50 MCG/ACT SUSP 2 sprays each nostril once a day as needed MOMETASONE FUROATE [id number] Paddy Abernathy MD naproxen 250 mg oral tablet (4 sources) Nonsteroidal Anti-inflammatory Drug Start: 07-26-2011 End: 10-24-2015 take 1 tablet by mouth twice daily NAPROXEN 250 MG TABS One tablet by mouth twice daily NAPROXEN [id number] Samreen M Jay ondansetron 8 mg oral tablet (4 sources) Serotonin-3 Receptor Antagonist Start: 10-24-2015 End: 09-19-2016 ZOFRAN 8 MG TABS ONDANSETRON HCL [id number] Lynnette Hancock RN oseltamivir 75 mg oral capsule (4 sources) Neuraminidase Inhibitor Start: 11-02-2015 End: 03-29-2016 take 1 capsule by mouth once daily TAMIFLU 75 MG CAPS One capsule by mouth once daily for influenza prophylaxis OSELTAMIVIR PHOSPHATE [id number] Shira Del Angel DO oxybutynin chloride 0.1 mg/mg topical gel (4 sources) Cholinergic Muscarinic Antagonist Start: 10-24-2015 End: 03-29-2016 GELNIQUE 10 % GEL 3 pumps once a day OXYBUTYNIN CHLORIDE [id number] Glory Phelps NP sulfamethoxazole 800 mg / trimethoprim 160 mg oral tablet (4 sources) Dihydrofolate Reductase Inhibitor Antibacterial, Sulfonamide Antimicrobial Start: 03-29-2016 End: 09-19-2016 take 1 tablet by mouth twice daily SULFAMETHOXAZOLE- TRIMETHOPRIM 800-160 MG TABS One tablet by mouth twice daily for 7 days SULFAMETHOXAZOLE- TRIMETHOPRIM [id number] Lynnette Hancock RN valACYclovir 500 mg oral tablet (4 sources) Herpesvirus Nucleoside Analog DNA Polymerase Inhibitor, Herpes Simplex Virus Nucleoside Analog DNA Polymerase Inhibitor, Herpes Zoster Virus Nucleoside Analog DNA Polymerase Inhibitor Start: 03-29-2016 take 1 tablet by mouth twice daily VALTREX 500 MG TABS Take 1 po twice daily -as prescribed by neurologist. VALACYCLOVIR HCL [id number] Glory Phelps NP Start: 03-29-2016 VALTREX 500 MG TABS 1000 mg take 1 po twice daily -as prescribed by neurologist. 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 infection and poliomyelitis (4 sources) Epidemic vertigo; [...] Results Test Name Value Interpretation Reference Range Facility CT Low Ext w/o Contrast [facility] denise 11-04-2018 CT Low Ext w/o Contrast Right Patient Name: SUREKHA DOLAN CT Exam Date/Time 11/04/2018 14:23:[address] Low Ext w/o Contrast Right Ordering Physician MD HERR JONATHAN A Accession Number [id number] CPT4 Codes 90131 () Reason For Exam RIGHT KNEE [facility] OA Report Examination: CT right lower extremity limited Clinical Indication: Osteoarthritis, surgical planning Comparison: None Findings: Serial axial noncontrast 5 mm images obtained through the right hip, 1 mm images through the right knee and 5 mm images through the right ankle with lateral measurement bar in place pursuant to the [facility] robotic surgical protocol. Right SI joint demonstrates some vacuum. Right hip demonstrates moderate hip joint space narrowing and osteoarthropathy. Fibrocystic changes, synovial herniation pit seen along the anterior femoral head neck junction. Small cam seen along the anterior femoral head neck junction. 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 This is incompletely united. Right knee demonstrates moderate knee joint space narrowing with marginal osteophytes, osteoarthropathy. Enthesophyte seen along the superior patellar margin. Small subchondral cyst lateral tibial plateau. Right ankle demonstrates mild ankle joint space narrowing and osteoarthropathy with subchondral sclerosis and small osteophytes. Impression: 1. Limited evaluation for surgical planning purposes. 2. Advanced right knee osteoarthropathy. 3. 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 Report Dictated on Final Dictated: 11/04/2018 2:44 pm Dictating Physician: MD CAAL ANTHONY J Signed Date and Time: 11/04/2018 2:48 pm Signed by: MD CAAL ANTHONY J Transcribed Date and Time: 11/04/2018 2:44 Normal [facility] Lab Report: (P) Urinalysis, Completeon 06-17-2017 Bilirubin Ql (U) Negative Invalid Interpretation Code Negative [facility] Work Phone: NITRITE UR Negative Invalid Interpretation Code Negative [facility] Work Phone: OCCULT BLOOD-UR 10 High Negative [facility] Work Phone: specific gravity, urine 1.005 Invalid Interpretation Code 1.002-1.030 [facility] Work Phone: Urine, clarity Clear Invalid Interpretation Code Clear [facility] Work Phone: Urine, color Yellow Invalid Interpretation Code Yellow [facility] Work Phone: [phone] Urine, glucose presence Normal mg/dl Invalid Interpretation Code Normal [facility] Work Phone: [phone] Urine, ketones presence Negative Invalid Interpretation Code Negative [facility] Work Phone: [phone] Urine, leukocyte esterase presence Negative Invalid Interpretation Code Negative [facility] Work Phone: Urine, pH 7.0 [pH] Invalid Interpretation Code 5.0 - 8.0 [facility] Work Phone: Urine, protein Negative Invalid Interpretation Code Negative [facility] Work Phone: UROBILI Normal mg/dl Invalid Interpretation Code Normal [facility] Work Phone: Office Visit: UC: dysuriaon 06-17-2017 Documentation of current medications (procedure) Done Invalid Interpretation Code [facility] Work Phone: Fall risk assessment No Invalid Interpretation Code [facility] Work Phone: Protein mass conc Done Invalid Interpretation Code [facility] Work Phone: Tobacco smoking status NHIS Never Invalid Interpretation Code [facility] Work Phone: Tobacco smoking status NHIS Former smoker Invalid Interpretation Code [facility] Work Phone: Tobacco use [facility] Former smoker Invalid Interpretation Code [facility] Work Phone: Replaced Document: Urinalysi s, Completeon 06-17-2017 Urine, bacteria in sediment 0 /[HPF] Invalid Interpretation Code None Seen [facility] Work Phone: Urine, epithelial cells in sediment 0 SEEN Invalid Interpretation Code 5-10 [facility] Work Phone: Urine, erythrocytes in sediment by volume 0 SEEN Invalid Interpretation Code 0-5 [facility] Work Phone: Urine, mucus presence in sediment 0 SEEN Invalid Interpretation Code [facility] Work Phone: WBC (Leukocytes) 0 SEEN Invalid Interpretation Code 0-5 [facility] Work Phone: Lab Report: Basic Metabolic Profile (BMP)on 10-03-2016 Anion gap 8 mmol/L Invalid Interpretation Code 5-15 [facility] Work Phone: Anion gap 4 molar conc 8 Invalid Interpretation Code 5-15 [facility] Work Phone: Calcium mass conc 8.6 mg/dL Invalid Interpretation Code 8.5-10.1 [facility] Work Phone: Chloride molar conc 103 mmol/L Invalid Interpretation Code 98-107 [facility] Work Phone: CO2 29.0 mmol/L Invalid Interpretation Code 21.0-32.0 [facility] Work Phone: [phone] CO2 ppres (BldV) 29.0 mmol/L Invalid Interpretation Code 21.0-32.0 [facility] Work Phone: Creatinine mass conc 0.60 mg/dL Invalid Interpretation Code 0.55-1.02 [facility] Work Phone: eGFR (non-black) 133 mL/min/{1.73_m2} Invalid Interpretation Code >60 [facility] Work Phone: EST GFR - AA 133 mL/min Invalid Interpretation Code >60 [facility] Work Phone: GFR/1.73 sq M predicted among non-blacks MDRD vol rate/area (S/P/Bld) 110 mL/min/{1.73_m2} Invalid Interpretation Code >60 [facility] Work Phone: Glucose mass conc 105 mg/dL Invalid Interpretation Code 70-110 [facility] Work Phone: Potassium molar conc 3.7 mmol/L Invalid Interpretation Code 3.5-5.1 [facility] Work Phone: Sodium molar conc 140 mmol/L Invalid Interpretation Code 136-145 [facility] Work Phone: Urea nitrogen mass conc 9 mg/dL Invalid Interpretation Code 7-18 [facility] Work Phone: Urea nitrogen/Creatinine mass ratio 15.0 RATIO Invalid Interpretation Code 10-20 [facility] Work Phone: Lab Report: BNP,B-Type NATRI URETIC PEPTIDEon 09-23-2016 Natriuretic peptide B mass conc (Bld) 7.2 pg/mL Invalid Interpretation Code 0-100 [facility] Work Phone: Lab Report: CBC-Complete Blo od Cnt No Diffon 09-23-2016 Erythrocyte distribution width Auto Ratio (RBC) 12.9 % Invalid Interpretation Code 11.6-14.6 [facility] Work Phone: Erythrocyte distribution width Auto Ratio (RBC) 40.2 fL Invalid Interpretation Code 35.1-43.9 [facility] Work Phone: Hematocrit Auto Volume Fraction (Bld) 42.2 % Invalid Interpretation Code 37-47 [facility] Work Phone: Hemoglobin mass conc (Bld) 14.4 g/dL Invalid Interpretation Code 12.0-15.0 [facility] Work Phone: MCH Auto Entitic mass (RBC) 29.3 pg Invalid Interpretation Code 27.0-32.0 [facility] Work Phone: MCHC Auto mass conc (RBC) 34.1 G/GL Invalid Interpretation Code 32-36 [facility] Work Phone: MCV Auto Entitic volume (RBC) 85.8 fL Invalid Interpretation Code 81-99 [facility] Work Phone: Platelet mean volume Jaxon-Saray Entitic volume (Bld) 8.3 fL Invalid Interpretation Code 6.2-12.0 [facility] Work Phone: Platelets Auto #/vol (Bld) 304 10*3/mm3 Invalid Interpretation Code 150-450 [facility] Work Phone: RBC Auto #/vol (Bld) 4.92 10*6/uL Invalid Interpretation Code 4.2-5.4 [facility] Work Phone: RDW SD 40.2 fL Invalid Interpretation Code 35.1-43.9 [facility] Work Phone: WBC Auto #/vol (Bld) 6.7 10*3/uL Invalid Interpretation Code 4.4-11.0 [facility] Work Phone: Lab Report: Lipid Profileon 09-23-2016 Cholesterol in HDL mass conc 46 mg/dL Invalid Interpretation Code [facility] Work Phone: Cholesterol in LDL mass conc 125 mg/dL Invalid Interpretation Code 0-130 [facility] Work Phone: Cholesterol mass conc 220 mg/dL High 200 [facility] Work Phone: Lipoprotein.pre-beta mass conc 49 mg/dL High 5-40 [facility] Work Phone: Triglyceride mass conc 243 mg/dL High [facility] Work Phone: Lab Report: Liver Profileon 09-23-2016 Albumin mass conc 3.8 g/dL Invalid Interpretation Code 3.4-5.0 [facility] Work Phone: Alkaline phosphatase (ALP) 111 U/L Invalid Interpretation Code 45-117 [facility] Work Phone: ALP enzyme act/vol (Bld) 111 U/L Invalid Interpretation Code 45-117 [facility] Work Phone: ALT enzyme act/vol 16 U/L Invalid Interpretation Code 12-78 [facility] Work Phone: AST enzyme act/vol 11 U/L Low 15-37 [facility] Work Phone: Bilirubin mass conc 0.40 mg/dL Invalid Interpretation Code 0.20-1.00 [facility] Work Phone: Bilirubin.direct mass conc 0.07 mg/dL Invalid Interpretation Code 0.00-0.30 [facility] Work Phone: Globulin Calculated mass conc (S) 3.3 g/dL Invalid Interpretation Code 2.3-3.5 [facility] Work Phone: Protein mass conc 7.1 g/dL Invalid Interpretation Code 6.4-8.2 [facility] Work Phone: Replaced Document: Ceferino PALOMO Observationson 09-20-2016 EKG QRS axis 7 deg Invalid Interpretation Code [facility] Work Phone: Interpretation Sinus Rhythm Low voltage in precordial leads. -Poor R-wave progression -may be secondary to pulmonary disease consider old anterior infarct. ABNORMAL Invalid Interpretation Code [facility] Work Phone: P [place] 39 deg Invalid Interpretation Code [facility] Work Phone: DC Interval 204 ms Invalid Interpretation Code [facility] Work Phone: Pulse (Heart Rate) 77 /min Invalid Interpretation Code [facility] Work Phone: QRS Duration 86 ms Invalid Interpretation Code [facility] Work Phone: QT Interval new path ms Invalid Interpretation Code [facility] Work Phone: QTc Haro 413 ms Invalid Interpretation Code [facility] Work Phone: T [place] 43 deg Invalid Interpretation Code 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 Work Phone: Lab Report: (P) Urinalysis, Completeon 04-11-2016 Albumin Ql (U) Negative Invalid Interpretation Code Negative [facility] Work Phone: Bilirubin Ql (U) Negative Invalid Interpretation Code Negative [facility] Work Phone: Color Nom (U) Yellow Invalid Interpretation Code Yellow [facility] Work Phone: Glucose Ql (U) Normal mg/dl Invalid Interpretation Code Normal [facility] Work Phone: Ketones mass conc (U) Negative Invalid Interpretation Code Negative [facility] Work Phone: Leukocyte esterase Test strip Ql (U) Negative Invalid Interpretation Code Negative [facility] Work Phone: OCCULT BLOOD-UR 10 High Negative [facility] Work Phone: pH Test strip (U) 7.0 [pH] Invalid Interpretation Code 5.0 - 8.0 [facility] Work Phone: Specific gravity Refractometry Relative Density (U) 1.005 Invalid Interpretation Code 1.002-1.030 [facility] Work Phone: Lab Report: Urinalysis, Comp leteon 04-11-2016 Epithelial cells LM.HPF #/area (Urine sed) 0-5 SEEN Invalid Interpretation Code 5-10 [facility] Work Phone: Mucus LM Ql (Urine sed) 0 SEEN Invalid Interpretation Code [facility] Work Phone: RBC LM.HPF #/vol (Urine sed) 0 SEEN Invalid Interpretation Code 0-5 [facility] Work Phone: WBC 0 SEEN Invalid Interpretation Code 0-5 [facility] Work Phone: Lab Report: CBC, Employeeon 03-20-2016 Absolute Neut 3.6 X10 3/UL Invalid Interpretation Code 2.0-7.7 [facility] Work Phone: Basophils/100 WBC Auto (Bld) 0.8 % Invalid Interpretation Code 0-1 [facility] Work Phone: Eosinophils/100 WBC Auto (Bld) 2.8 % Invalid Interpretation Code 0-5 [facility] Work Phone: Lymphocytes Auto #/vol (Bld) 1.73 X10 3/UL Invalid Interpretation Code 0.83-4.51 [facility] Work Phone: Lymphocytes/100 WBC Auto (Bld) 28.6 % Invalid Interpretation Code 19-41 [facility] Work Phone: Monocytes/100 WBC Auto (Bld) 8.3 % Invalid Interpretation Code 0-10 [facility] Work Phone: Neutrophils Auto #/vol (Bld) 3.6 X10 3/UL Invalid Interpretation Code 2.0-7.7 [facility] Work Phone: Neutrophils/100 WBC Auto (Bld) 59.3 % Invalid Interpretation Code 47-70 [facility] Work Phone: Lab Report: Employee Profile on 03-20-2016 Albumin/Globulin mass ratio 1.2 {ratio} Invalid Interpretation Code 0.9-2.4 [facility] Work Phone: LDH 164 U/L Invalid Interpretation Code 84-246 [facility] Work Phone: PHOS 3.0 mg/dL Invalid Interpretation Code 2.5-4.9 [facility] Work Phone: Urate mass conc 6.1 mg/dL High 2.6-6.0 [facility] Work Phone: Vital Signs Date Time Vital Sign Value Performing Clinician Iman cox 06-17-2017 14:29-0400 BMI (Body Mass Index) 42.77 kg/m2 Rishi Wisdom BRYAN [facility] Work Phone: 06-17-2017 14:29-0400 Body Temperature 98.4 [degF] Rishi Wisdom [facility] Work Phone: 06-17-2017 14:29-0400 BP Diastolic 86 mm[Hg] Rishi Wisdom [facility] Work Phone: 06-17-2017 14:29-0400 BP Systolic 134 mm[Hg] Rishi Wisdom [facility] Work Phone: 06-17-2017 14:29-0400 Height 152.4 cm Rishi Wisdom [facility] Work Phone: 06-17-2017 14:29-0400 Pulse (Heart Rate) 100 /min Rishi Wisdom [facility] Work Phone: 06-17-2017 14:29-0400 Respiratory Rate 16 /min Rishi Wisdom [facility] Work Phone: 06-17-2017 14:29-0400 Weight 99.34 kg Rishi Wisdom [facility] Work Phone: 09-20-2016 11:42-0500 Heart rate 77 /min Rishi Wisdom [facility] Work Phone: 09-20-2016 11:32-0500 BSA (Body Surface Area) 1.94 m2 Rishi Wisdom [facility] Work Phone: 10-11-2008 10:28-0500 Height 157.48 cm Rishi Artis [facility] Work Phone: 10-11-2008 10:28-0500 Weight 83.64 kg Rishi ADAMS [facility] Work Phone: Encounters Encounter Date Encounter Type Care Provider Facility Start: 06-04-2023 ambulatory SHIRA Daigle MATILDE Facilit y:[facility] Start: 12-18-2022 ambulatory SHIRA Daigle MATILDE Facilit y:[facility] Start: 06-28-2022 ambulatory SHIRA Daigle MATILDE Facilit y:[facility] Start: 11-04-2018 Patient encounter procedure [facility] Procedures Date Procedure Procedure Detail Performing Clinician Start: 06-17-2017 End: 06-19-2017 Urinalysis complete panel - Urine Rishi ADAMS Work Phone: Start: 06-17-2017 End: 06-17-2017 Urnls dip stick/tablet rgnt non-auto w/o micrscp Rishi ADAMS Work Phone: Start: 09-30-2016 End: 10-03-2016 *BMP Paddy Abernathy MD Start: 09-26-2016 End: 09-30-2016 Left Heart Cath Paddy Abernathy MD Start: 09-23-2016 End: 09-23-2016 Nurse, Teaching, Wound Check (no charge) Paddy Abernathy MD Start: 09-20-2016 End: 09-23-2016 *BMP Paddy Abernathy MD Start: 09-20-2016 End: 09-23-2016 *Hepatic [...] 08-01-2011 End: 08-01-2011 Follow Up Appt Other Mohit fernando MD Plan of Treatment Date Care Activity Detail Author Start: 06-17-2017 End: 06-17-2017 Appointment Appointment [facility] Work Phone: Start: 06-17-2017 End: 06-19-2017 Urinalysis complete panel - Urine *UAC- Urinalysis, Complete w/ Micro [facility] Work Phone: Start: 09-30-2016 End: 10-03-2016 *BMP *BMP [facility] Work Phone: Start: 09-30-2016 End: 09-30-2016 Ct angiography chest w/contrast/noncontrast CTA Chest, with contrast material(s) [facility] Work Phone: Start: 09-26-2016 End: 09-25-2016 Left Heart Cath Left Heart Cath [facility] Work Phone: Start: 09-20-2016 End: 09-23-2016 *BMP *BMP [facility] Work Phone: Start: 09-20-2016 End: 09-23-2016 *Hepatic Function Panel *Hepatic Function Panel [facility] Work Phone: Start: 09-20-2016 End: 09-23-2016 BNP *Brain Natriuretic Peptide BNP [facility] Work Phone: Start: 09-20-2016 End: 09-23-2016 CBC W Auto Differential panel - Blood *CBC without Diff [facility] Work Phone: Start: 09-20-2016 End: 09-30-2016 Chest x-ray X-Ray, Chest, PA & Lateral [facility] Work Phone: Start: 09-20-2016 End: 09-23-2016 Ecg routine ecg w/least 12 lds w/i&r EKG (In office) [facility] Work Phone: Start: 09-20-2016 End: 09-23-2016 Lipid panel [AGGREGATE] *Lipid Profile CC PCP [facility] Work Phone: Start: 09-20-2016 End: 09-23-2016 Stress Echocardiogram (treadmill) Stress Echocardiogram (treadmill) [facility] Work Phone: Start: 04-10-2016 End: 04-11-2016 Urinalysis complete panel - Urine *UAC- Urinalysis, Complete w/ Micro [facility] Work Phone: Start: 12-27-2015 End: 12-28-2015 Neurology Referral Neurology Referral [facility] Provider, [place], [address] [facility] Work Phone: Start: 11-17-2015 End: 12-28-2015 Other Referral Other Referral [facility] Provider, [address] [place], [address] [facility] Work Phone: Start: 08-01-2011 End: 08-01-2011 Follow Up Appt Other Follow Up Appt Other [facility] Work Phone: Payers Date Payer Category Payer Private Health Insurance [id number] 2013 Unknown [id number] 1959 Unknown [id number] 1959 Unknown [id number] 1959 Unknown [id number] 1959 Unknown [id number] Unknown Summary Purpose Family History No Family History Records FoundNo Family History Records FoundNo Family History Records Found Advance Directives No Advanced Directives Records FoundNo Advanced Directives Records FoundNo Advanced Directives Records Found Additional Source Comments INFORMATION SOURCE (unrecogn ized section and content) DATE CREATED AUTHOR 11/05/2018 [employer] DATE CREATED AUTHOR AUTHOR'S ORGANIZ ATION 11/09/2018 [employer] DATE CREATED AUTHOR AUTHOR'S ORGANIZ ATION 06/08/2023 [facility] FOR RECORDS PERTAINING TO PATIENTS [...] BE BASED ON THE PRIMARY CLINICAL RECORDS. [employer] [facility]. provides no warranty or guarantee of the accuracy or completeness of information in this document.
== END | disposition home or self-care (01) ==
LOC: RAD 13:37
PROVIDERS: PCP Family Medicine; Referring Provider Family Medicine; Visit Provider Family Medicine
DX: M25.811 Other specified joint disorders, right shoulder (principal); M16.12 Unilateral primary osteoarthritis, left hip
CPT/HCPCS: 20610; 77002; Q9967

== ENCOUNTER 2024-06-29 10:21 | Outpatient (RCR) | payer OTHER, SELFPAY | END 2024-07-24 23:59 | LOC: NS 10:21 | PROVIDERS: PCP Family Medicine; Referring Provider Family Medicine; Visit Provider Family Medicine | DX: Z71.3 Dietary counseling and surveillance (principal); E66.9 Obesity, unspecified; E11.9 Type 2 diabetes mellitus without complications; Z68.41 Body mass index [BMI] 40.0-44.9, adult | CPT/HCPCS: 97803 ==

== ENCOUNTER 2024-08-03 10:43 | Outpatient (RCR) | payer OTHER, SELFPAY | END 2024-08-24 23:59 | LOC: NS 10:43 | PROVIDERS: PCP Family Medicine; Referring Provider Family Medicine; Visit Provider Family Medicine | DX: Z71.3 Dietary counseling and surveillance (principal); E11.9 Type 2 diabetes mellitus without complications; E66.9 Obesity, unspecified | CPT/HCPCS: 97803 ==

== ENCOUNTER 2024-09-06 10:23 | Outpatient (RCR) | payer OTHER, SELFPAY | END 2024-09-24 23:59 | LOC: NS 10:23 | PROVIDERS: PCP Family Medicine; Referring Provider Family Medicine; Visit Provider Family Medicine | DX: Z71.3 Dietary counseling and surveillance (principal); E66.9 Obesity, unspecified; E11.9 Type 2 diabetes mellitus without complications; Z68.41 Body mass index [BMI] 40.0-44.9, adult | CPT/HCPCS: 97803 ==

== ENCOUNTER → 2024-09-10 | Outpatient (CLI) | payer OTHER, SELFPAY ==
--- NOTE | 2024-09-10 14:13 | MRI_ITS ---
STUDY: MRI RIGHT SHOULDER REASON FOR EXAM: Female, 63 years old. IMPINGEMENT SYNDROME RT SHOULDER pain in RT shoulder radiates to elbow and up the neck to lateral RT neck TECHNIQUE: Standardized fat and water weighted pulse sequences were obtained in all 3 orthogonal planes. COMPARISON: Right shoulder x-ray dated September 06, 2022 FINDINGS: Partial bursal surface tear in the far anterolateral aspect of the supraspinatus tendon measures 3 mm and seen on image 14/22 series 5. There is also mild to moderate tendinosis and intratendinous increased signal at the greater tuberosity insertion site. A small amount of overlying subdeltoid bursal fluid is also present. A small joint effusion is also noted. Normal infraspinatus tendon. Normal subscapularis tendon. Normal teres minor tendon. Normal supraspinatus muscle. Normal infraspinatus muscle. Normal subscapularis muscle. Normal teres minor muscle. Normal glenohumeral articulation. Normal humeral head and visualized proximal humerus. Normal biceps labral complex. Normal intracapsular long biceps tendon. There is labral degeneration with blunting of the naomy, but there is no demonstrated discrete labral tear. Normal capsulo- ligamentous complex. Normal rotator interval. There is mild osteoarthritis of the acromioclavicular articulation. There is a Type II morphology (curved), with a neutral orientation. There is no subacromial-subdeltoid bursal fluid. Normal visualized coracohumeral and coracoacromial ligaments. Normal quadrilateral space. Normal axillary space. Normal deltoid muscle. Normal trapezius muscle. MRI/Upper Ext Joint Only(Routine) IMPRESSION: 1. Partial bursal surface tear in the far anterolateral aspect of the supraspinatus tendon measures 3 mm and seen on image 14/22 series 5. There is also mild to moderate tendinosis and intratendinous increased signal at the greater tuberosity insertion site. A small amount of overlying subdeltoid bursal fluid is also present. A small joint effusion is also noted. Electronically Signed: Marek Fowler MD at 10:41 EST ,
--- NOTE | 2024-09-10 14:14 | MRI_ITS ---
EXAM: MR CERVICAL SPINE WITHOUT INTRAVENOUS CONTRAST CLINICAL INDICATION: DDD WITH RADICULOPATHY TECHNIQUE: Multiplanar and multisequence MR images of the cervical spine without intravenous contrast were performed. COMPARISON: No relevant prior studies available. 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 VERTEBRAE: Multilevel endplate osteophytosis and facet arthrosis. No fracture or traumatic subluxation. Maintained cervical lordosis. Normal craniocervical junction and cervicothoracic junction. SPINAL CORD: Unremarkable in signal and morphology. SOFT TISSUES: No significant abnormality. No prevertebral soft tissue swelling. LYMPH NODES: No significant abnormality. There is no cervical adenopathy. DISCS/SPINAL CANAL/NEURAL FORAMINA: C2-C3: Moderate bilateral facet arthrosis. No disc herniation, spinal canal stenosis, or neural foraminal narrowing. C3-C4: Mild bilateral facet and uncovertebral joint arthrosis. Mild bilateral neural foraminal narrowing. No disc herniation or spinal canal stenosis. C4-C5: Moderate bilateral facet and uncovertebral joint arthrosis. Mild bilateral neural foraminal narrowing. No disc herniation or spinal canal stenosis. C5-C6: Mild bilateral facet joint arthrosis. No disc herniation, spinal canal stenosis, or neural foraminal narrowing. C6-C7: Small central disc herniation and mild facet and uncovertebral joint arthrosis. No significant spinal canal or neural foraminal stenosis. C7-T1: No significant abnormality. No disc herniation, spinal canal stenosis, or neural foraminal narrowing. MRI/Spine Cervical (Routine) IMPRESSION: 1. Mild degenerative changes throughout the cervical spine. No critical spinal canal or neural foraminal stenosis and no spinal cord signal abnormality. 2. 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 Electronically Signed: Tan Dillard DO at 17:16 EST ,
== END | disposition home or self-care (01) ==
PROVIDERS: PCP Family Medicine; Referring Provider Orthopaedic Surgery; Visit Provider Orthopaedic Surgery
DX: M75.41 Impingement syndrome of right shoulder (principal); M50.10 Cervical disc disorder with radiculopathy, unspecified cervical region

== ENCOUNTER 2024-10-12 10:45 | Outpatient (RCR) | payer OTHER, SELFPAY | END 2024-10-22 23:59 | LOC: NS 10:45 | PROVIDERS: PCP Family Medicine; Referring Provider Family Medicine; Visit Provider Family Medicine | DX: Z71.3 Dietary counseling and surveillance (principal); E66.9 Obesity, unspecified; E11.9 Type 2 diabetes mellitus without complications; Z68.41 Body mass index [BMI] 40.0-44.9, adult | CPT/HCPCS: 97803 ==

== ENCOUNTER → 2024-10-19 | Outpatient (CLI) | payer OTHER, SELFPAY ==
[2024-10-19 07:55] LABS: T4 Free Direct 1.15 ng/dL (0.76-1.46)
[2024-10-19 08:26] LABS: Vitamin B12 442 pg/mL (211-911); Vitamin D,25 Hydroxy 71.3 ng/mL
[2024-10-20 15:08] LABS: Thyroglobulin Antibody < 1.0 IU/mL (0.0-0.9); Thyroid Peroxidase AB < 9 IU/mL (0-34)
[2024-10-20 16:03] LABS: Microalbumin,Random Urine < 12.0 mg/L (NO RANGE EST.)
== END | disposition home or self-care (01) ==
LOC: LAB 06:38
PROVIDERS: PCP Family Medicine; Referring Provider Family Medicine; Visit Provider Family Medicine
DX: Z00.00 Encounter for general adult medical examination without abnormal findings (principal); E11.9 Type 2 diabetes mellitus without complications; R53.83 Other fatigue; R79.89 Other specified abnormal findings of blood chemistry
CPT/HCPCS: 36415; 82043; 82306; 82570; 82607; 83036; 84439; 84443; 86376; 86800

== ENCOUNTER → 2024-10-21 | Outpatient (CLI) | payer OTHER, SELFPAY ==
--- NOTE | 2024-10-21 07:45 | MRI_ITS ---
PROCEDURE: MRI left hip without IV contrast REASON FOR EXAM: Pain TECHNIQUE: Multisequence multiplanar MR images of the left hip were obtained without the administration of intravenous contrast. COMPARISON: None. FINDINGS Negative for acute fracture or marrow replacement. No avascular necrosis. No sizeable joint effusion or synovitis. Diffuse chondral thinning along the anterosuperior and posterosuperior acetabulum. No displaced labral tear or paralabral cysts. Normal femoral head neck morphology. Mild gluteus minimus tendinopathy near its insertion. Gluteus medius tendon is intact. Gluteus zi, common hamstring, rectus femoris and iliopsoas tendons are within normal limits. Muscle bulk is symmetric and within normal limits. Trace fluid in the greater trochanteric bursa. No significant findings within the pelvis. Moderate degenerative changes of the lower lumbar spine. MRI/Lower Ext Joint Only (Routine) IMPRESSION: 1. No acute osseous abnormality. 2. Mild insertional gluteus minimus tendinopathy without tear. 3. Trace fluid in the trochanteric bursa. 4. Mild chondral thinning of the acetabulum. 5. Degenerative changes of the lower lumbar spine. Reading Location: [facility]
== END | disposition home or self-care (01) ==
LOC: MRI 06:48
PROVIDERS: PCP Family Medicine; Referring Provider Specialist; Visit Provider Specialist
DX: M25.552 Pain in left hip (principal)
CPT/HCPCS: 73721

== ENCOUNTER → 2024-11-03 | Outpatient (CLI) | payer OTHER, SELFPAY ==
--- NOTE | 2024-11-03 12:00 | BI_ITS ---
PROCEDURE: SCRN MAMM (CAD)W/YUSEF BILAT REASON FOR EXAM: F, Age 63 y/o , SCREENING. Grandmother with breast cancer. TECHNIQUE: Bilateral screening digital breast tomosynthesis with 2D and 3D images. Computer aided detection. COMPARISON: Prior exam(s) dating back to April 16, 2023. FINDINGS: The breasts are almost entirely fatty. Secretory calcifications are seen in the right breast. Stable benign-appearing axillary lymph nodes. No suspicious masses, areas of developing architectural distortion, or suspicious calcifications. BI/SCRN MAMM (CAD)W/YUSEF BILAT IMPRESSION: BI-RADS 2: BENIGN. RECOMMEND ANNUAL MAMMOGRAPHIC SCREENING. Follow-up code: Routine Follow-up The patient will be notified of the results by letter. Reading Location: [place] [id number]
== END | disposition home or self-care (01) ==
LOC: OPBI 11:58
PROVIDERS: PCP Family Medicine; Referring Provider Family Medicine; Visit Provider Family Medicine
DX: Z12.31 Encounter for screening mammogram for malignant neoplasm of breast (principal)
CPT/HCPCS: 77063; 77067

== ENCOUNTER → 2024-11-08 | Outpatient (CLI) | payer OTHER, SELFPAY ==
[2024-11-08 15:11] LABS: Color, Urine Yellow (Yellow); Glucose, Dipstick Normal (Normal); Ketone-Dipstick Negative (Negative); Leukocyte Esterase-Dipstick 100 /ul (Negative); Nitrite-Dipstick Negative (Negative); Occult Blood-Urine 25 /ul (Negative); Protein-Dipstick 15 mg/dl (Negative); Urine Bilirubin Dipstick Negative (Negative); Urine Clarity Clear (Clear); Urine Urobilinogen Normal (Normal)
== END | disposition home or self-care (01) ==
LOC: LAB 14:27
PROVIDERS: PCP Family Medicine; Referring Provider Family Medicine; Visit Provider Family Medicine
DX: R30.0 Dysuria (principal)
CPT/HCPCS: 81002; 87086; 87088; 87186

== ENCOUNTER 2024-12-16 10:56 | Outpatient (RCR) | payer OTHER, SELFPAY | END 2024-12-22 23:59 | LOC: NS 10:56 | PROVIDERS: PCP Family Medicine; Referring Provider Family Medicine; Visit Provider Family Medicine | DX: Z71.3 Dietary counseling and surveillance (principal); E11.9 Type 2 diabetes mellitus without complications; E66.9 Obesity, unspecified; Z68.41 Body mass index [BMI] 40.0-44.9, adult | CPT/HCPCS: 97803 ==

== ENCOUNTER 2025-03-02 15:30 | Outpatient (RCR) | payer OTHER, SELFPAY ==
--- NOTE | 2025-02-09 16:46 | HP.PTEVAL ---
Patient's Visit Information Visit Information Visit Information: SUREKHA DOLAN is a 64 year old F referred to Physical Therapy by Dr. Polo Herr MD with a diagnosis of Bursitis L hip. Date of Evaluation: 02/09/25 Physical Therapist: Bk Phelps, DPT, OCS, CSCS Visit Plan Frequency: 2x /Week Duration: 4 Months Plan: 2x/week for 4 weeks... IE HEP: SLR abd with IR 3x10 and prifiormis stretch 30 5x daily with activity modificaiton and sleeping position, HO given treat with US nonthermal to L anterior GT area/glut min, STM to same and stretch it out, eccentric strngth gluts focussing min. general hip strength to HEP, CFM may be helpful and will consider shockwave if not improving by end of January. Subjective Subjective: Trouble with L hip pain for several yrs. Hard to stand up from certain chair as it freezes. Starting IVs hinging at hip can hurt it. Pain is lateral. Thought she needed hip replacement. MRI ordered. tendonosis. MAYCO not required. Lying on that side hurts and wakes her up. Sitting in certain chairs can hurt. Stairs hurt also. Trying therapy before injection. No previous treatment other than red light therapy and celebrex and voltarin , ibuprofen without much relief. 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 Activities: Can do basics but painful to stand up, Hobbies include gardening and sedentary. Pain L hip lat: Pain Intensity (Out of 10): 2 Pain Intensity Range: 0 and 6 Comment: naggy 1/10 , painfree at times at rest in right chair. Objective Objective: L antalgia in gait slightly but I. Trasnfers chair and bed I, careful with L leg movements. Tender to palpation over GT L hip anterior greater than posterior. Hip AROM B 110 flexion, 48 er, 8 IR, 5 extension without asymmetries or eexcessive pain, - [place], - FADDIR L. knee R aROM limited due to previous TKA other zelaya WFL. ankles AROM WFL and strength 4/5 knee ext and flexion strength 4-/5, hip abd L 3 and R 3+, flexion 3+ B, ext 3 B, abduction painful L and worse toe rotated in. Good balance today but hesitant to turn qucikly due to pain L hip reflexes 2/3 patella and achilles sensation WNL B LE to gross lgiht touch. Balance/Special Test Scores Lower Extremity Functional Score: 42 Goals Goal 1:: Pain L hip 70% better at 2/10 at worst and manageable Goal Time Frame: 4-6 Weeks Goal 2:: sleep without intrruption at night from pain Goal Time Frame: 4-6 Weeks Goal 3:: walk without antalgia into and out of clinic Goal Time Frame: 4-6 Weeks Goal 4:: LEFS 50 Goal Time Frame: 4-6 Weeks Rehabilitation Potential Physical Therapy Diagnosis: soft tissu chronic inflammation L bursa likely glut min effecting function Rehabilitation Potential: Good Anticipated Interventions Patient/Client Instruction: Educate patient on: Condition and Plan of Care For the Purpose of:: To decrease pain, To increase ROM, To improve nutrient delivery to tissue, To improve muscle performance and motor function and To increase tolerance to activity/condition/position Therapeutic Exercise to Include: Strength training, Flexibilty training, Gait and locomotor training, Passive ROM and Active ROM For the Purpose of:: To decrease pain, To increase ROM, To improve nutrient delivery to tissue, To improve muscle performance and motor function and To increase tolerance to activity/condition/position Manual Therapy Techniques to Include: Mobilization, Passive ROM and Soft tissue mobilization For the Purpose of:: To decrease pain, To increase ROM, To improve nutrient delivery to tissue, To improve muscle performance and motor function, To increase tolerance to activity/condition/position, To improve ability of physical actions for home/community/work/leisure and To improve gait and locomotor functions Cryotherapy (ice pack, ice massage): Yes Ultrasound (thermal/non thermal): Yes (nonthermal) For the Purpose of:: To decrease pain, To decrease swelling/inflammation, To increase ROM, To improve nutrient delivery to tissue and To improve muscle performance and motor function Text: Thank you for the opportunity to evaluate your patient. For Medicare and Medicare HMO plans, please review the plan of care and approve it. It will need to be FAXED BACK to us at [phone] for Medicare purposes. For Medicare only, by signing this I certify the plan of care. Please let me know if there are questions or concerns regarding this plan of care. Physician Signature: Date:
--- NOTE | 2025-03-02 15:57 | HP.PTDCSUM ---
Discharge Summary D/C summary: It has been my pleasure to treat SUREKHA DOLAN referred by Dr. Polo Hrer MD, with the diagnosis of Bursitis L hip for a total of 6 visit(s). Discharge Date: 03/02/25 Please see the following information for a summary of their discharge status. Subjective Subjective: Pain is alot better Patient has been stretching at home Patient avoid sleeping on side Pain L hip lat: Pain Intensity (Out of 10): 1 Overall Improvement % Improvement: 80 Objective Objective/Function: GAIT: reciprocal pattern waddle gait MMT: quads/hams 4/5 ,hip flexion 4/5 ,hip abd 4-/ 5 PALPATION: tender Greater trochanter NEURO: denies paresthesia/tingling SLS : slight lateral tilting Goals Goal 1:: Pain L hip 70% better at 2/10 at worst and manageable Goal Progress: Goal Met Goal 2:: sleep without intrruption at night from pain Goal Progress: Progressing Goal 3:: walk without antalgia into and out of clinic Goal Progress: Progressing Goal 4:: LEFS 50 Goal Progress: Progressing Plan Plan: D/C TO HEP D/C Information Discharge Comments: HEP d/c sentence: If there are questions or concerns regarding this patient's physical therapy, please feel free to call me at [phone]. Thank you for the referral of this patient. Sincerely, Solis Mao PT, Cert MDT, OCS Balance/Gait/Functional tests Balance/Special Test Scores Lower Extremity Functional Score: 43 Improvement % Improvement: 80
== END 2025-03-02 19:00 | disposition home or self-care (01) ==
LOC: PT 15:30
PROVIDERS: PCP Family Medicine; Referring Provider Orthopaedic Surgery; Visit Provider Orthopaedic Surgery
DX: M70.62 Trochanteric bursitis, left hip (principal)
CPT/HCPCS: 97035; 97110; 97140; 97161; 97530

== ENCOUNTER → 2025-04-27 | Outpatient (CLI) | payer OTHER, SELFPAY ==
--- NOTE | 2025-04-27 09:24 | BI_ITS ---
EXAM: DIAG MAMM W/CAD, UNILAT 04/27/2025 CLINICAL HISTORY: F, Age 64 y/o , [place]. Right breast pain. Grandmother with breast cancer. History of prior bilateral breast reduction surgery. TECHNIQUE: Procedure Code: [id number] Modality: MG Procedure: DIAG MAMM W/CAD, UNILAT. COMPARISON: Prior exam(s) dated November 03, 2024.. FINDINGS: TISSUE DENSITY: The breasts are almost entirely fatty. Bilateral Breast Mammographic Findings: No significant masses, calcifications or other abnormalities are identified. Stable secretory calcifications. No suspicious masses, areas of developing architectural distortion, or suspicious calcifications. There has been no significant interval change. BI/DIAG MAMM W/CAD, UNILAT IMPRESSION: Stable examination. With the patient's history of localized right breast pain, targeted sonographic correlation recommended. OVERALL FINAL ASSESSMENT BI-RADS 0: INCOMPLETE - NEED ADDITIONAL IMAGING EVALUATION. RECOMMENDATION: Ultrasound Recommended A letter with findings and recommendations will be mailed to the patient. Reading Location: [place] [address]
--- NOTE | 2025-04-27 09:24 | US_ITS ---
PROCEDURE: BREAST LIMITED UNILATERAL 04/27/2025 REASON FOR EXAM: F, Age 64 y/o , [place]STODYNIA COMPARISON: Prior mammogram done earlier in the day.. TECHNIQUE: Procedure Code: USBRSTLIMIT Modality: US Procedure: BREAST LIMITED UNILATERAL. Targeted ultrasound of the inferior lateral aspect of the right breast was performed. FINDINGS: Homogeneous fibroglandular tissue. No sonographic abnormality is seen. US/Breast Limited Unilateral IMPRESSION: No sonographic abnormality is seen. BI-RADS 1: NEGATIVE RECOMMENDATION: Routine annual follow-up in 1 Year Reading Location: [place] [address]
== END | disposition home or self-care (01) ==
LOC: OPBI 09:22
PROVIDERS: PCP Family Medicine; Referring Provider Family Medicine; Visit Provider Family Medicine
DX: N64.4 Mastodynia (principal)
CPT/HCPCS: 76642; 77061; 77065; G0279